=== PATIENT | female | born 1930 | race Caucasian/White ===

== ENCOUNTER → 2016-02-28 | Outpatient (CLI) | payer OTHER ==
[~2016-02-28] MED LIST: ALPR0.25 PO; AMOX500C3 PO; ASCOCRY2 PO; BUPR1DIS TD; BUPR20DI TOP; BUSP5TAB59 PO; CETI10TA10 PO; CHOL100010 PO; CLTP PO; CMD25 PO; CYAN100048 PO; CYM/60 PO; DOCU-94 PO; FIBER PO; FLUT0.15 INTNAS; HYDR-3983 PO; LISI10TA PO; LSN/10125 PO; METO25TA3 PO; MULT-1092 PO; MULT-188 PO; MULTTAB58 PO; NUTRTAB55 PO; NXM/40 PO; OSTEO BI FLEX PO; POLY335019 PO; PREG200C PO; PROM12.57 PO; WARF1TAB6 PO; WARF2TAB PO; [UNRECOGNIZED DRUG - CODE] TD
[2016-02-28 13:30] LABS: BASO % 0.3 %; BASO ABS # 0.02 K/uL (0-0.2); COMPLETE YES; EOS % 1.7 %; HEMATOCRIT 40.1 % (37-47); IG% 0.3 %; LYMPH % 24.2 %; LYMPH ABS # 1.43 K/uL (1.2-3.4); MEAN CELL VOLUME 92.8 fL (80-100); MEAN CORPUSCULAR HEMOGLOBIN 30.6 pg (25-34); MEAN CORPUSCULAR HGB CONC 32.9 g/dl (32-36); MEAN PLATELET VOLUME 10.2 fL (7.4-10.4); MONO % 11.7 %; NEUT % 61.8 %; PLATELET COUNT 229 K/uL (130-400); RED BLOOD COUNT 4.32 M/uL (4.2-5.4); WHITE BLOOD COUNT 5.91 K/uL (4.8-10.8)
[2016-02-28 13:49] LABS: ESTIMATED AVERAGE GLUCOSE 117 mg/dl; HA1C FLAG Normal (Normal)
[2016-02-28 14:28] LABS: BLOOD UREA NITROGEN 13 mg/dl (7-18); CREATININE 0.73 mg/dl (0.60-1.20); GLUCOSE 101 mg/dl (70-99)
[2016-02-28 14:29] LABS: BUN/CREATININE RATIO 18.2 (10-20); CALCIUM 9.3 mg/dl (8.5-10.1); CARBON DIOXIDE 25 mmol/L (21-32); CHLORIDE 107 mmol/L (98-107); POTASSIUM 4.2 mmol/L (3.5-5.1); SODIUM 144 mmol/L (136-145)
== END | disposition home or self-care (01) ==
LOC: C.LAB1850 12:10
PROVIDERS: ATTEND Internal Medicine Geriatric Medicine
DX: I10 Essential (primary) hypertension (principal); R73.9 Hyperglycemia, unspecified; M54.16 Radiculopathy, lumbar region; E55.9 Vitamin D deficiency, unspecified

== ENCOUNTER 2016-07-07 11:12 | Emergency (ER) | payer OTHER ==
[~2016-07-07] VITALS: Ht 167.6 cm; Wt 114.5 kg
[~2016-07-07 11:12] MED LIST changes: -AMOX500C3 PO; -BUPR1DIS TD; -BUPR20DI TOP; -BUSP5TAB59 PO; -CHOL100010 PO; -CYAN100048 PO; -FLUT0.15 INTNAS; -LISI10TA PO; -METO25TA3 PO; -MULT-1092 PO; -NUTRTAB55 PO; -PROM12.57 PO; -WARF1TAB6 PO
[2016-07-07 11:17] VITALS: Ht 167.6 cm; Wt 114.5 kg
[2016-07-07 11:30] VITALS: O2SAT 97
[2016-07-07] MEDS ORDERED: MoRPHine SULFATE 10 MG/ML CARP/VIAL IV STA (11:48)
[2016-07-07] MEDS ORDERED: MoRPHine SULFATE 2 MG/ML CARP ONE (11:58)
[2016-07-07] MEDS ORDERED: MoRPHine SULFATE 4 MG/ML 1 ML CARP\\VIAL ONE (12:04)
--- NOTE | 2016-07-07 12:36 | DIAGNOSTIC IMAGING REPORT ---
LEFT FOOT MIN 3 VIEWS ROUTINE CLINICAL HISTORY: Lateral left foot pain at base of fifth. COMPARISON: None FINDINGS: Tarsometatarsal joints are intact. There is osteopenia. 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 No acute fracture is identified although evaluation of the toes is difficult due to chronic deformity. IMPRESSION: 1. No acute fracture or dislocation of the left foot although evaluation of the toes is difficult due to chronic deformity. 2. Severe arthritis within the left midfoot. 3. Osteopenia. Electronically signed by: Pablo Ramirez M.D. 07/07/2016 12:35 PM Dictated Date/Time: 07/07/2016 12:31 PM
[2016-07-07] MEDS ORDERED: LISI10TA PO (12:43)
[2016-07-07] MEDS ORDERED: METO25TA3 PO (12:43)
[2016-07-07] MEDS ORDERED: FLUT0.15 INTNAS (12:43)
[2016-07-07] MEDS ORDERED: BUPR1DIS TD (12:43)
[2016-07-07] MEDS ORDERED: CYAN100048 PO (12:43)
[2016-07-07] MEDS ORDERED: AMOX500C3 PO (12:43)
[2016-07-07] MEDS ORDERED: MULT-1092 PO (12:43)
[2016-07-07] MEDS ORDERED: NUTRTAB55 PO (12:43)
[2016-07-07] MEDS ORDERED: FENTANYL CITRATE INJ 50 MCG/1 ML 2 ML VIAL IV ONE (13:00)
[2016-07-07 13:16] LABS: BASO % 0.3 %; BASO ABS # 0.02 K/uL (0-0.2); COMPLETE YES; EOS % 0.6 %; HEMATOCRIT 43.2 % (37-47); IG% 0.1 %; LYMPH % 23.5 %; MEAN CELL VOLUME 91.7 fL (80-100); MEAN CORPUSCULAR HEMOGLOBIN 31.4 pg (25-34); MEAN CORPUSCULAR HGB CONC 34.3 g/dl (32-36); MEAN PLATELET VOLUME 10.1 fL (7.4-10.4); MONO % 8.1 %; NEUT % 67.4 %; PLATELET COUNT 223 K/uL (130-400); RED BLOOD COUNT 4.71 M/uL (4.2-5.4)
[2016-07-07 13:28] LABS: BUN/CREATININE RATIO 15.6 (10-20); CALCIUM 9.4 mg/dl (8.5-10.1); CREATININE 0.81 mg/dl (0.60-1.20); POTASSIUM 4.1 mmol/L (3.5-5.1)
[2016-07-07] MEDS ORDERED: HYDROmorphone INJ 0.5 MG/0.5 ML SYR IV STA (14:24)
[2016-07-07] MEDS ORDERED: PREGABALIN 100 MG CAP PO STA (14:24)
[2016-07-07 15:22] VITALS: BP 172/60; PULSE 60; TEMP 36.9; O2SAT 96
--- NOTE | 2016-07-07 15:26 | EMERGENCY ROOM VISIT NOTE ---
History Report prepared by Melissa: David Bedoya Under the Supervision of: Dr. Kade Whitley D.O. First contact with patient: 11:31 Chief Complaint: FOOT PAIN Stated Complaint: LEG PAIN History of Present Illness The patient is an 86 year old female who presents to the Emergency Room with complaints of persistent left foot pain that started around 0130 this morning. The patient says the pain woke her up. She notes that she has had neuropathy for quite a few years, but has never had pain this bad before. She says that she is currently nauseated due to the pain. The patient denies any new left leg pain, abdominal pain, new back pain, chest pain, or shortness of breath. She says that she had gone 2 months without any pain before this episode began. The patient states that she has bad arthritis. Her medication list includes Lyrica, Cymbalta, and a Butrans patch. She says that she has gotten behind on her pain medications because she has felt so badly today. Source of History: patient, family Onset: Around 0130 this morning Position: foot (left) Symptom Intensity: worse than ever before Timing: other (persistent) Associated Symptoms: + nausea, No SOB, No abdominal pain, No back pain, No chest pain Note: Associated symptoms: Denies any new leg pain. Review of Systems See HPI for pertinent positives & negatives. A total of 10 systems reviewed and were otherwise negative. Past Medical & Surgical Medical Problems: (1) Benign hypertension (2) Carcinoma of breast (3) Gastroesophageal reflux disease (4) HIP JOINT REPLACEMENT STATUS (5) HX-VENOUS THROMBOSIS&EMBOLISM (6) KNEE JOINT REPLACEMENT STATUS (7) Sleep apnea (8) SSS (sick sinus syndrome) Family History Cancer Heart disease Hypertension Social History Smoking Status: Never Smoker Drug Use: none Marital Status: Housing Status: unknown Occupation Status: retired Current/Historical Medications Scheduled Alprazolam (Xanax), 0.125 MG PO HS Amoxicillin (Amoxil), 500 MG PO TID Ascorbic Acid (Karo-C), 1 TAB PO DAILY Buprenorphine (Butrans), 15 MCG TD WK Cetirizine Hcl (Zyrtec), 10 MG PO DAILY Cyanocobalamin (Vitamin B-12), 1 TAB PO DAILY Docusate Sodium (Colace), 2 CAP PO HS Duloxetine HCl (Cymbalta), 90 MG PO DAILY Esomeprazole Magnesium (Nexium), 40 MG PO DAILY Fiber Laxative (Fiber Laxative), 4 TABS PO TID Fluticasone Propionate (Nasal) (Flonase Allergy Relief), 2 SPRAYS INTNAS DAILY Lisinopril (Prinivil), 10 MG PO DAILY Metoprolol Succ (Toprol Xl) (Toprol-Xl), 25 MG PO DAILY Multiple Vitamin (Multivitamin), 1 TAB PO DAILY Multiple Vitamins W/ Minerals (Ocuvite), 1 TAB PO BID Multiple Vitamins W/ Minerals (Centrum Silver 50+Women), 1 TAB PO DAILY Nutritional Supplements (Osteo Advance), 1 TAB PO DAILY Polyethylene Glycol 3350 (Miralax), 17 GM PO DAILY Pregabalin (Lyrica), 200 MG PO BID Warfarin Sodium (Coumadin), 2 MG PO DAILY Scheduled PRN Hydrocodone/Acetaminophen 7.5MG/325MG ([place] 7.5MG/325MG), 1 TAB PO DAILY PRN for Pain Allergies Coded Allergies: Egg (Verified Allergy, Unknown, DIARRHEA, NAUSEATED, 02/02/15) POLLEN (Verified Allergy, Unknown, ALLERGY TO ALEGRE, 02/02/15) Prednisone (Verified Allergy, Unknown, unknown, 02/02/15) pt does not remember reaction Physical Exam Vital Signs Date Time Temp Pulse Resp B/P Pulse Ox O2 Delivery O2 Flow Rate FiO2 07/07/16 14:47 60 172/60 96 Room Air 07/07/16 13:44 64 20 165/76 95 Room Air 07/07/16 12:02 89 20 97 Room Air 07/07/16 11:30 97 Room Air 07/07/16 11:17 36.9 71 20 173/88 97 Room Air Physical Exam GENERAL: disheveled, sitting up in bed, in no distress EYE EXAM: normal conjunctiva OROPHARYNX: no exudate, no erythema, lips, buccal mucosa, and tongue normal and mucous membranes are moist NECK: supple, no nuchal rigidity, no adenopathy, non-tender LUNGS: Clear to auscultation. Normal chest wall mechanics HEART: no murmurs, S1 normal and S2 normal ABDOMEN: abdomen soft, non-tender, normo-active bowel sounds, no masses, no rebound or guarding. BACK: Back is symmetrical on inspection and there is no deformity, no midline tenderness, no CVA tenderness. SKIN: no rashes and no bruising UPPER EXTREMITIES: upper extremities are grossly normal. LOWER EXTREMITIES: Hypersensitivity of lateral left foot with no swelling or induration. Plantar and dorsal flexion intact. NEURO EXAM: Normal sensorium. Medical Decision & Procedures ER Provider Diagnostic Interpretation: Radiology results as stated below per my review and the radiologist's interpretation: LEFT FOOT MIN 3 VIEWS ROUTINE CLINICAL HISTORY: Lateral left foot pain at base of fifth. COMPARISON: None FINDINGS: Tarsometatarsal joints are intact. There is osteopenia. 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 No acute fracture is identified although evaluation of the toes is difficult due to chronic deformity. IMPRESSION: 1. No acute fracture or dislocation of the left foot although evaluation of the toes is difficult due to chronic deformity. 2. Severe arthritis within the left midfoot. 3. Osteopenia. Electronically signed by: Pablo Ramirez M.D. 07/07/2016 12:35 PM Dictated Date/Time: 07/07/2016 12:31 PM Laboratory Results 07/07/16 11:20 Red Blood Count 4.71, Mean Corpuscular Volume 91.7, Mean Corpuscular Hemoglobin 31.4, Mean Corpuscular Hemoglobin Concent 34.3, Mean Platelet Volume 10.1, Neutrophils (%) (Auto) 67.4, Lymphocytes (%) (Auto) 23.5, Monocytes (%) (Auto) 8.1, Eosinophils (%) (Auto) 0.6, Basophils (%) (Auto) 0.3, Neutrophils # (Auto) 4.58, Lymphocytes # (Auto) 1.60, Monocytes # (Auto) 0.55, Eosinophils # (Auto) 0.04, Basophils # (Auto) 0.02 07/07/16 11:20 Test 07/07/16 11:20 White Blood Count 6.80 K/uL (4.8-10.8) Red Blood Count 4.71 M/uL (4.2-5.4) Hemoglobin 14.8 g/dL (12.0-16.0) Hematocrit 43.2 % (37-47) Mean Corpuscular Volume 91.7 fL (80-100) Mean Corpuscular Hemoglobin 31.4 pg (25-34) Mean Corpuscular Hemoglobin Concent 34.3 g/dl (32-36) Platelet Count 223 K/uL (130-400) Mean Platelet Volume 10.1 fL (7.4-10.4) Neutrophils (%) (Auto) 67.4 % Lymphocytes (%) (Auto) 23.5 % Monocytes (%) (Auto) 8.1 % Eosinophils (%) (Auto) 0.6 % Basophils (%) (Auto) 0.3 % Neutrophils # (Auto) 4.58 K/uL (1.4-6.5) Lymphocytes # (Auto) 1.60 K/uL (1.2-3.4) Monocytes # (Auto) 0.55 K/uL (0.11-0.59) Eosinophils # (Auto) 0.04 K/uL (0-0.5) Basophils # (Auto) 0.02 K/uL (0-0.2) RDW Standard Deviation 42.1 fL (36.4-46.3) RDW Coefficient of Variation 12.4 % (11.5-14.5) Immature Granulocyte % (Auto) 0.1 % Immature Granulocyte # (Auto) 0.01 K/uL (0.00-0.02) Anion Gap 7.0 mmol/L (3-11) Est Creatinine Clear Calc Drug Dose 66.4 ml/min Estimated GFR () 77.3 Estimated GFR (Non- 66.7 BUN/Creatinine Ratio 15.6 (10-20) Calcium Level 9.4 mg/dl (8.5-10.1) Laboratory results per my review. Medications Administered Medications (Trade) Dose Ordered Sig/Ana Cristina Route Start Time Stop Time Status Last Admin Dose Admin Morphine Sulfate (MoRPHine SULFATE INJ) 2 mg STK-MED ONCE .ROUTE 07/07/16 11:58 07/07/16 11:59 DC 07/07/16 12:02 2 MG Morphine Sulfate (MoRPHine SULFATE INJ) 4 mg STK-MED ONCE .ROUTE 07/07/16 12:04 07/07/16 12:05 DC 07/07/16 12:31 4 MG Fentanyl Citrate (Fentanyl Inj) 75 mcg NOW ONCE IV 07/07/16 13:00 07/07/16 13:01 DC 07/07/16 13:41 75 MCG Pregabalin (Lyrica Cap) 200 mg NOW STAT PO 07/07/16 14:24 5/14/17 14:25 DC 07/07/16 14:49 200 MG Hydromorphone HCl (Dilaudid Inj) 0.5 mg NOW STAT IV 07/07/16 14:24 07/07/16 14:25 DC 07/07/16 14:33 0.5 MG ED Course ED COURSE: Vital signs were reviewed and showed hypertensive vitals. The patients medical record was reviewed The above diagnostic studies were performed and reviewed. ED treatments and interventions as stated above. 1141: The patient was evaluated in room C9. A complete history and physical examination was performed. 1148: Ordered Morphine Sulfate Inj 6 mg IV. 1257: I reevaluated the patient and she is still having foot pain. 1300: Ordered Fentanyl Inj 75 mcg IV. 1340: I reevaluated the patient and she is still having pain. 1423: I reevaluated the patient and she is still in a lot of pain. 1424: Ordered Dilaudid Inj 0.5 mg IV, Lyrica Cap 200 mg PO. 1453: I reevaluated the patient and she is still complaining of pain. 1523: Upon reevaluation, the patient is ambulating and feeling better.I discussed my findings with the patient and family understands and agrees with the treatment plan. Based on the patients age, coexisting illnesses, exam and lab findings the decision to treat as an outpatient was made. The patient remained stable while under my care. The patient appeared well at the time of discharge. Medical Decision Prior records reviewed and summarized above. Triage Nursing notes reviewed and agree them. Differential diagnosis: Etiologies such as fracture, dislocation, neurovascular compromise, compartment syndrome, soft tissue injury, as well as others were entertained. Patient is an 86-year-old female who presents the ER for left lateral foot pain. She notes that this has been present since around 1 AM this morning. She notes that she has been getting this pain for the past several years and moves from one foot to the other. Signs of trauma, erythema or induration. Good pulses. Patient is neurologically intact. She is able to ambulate. She was discharged following morphine, Dilaudid and fentanyl to follow-up with her primary care doctor. Care management will set up an earlier appointment with pain management. Discussed with Pt concerning signs and symptoms to watch out for. Pt was instructed to follow up with their PCP and discussed with the patient their option to return to the ED at anytime for persistent or worsening symptoms. The appropriate anticipatory guidance and out-patient management, including indications for return to the emergency department, were explained at length to the patient and understood. Impression Primary Impression: Foot pain Scribe Attestation The scribe's documentation has been prepared under my direction and personally reviewed by me in its entirety. I confirm that the note above accurately reflects all work, treatment, procedures, and medical decision making performed by me. Departure Information Referrals Mauricio Duran M.D. (PCP) Patient Instructions My [facility] Problem Qualifiers Primary Impression: Foot pain Laterality: left Qualified Codes: M79.672 - Pain in left foot
[2016-07-18] MEDS ORDERED: WARF1TAB6 PO (11:24)
[2016-07-18] MEDS ORDERED: CHOL100010 PO (11:24)
[2016-11-20] MEDS ORDERED: CMD25 PO (11:07)
[2017-01-21] MEDS ORDERED: BUPR20DI TOP (10:53)
== END 2016-07-07 15:23 | disposition home or self-care (01) ==
LOC: EDBD 11:12 → C.EDC 11:13
DX: M79.672 Pain in left foot (principal); M19.072 Primary osteoarthritis, left ankle and foot; M85.872 Other specified disorders of bone density and structure, left ankle and foot; G62.9 Polyneuropathy, unspecified; I10 Essential (primary) hypertension; K21.9 Gastro-esophageal reflux disease without esophagitis; I49.5 Sick sinus syndrome; G47.30 Sleep apnea, unspecified; Z85.3 Personal history of malignant neoplasm of breast; Z96.649 Presence of unspecified artificial hip joint; Z96.659 Presence of unspecified artificial knee joint; Z86.718 Personal history of other venous thrombosis and embolism; Z79.01 Long term (current) use of anticoagulants; Z82.49 Family history of ischemic heart disease and other diseases of the circulatory system

== ENCOUNTER → 2016-08-07 | Outpatient (CLI) | payer OTHER ==
[~2016-08-07] MED LIST changes: -ALPR0.25 PO; +BUPR1DIS TD; +BUPR20DI TOP; +BUSP5TAB59 PO; +CHOL100010 PO; -CLTP PO; +CYAN100048 PO; -DOCU-94 PO; +FLUT0.15 INTNAS; +LISI10TA PO; -LSN/10125 PO; +METO25TA3 PO; +MULT-1092 PO; +NUTRTAB55 PO; -OSTEO BI FLEX PO; +PROM12.57 PO; +WARF1TAB6 PO; -[UNRECOGNIZED DRUG - CODE] TD
[2016-08-07 17:28] LABS: BASO % 0.3 %; BASO ABS # 0.02 K/uL (0-0.2); COMPLETE YES; EOS % 2.3 %; HEMATOCRIT 41.7 % (37-47); IG% 0.2 %; LYMPH % 30.2 %; LYMPH ABS # 1.96 K/uL (1.2-3.4); MEAN CELL VOLUME 94.1 fL (80-100); MEAN CORPUSCULAR HEMOGLOBIN 30.9 pg (25-34); MEAN CORPUSCULAR HGB CONC 32.9 g/dl (32-36); MONO % 11.8 %; NEUT % 55.2 %; PLATELET COUNT 219 K/uL (130-400); RED BLOOD COUNT 4.43 M/uL (4.2-5.4)
[2016-08-07 18:17] LABS: BLOOD UREA NITROGEN 13 mg/dl (7-18); BUN/CREATININE RATIO 18.1 (10-20); CALCIUM 8.8 mg/dl (8.5-10.1); CARBON DIOXIDE 30 mmol/L (21-32); CHLORIDE 106 mmol/L (98-107); CREATININE 0.73 mg/dl (0.60-1.20); GLUCOSE 86 mg/dl (70-99); POTASSIUM 4.5 mmol/L (3.5-5.1); SODIUM 142 mmol/L (136-145)
[2016-08-07 18:27] LABS: FERRITIN 127.9 ng/ml (8.0-388.0); THYROID STIMULATING HORMONE 0.905 uIu/ml (0.300-4.500)
[2016-08-08 06:39] LABS: ESTIMATED AVERAGE GLUCOSE 123 mg/dl; HA1C FLAG Normal (Normal)
== END | disposition home or self-care (01) ==
LOC: C.LABBC 15:09
PROVIDERS: ATTEND Internal Medicine Geriatric Medicine
DX: I10 Essential (primary) hypertension (principal); G47.33 Obstructive sleep apnea (adult) (pediatric); R73.9 Hyperglycemia, unspecified; M19.90 Unspecified osteoarthritis, unspecified site; I49.5 Sick sinus syndrome; E55.9 Vitamin D deficiency, unspecified; I48.0 Paroxysmal atrial fibrillation; F41.8 Other specified anxiety disorders

== ENCOUNTER → 2016-08-29 | Outpatient (CLI) | payer OTHER ==
[~2016-08-29] MED LIST changes: -BUPR20DI TOP
--- NOTE | 2016-08-29 16:08 | DIAGNOSTIC IMAGING REPORT ---
ABDOMEN 2VIEW W/PA CHEST RTN HISTORY:86 yearsFemaleNAUSEA COMPARISON: Chest radiographs 02/03/2015, lumbar spine radiographs 04/20/2013. TECHNIQUE: Upright AP view the chest with upright (sitting) and supine views of the abdomen. FINDINGS: The cardiac silhouette is again moderately enlarged with atherosclerosis of the aorta. Left pectoral dual-lead pacer is again noted with leads appearing to be intact. No pneumothorax or pleural effusion. There is primary vascular prominence with mild background interstitial coarsening, unchanged. Severe osteoarthritis is present within the left shoulder with apparent partial ankylosis of the superior portion of the joint space. Right shoulder hemiarthroplasty is noted. IVC filter is noted in the right upper abdomen at the level of L1-L2. Right hip arthroplasty noted. Severe osteoarthritis of the left hip. The bones are diffusely demineralized. There is convex left curvature of the lumbar spine. Vascular calcifications are noted. Nondilated gas-filled loops of both large and small bowel are seen throughout the abdomen without definite pneumoperitoneum or obstructive pattern. IMPRESSION: 1. Multiple nondilated gas-filled loops of large and small bowel may reflect adynamic ileus. No evidence of bowel obstruction or pneumoperitoneum. 2. Unchanged cardiomegaly with mild background interstitial coarsening. The above report was generated using voice recognition software. It may contain grammatical, syntax or spelling errors. Electronically signed by: Erwin Quiñonez 08/29/2016 4:07 PM Dictated Date/Time: 08/29/2016 4:01 PM
== END | disposition home or self-care (01) ==
LOC: C.RADBC 14:32
PROVIDERS: ATTEND Physician Assistant
DX: R11.0 Nausea (principal); Z96.641 Presence of right artificial hip joint

== ENCOUNTER → 2016-08-30 | Outpatient (CLI) | payer OTHER ==
--- NOTE | 2016-08-30 15:03 | DIAGNOSTIC IMAGING REPORT ---
ABDOMEN 2VIEW W/PA CHEST RTN CLINICAL HISTORY: NAUSEA R11.0 COMPARISON STUDY: 08/29/2016 FINDINGS: The heart is enlarged. There is a left subclavian dual-chamber central venous pacemaker present. No free air is visualized. There is interstitial thickening. There are advanced arthritic changes involving the left shoulder. There are postsurgical changes of a total right shoulder arthroplasty.] Supine views the abdomen reveal an IVC filter. There are postsurgical changes of a total right hip arthroplasty. There are advanced arthritic changes present within the left hip. There are no abnormally dilated loops of large or small bowel. There are no transition zones indicate bowel obstruction. There are multiple pelvic basin calcifications, likely representing phleboliths. IMPRESSION: No evidence of bowel obstruction. No evidence of free air. Electronically signed by: Samuel Cristina M.D. 08/30/2016 3:01 PM Dictated Date/Time: 08/30/2016 2:59 PM
== END | disposition home or self-care (01) ==
LOC: C.RAD 13:55
PROVIDERS: ATTEND Physician Assistant
DX: R11.0 Nausea (principal); Z95.0 Presence of cardiac pacemaker; I51.7 Cardiomegaly

== ENCOUNTER 2016-08-31 09:46 | Emergency (ER) | payer OTHER ==
[~2016-08-31] VITALS: Ht 167.6 cm; Wt 109.6 kg
[~2016-08-31 09:46] MED LIST changes: -BUSP5TAB59 PO; -CMD25 PO; -PROM12.57 PO
[2016-08-31] MEDS ORDERED: ONDANSETRON INJ 2 MG/ML 2 ML VIAL IV STA (10:01)
[2016-08-31] MEDS ORDERED: SODIUM CHLORIDE 0.9% 1000ML 1,000 ML IV STA (10:01)
[2016-08-31] MEDS ORDERED: PROMETHAZINE HCL INJ 6.25 MG in SODIUM CHLORIDE 0.9% 50ML 50 ML IV STA (10:03)
[2016-08-31 10:10] VITALS: TEMP 36.8; Ht 167.6 cm; Wt 109.6 kg
[2016-08-31] MEDS ORDERED: OPTIRAY 320 IV PRN (10:15)
--- NOTE | 2016-08-31 10:19 | DIAGNOSTIC IMAGING REPORT ---
CHEST ONE VIEW PORTABLE CLINICAL HISTORY: Pain, radiating to the abdomen COMPARISON STUDY: 08/30/2016 FINDINGS: The heart remains mildly enlarged. There is aortic tortuosity. There is a left subclavian dual-chamber central venous pacemaker present. There is stable interstitial thickening. There is no lobar consolidation. Advanced arthritic changes are present within the left shoulder. There are postsurgical changes of a right shoulder arthroplasty. No pleural effusions are visualized.[ IMPRESSION: Cardiomegaly and stable interstitial thickening. No evidence of focal pulmonary consolidation. No evidence of free intraperitoneal air. Electronically signed by: Samuel Cristina M.D. 08/31/2016 10:18 AM Dictated Date/Time: 08/31/2016 10:16 AM
--- NOTE | 2016-08-31 10:36 | EMERGENCY ROOM VISIT NOTE ---
History Report prepared by Melissa: Charlotte Lieberman Under the Supervision of: Dr. Johnathan Berrios D.O. First contact with patient: 09:51 Stated Complaint: ABD PAIN History of Present Illness The patient is a 86 year old female who presents to the Emergency Room with complaints of constant nausea beginning 4 days ago. The patient states that she had an ileus recently and has been on a liquid diet since her procedure. 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 The patient reports that she saw her doctor yesterday and got an x-ray that showed a gas loop in her bowel. She complains of constant upper and lower abdominal pain. She denies any vomiting, fever, black stools, and bloody stools. Source of History: patient Onset: 4 days ago Position: other (global) Quality: other (nausea) Timing: constant Associated Symptoms: + abdominal pain, No fevers, No vomiting Note: Pt denies any black or bloody stools. Review of Systems See HPI for pertinent positives & negatives. A total of 10 systems reviewed and were otherwise negative. Past Medical & Surgical Medical Problems: (1) Benign hypertension (2) Carcinoma of breast (3) Gastroesophageal reflux disease (4) HIP JOINT REPLACEMENT STATUS (5) HX-VENOUS THROMBOSIS&EMBOLISM (6) KNEE JOINT REPLACEMENT STATUS (7) Sleep apnea (8) SSS (sick sinus syndrome) Family History Cancer Heart disease Hypertension Social History Smoking Status: Never Smoker Drug Use: none Marital Status: Housing Status: unknown Occupation Status: retired Current/Historical Medications Scheduled Ascorbic Acid (Karo-C), 1 TAB PO DAILY Buprenorphine (Butrans), 15 MCG TD WK Buspirone Hcl (Buspirone Hcl), 5 MG PO DAILY Cetirizine Hcl (Zyrtec), 10 MG PO DAILY Cholecalciferol (Vitamin D), 1,000 MG PO QD Cyanocobalamin (Vitamin B-12), 1 TAB PO DAILY Duloxetine HCl (Cymbalta), 90 MG PO DAILY Esomeprazole Magnesium (Nexium), 40 MG PO DAILY Fiber Laxative (Fiber Laxative), 4 TABS PO TID Fluticasone Propionate (Nasal) (Flonase Allergy Relief), 2 SPRAYS INTNAS DAILY Lisinopril (Prinivil), 10 MG PO DAILY Metoprolol Succ (Toprol Xl) (Toprol-Xl), 25 MG PO DAILY Multiple Vitamin (Multivitamin), 1 TAB PO DAILY Multiple Vitamins W/ Minerals (Ocuvite), 1 TAB PO BID Multiple Vitamins W/ Minerals (Centrum Silver 50+Women), 1 TAB PO DAILY Nutritional Supplements (Osteo Advance), 1 TAB PO DAILY Polyethylene Glycol 3350 (Miralax), 17 GM PO DAILY Pregabalin (Lyrica), 200 MG PO BID Promethazine (Phenergan ), 1 TABS PO Q6 Warfarin Sodium (Coumadin), 2 MG PO DAILY Scheduled PRN Hydrocodone/Acetaminophen 7.5MG/325MG ([place] 7.5MG/325MG), 1 TAB PO DAILY PRN for Pain Allergies Coded Allergies: Egg (Verified Allergy, Unknown, DIARRHEA, NAUSEATED, 08/31/16) POLLEN (Verified Allergy, Unknown, ALLERGY TO ALEGRE, 08/31/16) Prednisone (Verified Allergy, Unknown, unknown, 08/31/16) pt does not remember reaction Physical Exam Vital Signs Date Time Temp Pulse Resp B/P (MAP) Pulse Ox O2 Delivery O2 Flow Rate FiO2 08/31/16 15:04 62 20 180/83 95 08/31/16 14:30 62 20 180/83 95 Room Air 08/31/16 12:43 61 20 182/65 90 Room Air 08/31/16 11:33 61 20 180/88 94 Room Air 08/31/16 10:10 36.8 78 14 191/87 95 Room Air 08/31/16 10:09 72 Physical Exam GENERAL: Patient is awake and alert. Patient is uncomfortable and very anxious appearing EYES: The conjunctivae are clear. The pupils are round and reactive. EARS, NOSE, MOUTH AND THROAT: The nose is without any evidence of any deformity. Mucous membranes are moist tongue is midline NECK: The neck is nontender and supple. RESPIRATORY: Normal respiratory effort is noted there is no evidence of wheezing rhonchi or rales CARDIOVASCULAR: Regular rate and rhythm noted there no murmurs rubs or gallops normal S1 normal S2 GASTROINTESTINAL: The abdomen is soft. Bowel sounds are present in all quadrants. Abdomen is moderately distended and diffusely tender, there was no specific guarding but tenderness was moderate to severe. MUSCULOSKELETAL/EXTREMITIES: There is no evidence of gross deformity full range of motion is noted in the hips and shoulders SKIN: There is no obvious evidence of any rash. There are no petechiae, pallor or cyanosis noted. Pedal edema bilaterally. NEUROLOGIC: Patient is awake alert and oriented x3 Medical Decision & Procedures ER Provider Diagnostic Interpretation: Radiology results as stated below per my review and radiologist interpretation: CHEST ONE VIEW PORTABLE FINDINGS: The heart remains mildly enlarged. There is aortic tortuosity. There is a left subclavian dual-chamber central venous pacemaker present. There is stable interstitial thickening. There is no lobar consolidation. Advanced arthritic changes are present within the left shoulder. There are postsurgical changes of a right shoulder arthroplasty. No pleural effusions are visualized.[ IMPRESSION: Cardiomegaly and stable interstitial thickening. No evidence of focal pulmonary consolidation. No evidence of free intraperitoneal air. Electronically signed by: Samuel Cristina M.D. 08/31/2016 10:18 AM Dictated Date/Time: 08/31/2016 10:[address] ABD/PELVIS IV CONTRAST ONLY FINDINGS: Lower chest: There is bibasal interstitial thickening. The heart is enlarged. There is a hiatal hernia. Liver: The contrast-enhanced liver is normal in size, contour, and attenuation. There is no intrahepatic biliary ductal dilatation. The hepatic veins and portal veins are patent. Gallbladder: Not visualized and presumed surgically absent Spleen: Normal in size and attenuation. Pancreas: Mildly atrophic Adrenal glands: Unremarkable. Kidneys: There are left renal hypodensities the largest of which measures 9 mm. These likely represent cysts Bowel: There are no transition zones indicate bowel obstruction. By history the appendix is surgically absent. There is colonic diverticulosis. There is no acute peridiverticular inflammatory change. Peritoneum: There is no intraperitoneal free air or abdominal ascites. There are postsurgical changes of a ventral hernia repair. Vasculature: There is no evidence of abdominal aortic aneurysm. There is an indwelling IVC filter. Adenopathy: None. Pelvic viscera: The bladder, and pelvic viscera are unremarkable. There is artifact secondary to a right hip arthroplasty. Skeletal structures: There is right iliopsoas atrophy. Degenerative changes are present within the spine. There are advanced arthritic changes present within the left hip. There is a total right hip arthroplasty. Acetabular screw extends into the soft tissue pelvis IMPRESSION: 1. No evidence of bowel obstruction. No evidence of free air 2. Diverticulosis. No evidence of acute diverticulitis 3. Surgically absent appendix 4. No acute inflammatory changes Electronically signed by: Samuel Cristina M.D. 08/31/2016 11:31 AM Dictated Date/Time: 08/31/2016 11:[address] HEAD WITHOUT CONTRAST (CT) FINDINGS: No intra or extra-axial mass lesions are visualized. There is no CT evidence of acute cortical infarction. There is no evidence of midline shift. There is no acute hemorrhage. No calvarial fractures are visualized. There are patchy white matter hypodensities likely on a small vessel basis. There is no evidence of pathologic ventricular dilatation. There is sphenoid sinus mucosal thickening similar to the prior 2013 study. Vascular enhancement is secondary to contrast received during a CT scan earlier in the day IMPRESSION: No acute intracranial findings Electronically signed by: Samuel Cristina M.D. 08/31/2016 1:15 PM Dictated Date/Time: 08/31/2016 1:13 PM Laboratory Results 08/31/16 10:25 Red Blood Count 4.62, Mean Corpuscular Volume 91.3, Mean Corpuscular Hemoglobin 30.7, Mean Corpuscular Hemoglobin Concent 33.6, Mean Platelet Volume 9.7, Neutrophils (%) (Auto) 69.9, Lymphocytes (%) (Auto) 18.3, Monocytes (%) (Auto) 10.3, Eosinophils (%) (Auto) 1.0, Basophils (%) (Auto) 0.3, Neutrophils # (Auto ) 4.37, Lymphocytes # (Auto) 1.14, Monocytes # (Auto) 0.64, Eosinophils # (Auto ) 0.06, Basophils # (Auto) 0.02 08/31/16 10:25 Test 08/31/16 10:25 08/31/16 10:33 08/31/16 10:37 White Blood Count 6.24 K/uL (4.8-10.8) Red Blood Count 4.62 M/uL (4.2-5.4) Hemoglobin 14.2 g/dL (12.0-16.0) Hematocrit 42.2 % (37-47) Mean Corpuscular Volume 91.3 fL (80-100) Mean Corpuscular Hemoglobin 30.7 pg (25-34) Mean Corpuscular Hemoglobin Concent 33.6 g/dl (32-36) Platelet Count 215 K/uL (130-400) Mean Platelet Volume 9.7 fL (7.4-10.4) Neutrophils (%) (Auto) 69.9 % Lymphocytes (%) (Auto) 18.3 % Monocytes (%) (Auto) 10.3 % Eosinophils (%) (Auto) 1.0 % Basophils (%) (Auto) 0.3 % Neutrophils # (Auto) 4.37 K/uL (1.4-6.5) Lymphocytes # (Auto) 1.14 K/uL (1.2-3.4) Monocytes # (Auto) 0.64 K/uL (0.11-0.59) Eosinophils # (Auto) 0.06 K/uL (0-0.5) Basophils # (Auto) 0.02 K/uL (0-0.2) RDW Standard Deviation 42.3 fL (36.4-46.3) RDW Coefficient of Variation 12.6 % (11.5-14.5) Immature Granulocyte % (Auto) 0.2 % Immature Granulocyte # (Auto) 0.01 K/uL (0.00-0.02) Prothrombin Time 21.0 SECONDS (9.0-12.0) Prothromb Time International Ratio 1.9 (0.9-1.1) Activated Partial Thromboplast Time 34.1 SECONDS (21.0-31.0) Partial Thromboplastin Ratio 1.3 Urine Color YELLOW Urine Appearance CLEAR (CLEAR) Urine pH 8.5 (4.5-7.5) Urine Specific [place] 1.009 (1.000-1.030) Urine Protein NEG (NEG) Urine Glucose (UA) NEG (NEG) Urine Ketones 2+ (NEG) Urine Occult Blood TRACE (NEG) Urine Nitrite NEG (NEG) Urine Bilirubin NEG (NEG) Urine Urobilinogen NEG (NEG) Urine Leukocyte Esterase NEG (NEG) Urine WBC (Auto) 1-5 /hpf (0-5) Urine RBC (Auto) 5-10 /hpf (0-4) Urine Hyaline Casts (Auto) 0 /lpf (0-5) Urine Epithelial Cells (Auto) 10-20 /lpf (0-5) Urine Bacteria (Auto) NEG (NEG) Est Creatinine Clear Calc Drug Dose 62.5 ml/min Estimated GFR () 74.0 Estimated GFR (Non- 63.8 BUN/Creatinine Ratio 12.6 (10-20) Calcium Level 9.0 mg/dl (8.5-10.1) Total Bilirubin 1.2 mg/dl (0.2-1) Direct Bilirubin 0.2 mg/dl (0-0.2) Aspartate Amino Transf (AST/SGOT) 16 U/L (15-37) Alanine Aminotransferase (ALT/SGPT) 16 U/L (12-78) Alkaline Phosphatase 84 U/L (45-117) Total Creatine Kinase 53 U/L (26-192) Creatine Kinase MB 1.2 ng/ml (0.5-3.6) Creatine Kinase MB Ratio 2.3 (0-3.0) Troponin I 0.015 ng/ml (0-0.045) Total Protein 7.5 gm/dl (6.4-8.2) Albumin 3.5 gm/dl (3.4-5.0) Lipase 81 U/L (73-393) Bedside Lactic Acid Venous 1.21 mmol/L (0.90-1.70) Bedside Hemoglobin 15.0 g/dl (12.0-16.0) Bedside Hematocrit 44 % (37-47) Bedside Sodium 141 mEq/L (135-144) Bedside Potassium 3.8 mEq/L (3.3-5.0) Bedside Chloride 103 mEq/L (101-112) Bedside Total CO2 24 mEq/l (24-31) Anion Gap 19.0 mmol/L (16-25) Bedside Blood Urea Nitrogen 10 mg/dl (7-18) Bedside Creatinine 0.7 mg/dl (0.6-1.3) Bedside Glucose (other) 108 mg/dl (70-99) Bedside Ionized Calcium (Rachel) 1.14 mmol/l (1.12-1.32) Laboratory results per my review. Medications Administered Medications (Trade) Dose Ordered Sig/Ana Cristina Route Start Time Stop Time Status Last Admin Dose Admin Sodium Chloride 1,000 ml @ 999 mls/hr Q1H1M STAT IV 08/31/16 10:01 08/31/16 11:01 DC 08/31/16 11:33 999 MLS/HR Promethazine HCl 6.25 mg/Sodium Chloride 50.25 ml @ 204 mls/hr NOW STAT IV 08/31/16 10:03 08/31/16 10:17 DC 08/31/16 11:33 204 MLS/HR Acetaminophen/ Hydrocodone Bitart ([place] 7.5/325 Tab) 1 tab NOW STAT PO 08/31/16 13:33 08/31/16 13:34 DC 08/31/16 13:58 1 TAB ECG Indication: abdominal pain Rate (beats per minute): 71 Rhythm: other (atrial paced) Findings: other (no PVCs, No ST segment abnormalities) Comparison ECG Date: 02/02/15 Change: no significant change ED Course 0951: The patient was evaluated in room A12B. A complete history and physical examination were performed. 1001: Zofran Inj 4mg IV, NSS 1,000 ml @ 999 mls/hr IV, Promethazine HCl 6.25mg/ Sodium Chloride 50.25ml @ 204mls/hr IV. 1333: Hydrocodone Bitart/Acetaminophen 1 tab PO. 1402: I reevaluated and updated the patient. 1419: Upon reevaluation, the patient is doing well. I discussed the results and treatment plan with the patient. She verbalized agreement of the treatment plan. The patient was discharged home. Medical Decision Differential diagnosis: Etiologies such as appendicitis, diverticulitis, PUD, biliary pathology, UTI, pancreatitis, obstruction, mesenteric ischemia, aortic pathology, infections, inflammatory bowel disease, renal colic, as well as others were entertained. Medication Reconciliation: I attest that I have personally reviewed the patient' s current medications list. Blood pressure screening: Patient was found to have an elevated blood pressure and was referred to their primary doctor for recheck and further treatment. The patient is an 86-year-old female who presented to the emergency department for ongoing abdominal discomfort and nausea. It sounds of the patient started having the symptoms recently and was seen by her primary care physician. She was treated with antiemetics prior to arrival but continued to have significant nausea. She further was treated in the emergency department and on subsequent reevaluation was feeling much better. I was concerned given the patient's history and physical exam she had some other significant intra-abdominal pathology. I was shocked by the lack of findings on her CT of the abdomen and pelvis. For this reason a CT the head was obtained to also encouraged for this was not a neurologic cause for her nausea. The patient was reevaluated multiple times. I discussed the patient's laboratory and radiographic studies with her and her family members. She was encouraged to continue all medications as prescribed and follow-up with her family doctor soon as possible return to the emergency department immediately symptoms change worsen or the need arises. Impression Primary Impression: Nausea Additional Impression: Abdominal pain Scribe Attestation The scribe's documentation has been prepared under my direction and personally reviewed by me in its entirety. I confirm that the note above accurately reflects all work, treatment, procedures, and medical decision making performed by me. Departure Information Dispostion Home / Self-Care Prescriptions Promethazine (Phenergan ) 12.5 Mg Tab 1 TABS PO Q6 for Nausea or Vomiting, #20 TAB Prov: Johnathan Berrios, DO 08/31/16 Referrals Mauricio Duran M.D. (PCP) Forms HOME CARE DOCUMENTATION FORM, IMPORTANT VISIT INFORMATION Patient Instructions My [facility], Nausea Vomit Control Additional Instructions Call your family doctor on Friday to schedule a follow-up appointment. Continue all medications as prescribed. Continue drinking plenty of liquids. Have a repeat blood pressure check with your family this week because her blood pressure was mildly elevated today in the emergency department. Problem Qualifiers Additional Impression: Abdominal pain Abdominal location: unspecified location Qualified Codes: R10.9 - Unspecified abdominal pain
[2016-08-31 10:46] LABS: BASO % 0.3 %; BASO ABS # 0.02 K/uL (0-0.2); COMPLETE YES; HEMATOCRIT 42.2 % (37-47); IG% 0.2 %; LYMPH % 18.3 %; LYMPH ABS # 1.14 K/uL (1.2-3.4); MEAN CELL VOLUME 91.3 fL (80-100); MEAN CORPUSCULAR HEMOGLOBIN 30.7 pg (25-34); MEAN CORPUSCULAR HGB CONC 33.6 g/dl (32-36); MEAN PLATELET VOLUME 9.7 fL (7.4-10.4); MONO % 10.3 %; NEUT % 69.9 %; PLATELET COUNT 215 K/uL (130-400); RED BLOOD COUNT 4.62 M/uL (4.2-5.4); WHITE BLOOD COUNT 6.24 K/uL (4.8-10.8)
[2016-08-31 10:54] LABS: INR 1.9 (0.9-1.1); PARTIAL THROMBOPLASTIN RATIO 1.3
[2016-08-31 11:00] LABS: ISTAT CREATININE 0.7 mg/dl (0.6-1.3); ISTAT IONIZED CALCIUM 1.14 mmol/l (1.12-1.32)
[2016-08-31 11:05] LABS: URINE APPEARANCE CLEAR (CLEAR); URINE BILIRUBIN NEG (NEG); URINE COLOR YELLOW; URINE NITRITE NEG (NEG); URINE PH 8.5 (4.5-7.5); URINE SPECIFIC GRAVITY 1.009 (1.000-1.030); UROBILINOGEN NEG (NEG)
[2016-08-31 11:08] LABS: MANUAL MICROSCOPIC REQUIRED? NO; REVIEW REQ? NO
[2016-08-31 11:09] LABS: BUN/CREATININE RATIO 12.6 (10-20); CREATININE 0.84 mg/dl (0.60-1.20); POTASSIUM 3.9 mmol/L (3.5-5.1)
[2016-08-31 11:15] LABS: CKMB/CK RATIO 2.3 (0-3.0)
--- NOTE | 2016-08-31 11:33 | DIAGNOSTIC IMAGING REPORT ---
CT ABD/PELVIS IV CONTRAST ONLY CLINICAL HISTORY: Lower abdominal pain. Nausea. COMPARISON STUDY: 09/13/2012 TECHNIQUE: Following the IV administration of 94 mL of Optiray-320, CT scan of the abdomen and pelvis was performed from the lung bases to the proximal femurs. Images are reviewed in the axial, sagittal, and coronal planes. IV contrast was administered without complication. CT DOSE: 1507.86 mGy.cm FINDINGS: Lower chest: There is bibasal interstitial thickening. The heart is enlarged. There is a hiatal hernia. Liver: The contrast-enhanced liver is normal in size, contour, and attenuation. There is no intrahepatic biliary ductal dilatation. The hepatic veins and portal veins are patent. Gallbladder: Not visualized and presumed surgically absent Spleen: Normal in size and attenuation. Pancreas: Mildly atrophic Adrenal glands: Unremarkable. Kidneys: There are left renal hypodensities the largest of which measures 9 mm. These likely represent cysts Bowel: There are no transition zones indicate bowel obstruction. By history the appendix is surgically absent. There is colonic diverticulosis. There is no acute peridiverticular inflammatory change. Peritoneum: There is no intraperitoneal free air or abdominal ascites. There are postsurgical changes of a ventral hernia repair. Vasculature: There is no evidence of abdominal aortic aneurysm. There is an indwelling IVC filter. Adenopathy: None. Pelvic viscera: The bladder, and pelvic viscera are unremarkable. There is artifact secondary to a right hip arthroplasty. Skeletal structures: There is right iliopsoas atrophy. Degenerative changes are present within the spine. There are advanced arthritic changes present within the left hip. There is a total right hip arthroplasty. Acetabular screw extends into the soft tissue pelvis IMPRESSION: 1. No evidence of bowel obstruction. No evidence of free air 2. Diverticulosis. No evidence of acute diverticulitis 3. Surgically absent appendix 4. No acute inflammatory changes Electronically signed by: Samuel Cristina M.D. 08/31/2016 11:31 AM Dictated Date/Time: 08/31/2016 11:26 AM
[2016-08-31] MEDS ORDERED: BUSP5TAB59 PO (11:53)
--- NOTE | 2016-08-31 13:16 | DIAGNOSTIC IMAGING REPORT ---
CT HEAD WITHOUT CONTRAST (CT) CLINICAL HISTORY: nausea COMPARISON STUDY: 11/30/2013 TECHNIQUE: Axial CT of the brain is performed from the vertex to the skull base. IV contrast was not administered for this examination. CT DOSE: 638.84 mGy.cm FINDINGS: No intra or extra-axial mass lesions are visualized. There is no CT evidence of acute cortical infarction. There is no evidence of midline shift. There is no acute hemorrhage. No calvarial fractures are visualized. There are patchy white matter hypodensities likely on a small vessel basis. There is no evidence of pathologic ventricular dilatation. There is sphenoid sinus mucosal thickening similar to the prior 2013 study. Vascular enhancement is secondary to contrast received during a CT scan earlier in the day IMPRESSION: No acute intracranial findings Electronically signed by: Samuel Cristina M.D. 08/31/2016 1:15 PM Dictated Date/Time: 08/31/2016 1:13 PM
[2016-08-31] MEDS ORDERED: HYDROCODONE/ACETAMINOPHEN 7.5/325MG TAB PO STA (13:33)
[2016-08-31] MEDS ORDERED: PROM12.57 PO (14:07)
[2016-08-31 15:04] VITALS: BP 180/83; PULSE 62; O2SAT 95
[2016-11-20] MEDS ORDERED: CMD25 PO (11:07)
== END 2016-08-31 15:00 | disposition home or self-care (01) ==
LOC: EDBD 09:46 → C.EDA 09:47
DX: R11.0 Nausea (principal); R10.10 Upper abdominal pain, unspecified; R10.30 Lower abdominal pain, unspecified; I10 Essential (primary) hypertension; K21.9 Gastro-esophageal reflux disease without esophagitis; Z85.3 Personal history of malignant neoplasm of breast; Z79.01 Long term (current) use of anticoagulants; Z79.899 Other long term (current) drug therapy

== ENCOUNTER → 2017-03-07 | Outpatient (CLI) | payer OTHER ==
[~2017-03-07] MED LIST changes: -BUPR1DIS TD; +BUPR20DI TOP; +BUSP5TAB59 PO; +CMD25 PO; -WARF1TAB6 PO
[2017-03-07 16:52] LABS: BASO % 0.3 %; BASO ABS # 0.02 K/uL (0-0.2); EOS % 1.7 %; HEMOGLOBIN 13.2 g/dL (12.0-16.0); IG# 0.01 K/uL (0.00-0.02); LYMPH % 30.4 %; LYMPH ABS # 1.82 K/uL (1.2-3.4); MEAN CORPUSCULAR HEMOGLOBIN 30.7 pg (25-34); MEAN PLATELET VOLUME 10.1 fL (7.4-10.4); MONO % 14.4 %; MONO ABS # 0.86 K/uL (0.11-0.59); NEUT ABS # 3.18 K/uL (1.4-6.5); PLATELET COUNT 202 K/uL (130-400); RED CELL DISTRIBUTION WIDTH CV 13.3 % (11.5-14.5); RED CELL DISTRIBUTION WIDTH SD 44.9 fL (36.4-46.3); WHITE BLOOD COUNT 5.99 K/uL (4.8-10.8)
[2017-03-07 17:02] LABS: ALBUMIN 3.3 gm/dl (3.4-5.0); ALT/SGPT 14 U/L (12-78); BLOOD UREA NITROGEN 13 mg/dl (7-18); CARBON DIOXIDE 29 mmol/L (21-32); CREATININE 0.65 mg/dl (0.60-1.20); GLUCOSE 81 mg/dl (70-99); POTASSIUM 4.5 mmol/L (3.5-5.1); SODIUM 139 mmol/L (136-145)
[2017-03-07 17:05] LABS: ALKALINE PHOSPHATASE 79 U/L (45-117); AST/SGOT 14 U/L (15-37); TOTAL PROTEIN 7.2 gm/dl (6.4-8.2)
[2017-03-08 06:53] LABS: HEMOGLOBIN A1C 5.9 % (4.5-5.6)
== END | disposition home or self-care (01) ==
LOC: C.LABBC 13:55
PROVIDERS: ATTEND Internal Medicine Geriatric Medicine
DX: E55.9 Vitamin D deficiency, unspecified (principal); I10 Essential (primary) hypertension; J45.909 Unspecified asthma, uncomplicated; G62.9 Polyneuropathy, unspecified; R73.9 Hyperglycemia, unspecified; Z79.01 Long term (current) use of anticoagulants; Z51.81 Encounter for therapeutic drug level monitoring

== ENCOUNTER 2017-07-07 10:55 | Inpatient (IN) | payer OTHER ==
[2017-07-06 22:43] VITALS: BP 116/50; PULSE 59; TEMP 36.8; O2SAT 92
[~2017-07-07] VITALS: Ht 167.6 cm; Wt 118.7 kg
[~2017-07-07 10:55] MED LIST changes: -BUPR20DI TOP; -CETI10TA10 PO; +ROPI0.5T15 PO; +TAPE1TAB10 PO
[2017-07-07 11:05] VITALS: Ht 167.6 cm; Wt 118.7 kg
[2017-07-07] MEDS ORDERED: PROM12.57 PO (11:21)
[2017-07-07] MEDS ORDERED: CETI10TA84 PO (11:21)
[2017-07-07 11:31] LABS: BASO % 0.1 %; BASO ABS # 0.01 K/uL (0-0.2); EOS % 0.1 %; EOS ABS # 0.02 K/uL (0-0.5); HEMATOCRIT 38.7 % (37-47); HEMOGLOBIN 12.8 g/dL (12.0-16.0); IG# 0.03 K/uL (0.00-0.02); LYMPH % 6.7 %; LYMPH ABS # 0.92 K/uL (1.2-3.4); MEAN CELL VOLUME 92.1 fL (80-100); MEAN CORPUSCULAR HEMOGLOBIN 30.5 pg (25-34); MEAN CORPUSCULAR HGB CONC 33.1 g/dl (32-36); MEAN PLATELET VOLUME 9.5 fL (7.4-10.4); MONO % 13.1 %; NEUT % 79.8 %; NEUT ABS # 10.91 K/uL (1.4-6.5); PLATELET COUNT 193 K/uL (130-400); RED CELL DISTRIBUTION WIDTH CV 13.7 % (11.5-14.5); WHITE BLOOD COUNT 13.69 K/uL (4.8-10.8)
[2017-07-07 11:40] LABS: INR 2.5 (0.9-1.1)
[2017-07-07 11:44] LABS: ALBUMIN 3.2 gm/dl (3.4-5.0); CALCIUM 8.6 mg/dl (8.5-10.1); CREATININE 0.92 mg/dl (0.60-1.20); POTASSIUM 4.3 mmol/L (3.5-5.1)
[2017-07-07 11:47] LABS: TOTAL PROTEIN 7.2 gm/dl (6.4-8.2)
--- NOTE | 2017-07-07 12:02 | DIAGNOSTIC IMAGING REPORT ---
CHEST ONE VIEW PORTABLE CLINICAL HISTORY: vomiting HEMATURIA COMPARISON STUDY: 7024 FINDINGS: The heart is enlarged. There is a left subclavian dual-chamber central venous pacemaker. There is a right cardiophrenic angle opacity, likely representing an enlarged right atrium. There is slight elevation of the interstitium. An element of mild portal vascular congestion cannot be excluded. There is no lobar consolidation. There are no pleural effusions. There are advanced arthritic changes present within the left shoulders. There are postsurgical changes of a right shoulder arthroplasty..[ IMPRESSION: Cardiomegaly and possible mild pulmonary vascular congestion. No evidence of focal pulmonary consolidation. Electronically signed by: Samuel Cristina M.D. 07/07/2017 12:00 PM Dictated Date/Time: 07/07/2017 11:58 AM
--- NOTE | 2017-07-07 12:25 | DIAGNOSTIC IMAGING REPORT ---
CT SCAN OF THE ABDOMEN AND PELVIS WITHOUT CONTRAST CLINICAL HISTORY: hematuria, vomiting COMPARISON STUDY: 08/31/2016 TECHNIQUE: CT scan of the abdomen and pelvis was performed from the lung bases to the proximal femurs. Images are reviewed in the axial, sagittal, and coronal planes. IV contrast was not administered for this examination. A dose lowering technique was utilized adhering to the principles of ALARA. CT DOSE: 1899.59 mGy.cm FINDINGS: Lower chest: There are bibasilar atelectatic changes. There is a hiatal hernia. The heart is enlarged. Liver: The unenhanced liver is normal in size, contour, and attenuation. There is no intrahepatic biliary ductal dilatation. Gallbladder: Not visualized and presumed surgically absent. There is a hyperdense focus within distal common bile duct. In retrospect this was present on the prior study. This could represent a chronic common bile duct calculus. Spleen: Normal in size and attenuation. Pancreas: Unremarkable. Adrenal glands: Unremarkable. Kidneys: No renal, ureteral, or bladder calculi are visualized. Bowel: There are no transition zone to indicate bowel obstruction. There is colonic diverticulosis. There are no acute peridiverticular inflammatory changes. The appendix is not visualized. There is no evidence of acute appendicitis. Peritoneum: There is no intraperitoneal free air or abdominal ascites. Vasculature: The abdominal aorta is normal in course and caliber. An IVC filter is again visualized. Several of the struts project beyond the IVC lumen. This remains unchanged. Adenopathy: None. Pelvic viscera: The bladder, and pelvic viscera are unremarkable. Skeletal structures: There are postsurgical changes of a total right hip arthroplasty. There are advanced arthritic changes within the left hip. IMPRESSION: 1. No evidence of bowel obstruction. No evidence of free air 2. Diverticulosis. No evidence of acute diverticulitis 3. Surgically absent appendix 4. No renal, ureteral, or bladder calculi identified 5. Calcified lesion at the level of the distal common bile duct. In retrospect this was present on the prior study. A chronic nonobstructing common bile duct calculus should be considered in the differential of this lesion. Electronically signed by: Samuel Cristina M.D. 07/07/2017 12:23 PM Dictated Date/Time: 07/07/2017 12:15 PM
[2017-07-07] MEDS ORDERED: SODIUM CHLORIDE 0.9% 250ML 250 ML IV STA (12:30)
[2017-07-07] MEDS ORDERED: SODIUM CHLORIDE 0.9% 1000ML 1,000 ML IV STA (12:30)
--- NOTE | 2017-07-07 13:59 | DIAGNOSTIC IMAGING REPORT ---
ABDOMINAL ULTRASOUND, RIGHT UPPER QUADRANT HISTORY: vomiting, elevated LFTs. COMPARISON: CT of the abdomen and pelvis July 07, 2017. FINDINGS: This exam is moderately compromised by suboptimal penetration. The common bile duct is dilated, measuring 1.1 cm in caliber. The 1.2 x 0.8 cm calcified intraluminal abnormality within the distal common bile duct shown on CT is not evident on this exam, likely due to technique. This is consistent with choledocholithiasis. The pancreas is obscured by overlying bowel gas. The gallbladder is surgically absent. There is no right hydronephrosis. IMPRESSION: Extrahepatic biliary ductal dilatation with common bile duct measuring 1.1 cm in caliber. The 1.2 x 0.8 cm common bile duct calculus shown on CT performed earlier today is not evident on this exam due to technique. Electronically signed by: Pablo Ramirez M.D. 07/07/2017 1:57 PM Dictated Date/Time: 07/07/2017 1:53 PM
[2017-07-07] MEDS ORDERED: AMPICILLIN/SULBACTAM SOD INJ 3,000 MG in SODIUM CHLORIDE 0.9% 100ML 100 ML IV ONE (15:00)
--- NOTE | 2017-07-07 15:36 | Gastrointestinal Consultation ---
Gastrointestinal Consultation Date of Consultation: July 07, 2017 Attending Physician: Dr. Malone Consulting Physician: Dr. Montero Reason for Consultation: vomiting, elevated LFTs History of Present Illness Patient is a 87 year old female patient of Dr. Jamie Duran with a hx of SSS S/P pacemaker insertion, Rt Breast cancer S/P lumpectomy (no radiation or chemotherapy), osteoarthritis, Sleep apnea on CPAP, HTN and GERD. She also has a hx of DVTs on warfarin also with a myesha filter. She presented to the ED today with c/o chills, weakness and what the thought was blood in her urine. On arrival, LFTs were elevated: T bili 3.7, D Bili 2.6, AST 247, ALT 169, Alk Phos 205. She has leukocytosis at 13.69 and Zosyn is being started. INR is 2.5. She is seen and examined while resting on a stretcher in the ED. She is awake, alert, oriented, afebrile and denies abdominal pain. She did have some nausea or vomiting yesterday. She appears mildly jaundiced and is chilled. CXR with mild pulmonary congestion. RUQ US with bile duct dilation to 1.1cm and a visible stone. 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 Past Medical/Surgical History Medical Problems: (1) Abdominal pain Status: Acute (2) Foot pain Status: Acute (3) Nausea Status: Acute Past Medical History: 1. HTN 2. SSS 3. Breast cancer 4. Osteoarthritis 5. GERD 5. Sleep Apnea on CPAP 6. Spinal meningitis 1990 Past Surgical History: 1. Right breast lumpectomy 2. Pacemaker insertion 3. Dalton filter 4. Cholecystectomy (more than 40 yrs ago) 5. Multiple orthopeudic surgeries (bilat knees, bilat hips, shoulder replacement ), carpal tunnel repair. Family History Cancer Heart disease Hypertension Social History Smoking Status: Never Smoker Drug Use: none Marital Status: Housing Status: unknown Occupation Status: retired Allergies Coded Allergies: Egg (Verified Allergy, Unknown, DIARRHEA, NAUSEATED, 07/07/17) POLLEN (Verified Allergy, Unknown, ALLERGY TO ALEGRE, 07/07/17) Prednisone (Verified Allergy, Unknown, unknown, 07/07/17) pt does not remember reaction Current Medications Home Meds and Scripts Medications Dose Route/Sig Max Daily Dose Days Date Category Dose Instructions Phenergan (Promethazine HCl) 12.5 Mg Tab 12.5 Mg PO Q6H PRN 07/07/17 Reported Zyrtec (Cetirizine HCl) 10 Mg Tab 10 Mg PO DAILY 07/07/17 Reported Nucynta Er (Tapentadol Hcl) 100 Mg Tab 1 Tab PO BID 05/21/17 Reported Requip (Ropinirole HCl) 0.5 Mg Tab 0.5 Mg PO BID 04/22/17 Reported Coumadin (Warfarin Sod) 2.5 Mg Tab 2.5 Mg PO Q2D 11/20/16 Reported Buspirone Hcl 5 Mg Tab 5 Mg PO DAILY 08/31/16 Reported Vitamin D (Cholecalciferol) 1,000 Unit Tab 1,000 Mg PO QD 07/18/16 Reported Centrum Silver 50+Women (Multiple Vitamins W/ Minerals) 1 Tab Tab 1 Tab PO DAILY 07/07/16 Reported Osteo Advance (Nutritional Supplements) 1 Tab Tab 1 Tab PO DAILY 07/07/16 Reported Vitamin B-12 (Cyanocobalamin) 1,000 Mcg Sub 1 Tab PO DAILY 07/07/16 Reported Toprol-Xl (Metoprolol Succinate) 25 Mg Tabcr 25 Mg PO DAILY 07/07/16 Reported Prinivil (Lisinopril) 10 Mg Tab 10 Mg PO DAILY 07/07/16 Reported Miralax (Polyethylene Glycol 3350) 1 Pow 17 Gm PO DAILY 04/25/16 Reported Coumadin (Warfarin Sodium) 2 Mg Tab 2 Mg PO Q2D 06/26/15 Reported Fiber Laxative (Fiber) Ea 4 Tabs PO TID 02/02/15 Reported Cymbalta (Duloxetine HCl) 60 Mg Cap 90 Mg PO DAILY 07/19/14 Reported Lyrica (Pregabalin) 200 Mg Cap 200 Mg PO BID 07/19/14 Reported Ocuvite (Multiple Vitamins W/ Minerals) 1 Tab Tab 1 Tab PO BID 11/22/13 Reported [place] 7.5MG/325MG (Acetaminophen/Hydrocodone Bitart) Tab 1 Tab PO DAILY PRN 11/22/13 Reported PRN PAIN Karo-C (Ascorbic Acid) 1 Cry Cry 1 Tab PO DAILY 09/13/12 Reported Multivitamin (Multiple Vitamin) 1 Tab Tab 1 Tab PO DAILY 09/13/12 Reported Nexium (Esomeprazole Magnesium) 40 Mg Capcr 40 Mg PO DAILY 01/23/09 Reported Review of Systems Constitutional: + chills, + weakness, No fever, No sweats, No weight loss Eyes: No eye pain, No redness ENT: No sore throat, No trouble swallowing, No pain on swallowing Respiratory: No cough, No wheezing, No shortness of breath, No dyspnea on exertion Cardiac: No chest pain, No edema, No palpitations Abdomen: + see HPI, + jaundice, + dark urine, No pain, No nausea, No vomiting, No constipation, No GI bleeding, No dysphagia, No odynophagia, No acolic stools Female : No dysuria Neuro: No memory loss, No weakness, No numbness/tingling, No vertigo, No balance problems Psych: No depression symptoms, No anxiety, No insomnia Heme: No abnormal bleeding/bruising, No night sweats Endo: No excessive thirst, No excessive urination Skin: No rash, No itch, No new/changing skin lesions, No jaundice Physical Exam Date Time Temp Pulse Resp B/P (MAP) Pulse Ox O2 Delivery O2 Flow Rate FiO2 07/07/17 14:43 80 18 150/79 96 07/07/17 13:55 63 18 157/85 95 Room Air 07/07/17 12:34 62 18 142/61 94 Room Air 07/07/17 12:34 66 07/07/17 11:05 37.1 82 21 137/67 94 Room Air General Appearance: + mild distress (chills) Eyes: normal inspection, EOMI Neck: supple, no adenopathy, thyroid normal, no JVD Respiratory/Chest: chest non-tender, lungs clear, normal breath sounds, no accessory muscle use Cardiovascular: regular rate, rhythm, no JVD, + tachycardia (2-3/6 systolic murmur) Abdomen: normal bowel sounds, non tender, soft, no organomegaly Extremities: normal inspection, no pedal edema, normal capillary refill, + pedal edema (mild, bilat) Neurologic/Psych: alert, normal mood/affect, oriented x 3 Skin: normal color, warm/dry, no rash, + jaundice (mild) Laboratory Results Last 24 Hours Test 07/07/17 11:17 07/07/17 11:55 White Blood Count 13.69 K/uL Red Blood Count 4.20 M/uL Hemoglobin 12.8 g/dL Hematocrit 38.7 % Mean Corpuscular Volume 92.1 fL Mean Corpuscular Hemoglobin 30.5 pg Mean Corpuscular Hemoglobin Concent 33.1 g/dl Platelet Count 193 K/uL Mean Platelet Volume 9.5 fL Neutrophils (%) (Auto) 79.8 % Lymphocytes (%) (Auto) 6.7 % Monocytes (%) (Auto) 13.1 % Eosinophils (%) (Auto) 0.1 % Basophils (%) (Auto) 0.1 % Neutrophils # (Auto) 10.91 K/uL Lymphocytes # (Auto) 0.92 K/uL Monocytes # (Auto) 1.80 K/uL Eosinophils # (Auto) 0.02 K/uL Basophils # (Auto) 0.01 K/uL RDW Standard Deviation 46.0 fL RDW Coefficient of Variation 13.7 % Immature Granulocyte % (Auto) 0.2 % Immature Granulocyte # (Auto) 0.03 K/uL Prothrombin Time 26.1 SECONDS Prothromb Time International Ratio 2.5 Activated Partial Thromboplast Time 37.0 SECONDS Partial Thromboplastin Ratio 1.4 Sodium Level 140 mmol/L Potassium Level 4.3 mmol/L Chloride Level 105 mmol/L Carbon Dioxide Level 28 mmol/L Anion Gap 7.0 mmol/L Blood Urea Nitrogen 16 mg/dl Creatinine 0.92 mg/dl Est Creatinine Clear Calc Drug Dose 58.6 ml/min Estimated GFR () 65.8 Estimated GFR (Non- 56.8 BUN/Creatinine Ratio 17.1 Random Glucose 98 mg/dl Calcium Level 8.6 mg/dl Magnesium Level 2.0 mg/dl Total Bilirubin 3.7 mg/dl Direct Bilirubin 2.6 mg/dl Aspartate Amino Transf (AST/SGOT) 247 U/L Alanine Aminotransferase (ALT/SGPT) 169 U/L Alkaline Phosphatase 205 U/L Total Protein 7.2 gm/dl Albumin 3.2 gm/dl Urine Color DK YELLOW Urine Appearance CLEAR Urine pH 6.0 Urine Specific [place] 1.022 Urine Protein NEG Urine Glucose (UA) NEG Urine Ketones NEG Urine Occult Blood TRACE Urine Nitrite Urine Bilirubin 2+ Urine Urobilinogen NEG Urine Leukocyte Esterase SMALL Urine WBC (Auto) 1-5 /hpf Urine RBC (Auto) 10-30 /hpf Urine Hyaline Casts (Auto) 1-5 /lpf Urine Epithelial Cells (Auto) 10-20 /lpf Urine Bacteria (Auto) NEG RUQ US 07/07/17: Extrahepatic biliary ductal dilatation with common bile duct measuring 1.1 cm in caliber. The 1.2 x 0.8 cm common bile duct calculus shown on CT performed earlier today is not evident on this exam due to technique. Non contrast CT 07/07/17 1. No evidence of bowel obstruction. No evidence of free air 2. Diverticulosis. No evidence of acute diverticulitis 3. Surgically absent appendix 4. No renal, ureteral, or bladder calculi identified 5. Calcified lesion at the level of the distal common bile duct. In retrospect this was present on the prior study. A chronic nonobstructing common bile duct calculus should be considered in the differential of this lesion. Impression Patient is a 87 year old female with choledocholithiasis and suspected cholangitis. Plan 1. Vit K 10mg po today. 2. Clear liquids po today. 3. Plan for ERCP tomorrow by Dr. Montero. 4. Recheck LFTs, INR tomorrow. I performed a history and physical examination of the patient, including specifically on physical exam, no abdominal tenderness. I have discussed the patient's management with Alton Nguyen. Please refer to the SOCIAL SERVICE DIRECTOR's note for the documented findings and plan of care. Patient presented with an episode of chills and vomiting, noted with dilated CBD to 1.2cm, CT scan showed CBD stone, LFTs showed elevated Bilirubin around 3. Has slight leukocytosis. Clinically suspect cholangitis, she is stable with normal BP, no sign of sepsis. Her INR is 2.5. She is scheduled for ERCP tomorrow pending her INR normalizes in anticipation for sphincterotomy. Start her on Zosyn, monitor clinically for sepsis and give Vitamin K. If INR does not normalize tomorrow will give FFP.
--- NOTE | 2017-07-07 15:37 | EMERGENCY ROOM VISIT NOTE ---
History Report prepared by Melissa: Dalton Cheng Under the Supervision of: Dr. Corinne Veras M.D. First contact with patient: 11:14 Chief Complaint: HEMATURIA Stated Complaint: LEG PAIN/ BLOOD IN URINE Nursing Triage Summary: pt states increased pain in left leg, woke up and used restroom and saw blood in toilet pt claims is from bladder, pt states nausea with vomiting last night, denies diarrhea. History of Present Illness The patient is a 87 year old female who presents to the Emergency Room with complaints of constant difficulty walking beginning last night. She states that she has been having problems with walking for the past 10 years, but it worsened last night. The patient adds that she vomited last night. She also complains of hematuria, back pain, and central abdominal pain. She denies rectal bleeding, diarrhea, or flank pain. The patient states that she was with her family all day yesterday for mothers day, and may have gotten sick from this. Her INR was 2.7 last week. She is on Coumadin for previous blood clots. The patient has a history of cholecystectomy. Source of History: patient Onset: Yesterday Quality: other (difficulty walking) Timing: constant Associated Symptoms: + vomiting (last night), + abdominal pain (central), + urinary symptoms (hematuria), No back pain, No melena, No hematochezia, No diarrhea Review of Systems See HPI for pertinent positives & negatives. A total of 10 systems reviewed and were otherwise negative. Past Medical & Surgical Medical Problems: (1) Benign hypertension (2) Carcinoma of breast (3) Gastroesophageal reflux disease (4) HIP JOINT REPLACEMENT STATUS (5) HX-VENOUS THROMBOSIS&EMBOLISM (6) KNEE JOINT REPLACEMENT STATUS (7) Sleep apnea (8) SSS (sick sinus syndrome) Surgical Problems: (1) Hx of cholecystectomy Family History Cancer Heart disease Hypertension Social History Smoking Status: Never Smoker Drug Use: none Marital Status: Housing Status: unknown Occupation Status: retired Current/Historical Medications Scheduled Ascorbic Acid (Karo-C), 1 TAB PO DAILY Buspirone Hcl (Buspirone Hcl), 5 MG PO DAILY Cetirizine (Zyrtec), 10 MG PO DAILY Cholecalciferol (Vitamin D), 1,000 MG PO QD Cyanocobalamin (Vitamin B-12), 1 TAB PO DAILY Duloxetine HCl (Cymbalta), 90 MG PO DAILY Esomeprazole Magnesium (Nexium), 40 MG PO DAILY Fiber Laxative (Fiber Laxative), 4 TABS PO TID Lisinopril (Prinivil), 10 MG PO DAILY Metoprolol Succ (Toprol Xl) (Toprol-Xl), 25 MG PO DAILY Multiple Vitamin (Multivitamin), 1 TAB PO DAILY Multiple Vitamins W/ Minerals (Ocuvite), 1 TAB PO BID Multiple Vitamins W/ Minerals (Centrum Silver 50+Women), 1 TAB PO DAILY Nutritional Supplements (Osteo Advance), 1 TAB PO DAILY Polyethylene Glycol 3350 (Miralax), 17 GM PO DAILY Pregabalin (Lyrica), 200 MG PO BID Ropinirole (Requip), 0.5 MG PO BID Tapentadol Hcl (Nucynta Er), 1 TAB PO BID Warfarin Sod (Coumadin), 2.5 MG PO Q2D Warfarin Sodium (Coumadin), 2 MG PO Q2D Scheduled PRN Hydrocodone/Acetaminophen 7.5MG/325MG ([place] 7.5MG/325MG), 1 TAB PO DAILY PRN for Pain Promethazine (Phenergan ), 12.5 MG PO Q6H PRN for Nausea or Vomiting Allergies Coded Allergies: Egg (Verified Allergy, Unknown, DIARRHEA, NAUSEATED, 07/07/17) POLLEN (Verified Allergy, Unknown, ALLERGY TO ALEGRE, 07/07/17) Prednisone (Verified Allergy, Unknown, unknown, 07/07/17) pt does not remember reaction Physical Exam Vital Signs Date Time Temp Pulse Resp B/P (MAP) Pulse Ox O2 Delivery O2 Flow Rate FiO2 07/07/17 18:01 62 20 111/59 94 Room Air 07/07/17 17:55 63 18 94 07/07/17 17:01 60 20 140/67 94 07/07/17 16:55 61 94 07/07/17 16:36 37.1 18 150/79 07/07/17 16:01 62 20 129/52 95 Room Air 07/07/17 15:55 62 95 07/07/17 15:01 139/60 07/07/17 14:55 63 19 07/07/17 14:43 80 18 150/79 96 07/07/17 14:41 150/79 07/07/17 14:01 158/89 07/07/17 13:55 63 18 157/85 95 Room Air 07/07/17 13:55 64 20 97 07/07/17 13:54 157/85 07/07/17 13:01 154/60 07/07/17 12:55 61 17 95 07/07/17 12:34 62 18 142/61 94 Room Air 07/07/17 12:34 66 07/07/17 12:34 142/61 07/07/17 11:55 63 12 93 07/07/17 11:05 37.1 82 21 137/67 94 Room Air 07/07/17 11:02 137/67 Physical Exam Vital signs reviewed. General: Obese, elderly, chronically ill-appearing female, in no significant distress. HEENT: No scleral icterus, PERRLA, neck supple. Atraumatic. Cardiovascular: Regular rate and rhythm, no extra sounds. Pulmonary: Clear to auscultation bilaterally, normal work of breathing. Abdomen: Soft, obese, nondistended, positive bowel sounds. Epigastric tenderness to palpation. No rebound or guarding. Musculoskeletal: Atraumatic, no peripheral edema. Neurologic: Patient awake alert and oriented x 3 Skin: Warm, dry, no rash Medical Decision & Procedures ER Provider Diagnostic Interpretation: Radiology results as stated below per my review and radiologist interpretation: CHEST ONE VIEW PORTABLE FINDINGS: The heart is enlarged. There is a left subclavian dual-chamber central venous pacemaker. There is a right cardiophrenic angle opacity, likely representing an enlarged right atrium. There is slight elevation of the interstitium. An element of mild portal vascular congestion cannot be excluded. There is no lobar consolidation. There are no pleural effusions. There are advanced arthritic changes present within the left shoulders. There are postsurgical changes of a right shoulder arthroplasty..[ IMPRESSION: Cardiomegaly and possible mild pulmonary vascular congestion. No evidence of focal pulmonary consolidation. Electronically signed by: Samuel Cristina M.D. 07/07/2017 12:[address] SCAN OF THE ABDOMEN AND PELVIS WITHOUT CONTRAST FINDINGS: Lower chest: There are bibasilar atelectatic changes. There is a hiatal hernia. The heart is enlarged. Liver: The unenhanced liver is normal in size, contour, and attenuation. There is no intrahepatic biliary ductal dilatation. Gallbladder: Not visualized and presumed surgically absent. There is a hyperdense focus within distal common bile duct. In retrospect this was present on the prior study. This could represent a chronic common bile duct calculus. Spleen: Normal in size and attenuation. Pancreas: Unremarkable. Adrenal glands: Unremarkable. Kidneys: No renal, ureteral, or bladder calculi are visualized. Bowel: There are no transition zone to indicate bowel obstruction. There is colonic diverticulosis. There are no acute peridiverticular inflammatory changes. The appendix is not visualized. There is no evidence of acute appendicitis. Peritoneum: There is no intraperitoneal free air or abdominal ascites. Vasculature: The abdominal aorta is normal in course and caliber. An IVC filter is again visualized. Several of the struts project beyond the IVC lumen. This remains unchanged. Adenopathy: None. Pelvic viscera: The bladder, and pelvic viscera are unremarkable. Skeletal structures: There are postsurgical changes of a total right hip arthroplasty. There are advanced arthritic changes within the left hip. IMPRESSION: 1. No evidence of bowel obstruction. No evidence of free air 2. Diverticulosis. No evidence of acute diverticulitis 3. Surgically absent appendix 4. No renal, ureteral, or bladder calculi identified 5. Calcified lesion at the level of the distal common bile duct. In retrospect this was present on the prior study. A chronic nonobstructing common bile duct calculus should be considered in the differential of this lesion. Electronically signed by: Samuel Cristina M.D. 07/07/2017 12:23 PM ABDOMINAL ULTRASOUND, RIGHT UPPER QUADRANT FINDINGS: This exam is moderately compromised by suboptimal penetration. The common bile duct is dilated, measuring 1.1 cm in caliber. The 1.2 x 0.8 cm calcified intraluminal abnormality within the distal common bile duct shown on CT is not evident on this exam, likely due to technique. This is consistent with choledocholithiasis. The pancreas is obscured by overlying bowel gas. The gallbladder is surgically absent. There is no right hydronephrosis. IMPRESSION: Extrahepatic biliary ductal dilatation with common bile duct measuring 1.1 cm in caliber. The 1.2 x 0.8 cm common bile duct calculus shown on CT performed earlier today is not evident on this exam due to technique. Electronically signed by: Pablo Ramirez M.D. 07/07/2017 1:57 PM Laboratory Results 07/07/17 11:17 Red Blood Count 4.20, Mean Corpuscular Volume 92.1, Mean Corpuscular Hemoglobin 30.5, Mean Corpuscular Hemoglobin Concent 33.1, Mean Platelet Volume 9.5, Neutrophils (%) (Auto) 79.8, Lymphocytes (%) (Auto) 6.7, Monocytes (%) (Auto) 13.1, Eosinophils (%) (Auto) 0.1, Basophils (%) (Auto) 0.1, Neutrophils # (Auto ) 10.91, Lymphocytes # (Auto) 0.92, Monocytes # (Auto) 1.80, Eosinophils # (Auto ) 0.02, Basophils # (Auto) 0.01 07/07/17 11:17 Test 07/07/17 11:17 07/07/17 11:55 White Blood Count 13.69 K/uL (4.8-10.8) Red Blood Count 4.20 M/uL (4.2-5.4) Hemoglobin 12.8 g/dL (12.0-16.0) Hematocrit 38.7 % (37-47) Mean Corpuscular Volume 92.1 fL (80-100) Mean Corpuscular Hemoglobin 30.5 pg (25-34) Mean Corpuscular Hemoglobin Concent 33.1 g/dl (32-36) Platelet Count 193 K/uL (130-400) Mean Platelet Volume 9.5 fL (7.4-10.4) Neutrophils (%) (Auto) 79.8 % Lymphocytes (%) (Auto) 6.7 % Monocytes (%) (Auto) 13.1 % Eosinophils (%) (Auto) 0.1 % Basophils (%) (Auto) 0.1 % Neutrophils # (Auto) 10.91 K/uL (1.4-6.5) Lymphocytes # (Auto) 0.92 K/uL (1.2-3.4) Monocytes # (Auto) 1.80 K/uL (0.11-0.59) Eosinophils # (Auto) 0.02 K/uL (0-0.5) Basophils # (Auto) 0.01 K/uL (0-0.2) RDW Standard Deviation 46.0 fL (36.4-46.3) RDW Coefficient of Variation 13.7 % (11.5-14.5) Immature Granulocyte % (Auto) 0.2 % Immature Granulocyte # (Auto) 0.03 K/uL (0.00-0.02) Prothrombin Time 26.1 SECONDS (9.0-12.0) Prothromb Time International Ratio 2.5 (0.9-1.1) Activated Partial Thromboplast Time 37.0 SECONDS (21.0-31.0) Partial Thromboplastin Ratio 1.4 Anion Gap 7.0 mmol/L (3-11) Est Creatinine Clear Calc Drug Dose 58.6 ml/min Estimated GFR () 65.8 Estimated GFR (Non- 56.8 BUN/Creatinine Ratio 17.1 (10-20) Calcium Level 8.6 mg/dl (8.5-10.1) Magnesium Level 2.0 mg/dl (1.8-2.4) Total Bilirubin 3.7 mg/dl (0.2-1) Direct Bilirubin 2.6 mg/dl (0-0.2) Aspartate Amino Transf (AST/SGOT) 247 U/L (15-37) Alanine Aminotransferase (ALT/SGPT) 169 U/L (12-78) Alkaline Phosphatase 205 U/L (45-117) Total Protein 7.2 gm/dl (6.4-8.2) Albumin 3.2 gm/dl (3.4-5.0) Urine Color DK YELLOW Urine Appearance CLEAR (CLEAR) Urine pH 6.0 (4.5-7.5) Urine Specific [place] 1.022 (1.000-1.030) Urine Protein NEG (NEG) Urine Glucose (UA) NEG (NEG) Urine Ketones NEG (NEG) Urine Occult Blood TRACE (NEG) Urine Nitrite (NEG) Urine Bilirubin 2+ (NEG) Urine Urobilinogen NEG (NEG) Urine Leukocyte Esterase SMALL (NEG) Urine WBC (Auto) 1-5 /hpf (0-5) Urine RBC (Auto) 10-30 /hpf (0-4) Urine Hyaline Casts (Auto) 1-5 /lpf (0-5) Urine Epithelial Cells (Auto) 10-20 /lpf (0-5) Urine Bacteria (Auto) NEG (NEG) Laboratory results per my review. Medications Administered Medications (Trade) Dose Ordered Sig/Ana Cristina Route Start Time Stop Time Status Last Admin Dose Admin Sodium Chloride 250 ml @ 999 mls/hr Q16M STAT IV 07/07/17 12:30 07/07/17 12:45 DC 5/14/18 15:22 999 MLS/HR Sodium Chloride 1,000 ml @ 150 mls/hr Q6H40M STAT IV 07/07/17 12:30 07/07/17 19:09 07/07/17 12:50 150 MLS/HR Ampicillin Sodium/ Sulbactam Sodium 3000 mg/Sodium Chloride 108 ml @ 200 mls/hr ONE ONCE IV 07/07/17 15:00 07/07/17 15:32 DC 07/07/17 15:22 200 MLS/HR Phytonadione (Mephy[place] Tab) 10 mg NOW STAT PO 07/07/17 15:58 07/07/17 16:10 DC 07/07/17 17:35 10 MG Acetaminophen/ Hydrocodone Bitart ([place] 7.5/325 Tab) 1 tab DAILY PRN PO 07/07/17 17:45 07/21/17 17:44 07/07/17 18:13 1 TAB ECG Per My Interpretation Indication: abdominal pain Rate (beats per minute): 60 Rhythm: other (Atrial paced) Findings: other (Prolonged AV conduction. No ST elevations. No PVCs. ) ED Course 1122: Past medical records reviewed. The patient was evaluated in room B5. A complete history and physical examination was performed. 1230: Ordered Sodium Chloride 1000 ml @ 100 mls/hr IV, Sodium Chloride 250 ml @ 999 mls/hr IV. 1500: Ordered Ampicillin Sodium/Sulbactam Sodium 3000 mg/Sodium Chloride 108 ml @ 200 mls/hr IV. 1512: Upon reevaluation, the patient is resting comfortably. I discussed laboratory and radiographic results with her. She verbalized agreement of the treatment plan. The patient will be evaluated for further management and care. Medical Decision Differential diagnosis: Etiologies such as supratherapeutic INR, bladder mass, appendicitis, diverticulitis, PUD, biliary pathology, UTI, pancreatitis, obstruction, mesenteric ischemia, aortic pathology, infections, inflammatory bowel disease, renal colic, as well as others were entertained. This patient was evaluated and appeared to be in no significant distress. IV access was obtained and laboratory work was drawn. Patient was placed on the monitoring specialist and found to be in an atrially paced rhythm. Patient's vital signs have remained stable. Laboratory work reveals a leukocytosis, elevated bilirubin and transaminases. Patient's INR is 2.5. CT scan of the abdomen pelvis was performed and reveals no obstructive urinary calculi. There is evidence of a biliary stone with a dilated common bile duct. Follow-up ultrasound was performed and is read as above. There is no stone visualized on ultrasonography. I did speak with Dr. Ramirez of radiology who feels that this is secondary to a biliary obstructing stone. Patient was given IV Unasyn 3 g. Gastroenterology, Dr. Montero, was consulted. He will arrange for ERCP tomorrow. Patient and family were made aware of the plan and agree. Dr. Sher of the hospitalist service was consulted for admission and further management. Medication Reconcilliation Current Medication List: was personally reviewed by me Blood Pressure Screening Patient's blood pressure: Elevated blood pressure Blood pressure disposition: Elevated BP felt to be situational Consults Time Called: 1500 Consulting Physician: Dr. Montero - GI Returned Call: [phone] I reviewed the patient's case with Dr. Montero. He will do an ERCP tomorrow on the patient. Additional Consults: Time Called: 1510 Consulted Physician: Dr. Sher - [facility] Hospitalist Returned Call: [phone] Additional Comments: I reviewed the patient's case with Dr. Sher. BETTY will evaluate the patient for further management. Impression Primary Impression: Biliary obstruction Additional Impressions: Biliary stone Status post cholecystectomy Scribe Attestation The scribe's documentation has been prepared under my direction and personally reviewed by me in its entirety. I confirm that the note above accurately reflects all work, treatment, procedures, and medical decision making performed by me. Departure Information Dispostion Being Evaluated By Hospitalist Referrals Mauricio Duran M.D. (PCP) Patient Instructions My [facility] Problem Qualifiers
[2017-07-07] MEDS ORDERED: PHYTONADIONE 5 MG TAB PO STA ×2 (15:45→15:58)
[2017-07-07] MEDS ORDERED: PIPERACILL/TAZOBAC CONSULT ACTIVE PRN (16:00)
[2017-07-07 16:36] VITALS: BP 150/79; TEMP 37.1
[2017-07-07] MEDS ORDERED: ONDANSETRON INJ 2 MG/ML 2 ML VIAL IV PRN (17:30)
[2017-07-07] MEDS ORDERED: ACETAMINOPHEN 325 MG TAB PO PRN (17:30)
--- NOTE | 2017-07-07 17:42 | History and Physical ---
History & Physical Date & Time of Service: July 07, 2017 at 16:52 Chief Complaint: Leg Pain/ Blood In Urine Primary Care Physician: Mauricio Duran M.D. History of Present Illness Ms. Donahue is having left buttock, left leg and left flank pain. She came to the emergency department due to her urine being a reddish color. She has not had any change in her stools which she says usually runs toward constipation. Last night she was nauseas and throwing up which she attributes to a large meal for mother's day. She has some upper middle abdominal pain. Pmhx: ROS Constitutional: no chills, aches, sweats or fever Respiratory: no sob,cough, sputum, or wheezing Cardiac: no chest pain, palpitations, edema, orthopnea or lightheadedness GI:nausea, vomiting, diarrhea or constipation : no dysuria or hesitancy Extremities: no joint pain or weakness Skin: no rash All other systems reviewed and negative Past Medical/Surgical History Medical Problems: (1) Abdominal pain (2) Benign hypertension (3) Carcinoma of breast (4) Cellulitis (5) Deep venous thrombosis (6) Dizziness (7) Foot pain (8) Gastroesophageal reflux disease (9) HIP JOINT REPLACEMENT STATUS (10) HX-VENOUS THROMBOSIS&EMBOLISM (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 (12) Left leg DVT (13) Nausea (14) Sleep apnea (15) SSS (sick sinus syndrome) (16) Vertigo Surgical Problems: (1) Hx of cholecystectomy Family History Cancer Heart disease Hypertension non contributory due to advanced age Social History Smoking Status: Never Smoker Smokeless Tobacco Use: No Drug Use: none Marital Status: Housing status: lives alone Occupational Status: retired Immunizations History of Influenza Vaccine: N/A Influenza Vaccine Date: Jan 16, 2012 History of Tetanus Vaccine?: unknown History of Pneumococcal: Yes Pneumococcal Date: Sep 14, 1992 History of Hepatitis B Vaccine: No Allergies Coded Allergies: Egg (Verified Allergy, Unknown, DIARRHEA, NAUSEATED, 07/07/17) POLLEN (Verified Allergy, Unknown, ALLERGY TO ALEGRE, 07/07/17) Prednisone (Verified Allergy, Unknown, unknown, 07/07/17) pt does not remember reaction Home Medications Scheduled Ascorbic Acid (Karo-C), 1 TAB PO DAILY Buspirone Hcl (Buspirone Hcl), 5 MG PO DAILY Cetirizine (Zyrtec), 10 MG PO DAILY Cholecalciferol (Vitamin D), 1,000 MG PO QD Cyanocobalamin (Vitamin B-12), 1 TAB PO DAILY Duloxetine HCl (Cymbalta), 90 MG PO DAILY Esomeprazole Magnesium (Nexium), 40 MG PO DAILY Fiber Laxative (Fiber Laxative), 4 TABS PO TID Lisinopril (Prinivil), 10 MG PO DAILY Metoprolol Succ (Toprol Xl) (Toprol-Xl), 25 MG PO DAILY Multiple Vitamin (Multivitamin), 1 TAB PO DAILY Multiple Vitamins W/ Minerals (Ocuvite), 1 TAB PO BID Multiple Vitamins W/ Minerals (Centrum Silver 50+Women), 1 TAB PO DAILY Nutritional Supplements (Osteo Advance), 1 TAB PO DAILY Polyethylene Glycol 3350 (Miralax), 17 GM PO DAILY Pregabalin (Lyrica), 200 MG PO BID Ropinirole (Requip), 0.5 MG PO BID Tapentadol Hcl (Nucynta Er), 1 TAB PO BID Warfarin Sod (Coumadin), 2.5 MG PO Q2D Warfarin Sodium (Coumadin), 2 MG PO Q2D Scheduled PRN Hydrocodone/Acetaminophen 7.5MG/325MG ([place] 7.5MG/325MG), 1 TAB PO DAILY PRN for Pain Promethazine (Phenergan ), 12.5 MG PO Q6H PRN for Nausea or Vomiting Physical Exam Vital Signs Date Time Temp Pulse Resp B/P (MAP) Pulse Ox O2 Delivery O2 Flow Rate FiO2 07/07/17 14:43 80 18 150/79 96 07/07/17 13:55 63 18 157/85 95 Room Air 07/07/17 12:34 62 18 142/61 94 Room Air 07/07/17 12:34 66 07/07/17 11:05 37.1 82 21 137/67 94 Room Air General: no distress Eyes: normal inspection, PERLL Respiratory: chest non tender, clear to auscultation, normal breath sounds, no respiratory distress, no accessory muscle use Cardiac: regular rate and rhythm, no rub or gallop,2/6 systolic murmur LUSB, R LE > L LE which patient states is baseline GI/: active bowel sounds, right upper quadrant abdominal tenderness, soft, non distended Extremities: normal range of motion, normal strength, non tender Neuro/Psych: alert and oriented x 3, normal mood and affect Skin: normal color, dry Diagnostics Laboratory Results Results Past 24 Hours Test 07/07/17 11:17 07/07/17 11:55 Range/Units White Blood Count 13.69 4.8-10.8 K/uL Red Blood Count 4.20 4.2-5.4 M/uL Hemoglobin 12.8 12.0-16.0 g/dL Hematocrit 38.7 37-47 % Mean Corpuscular Volume 92.1 80-100 fL Mean Corpuscular Hemoglobin 30.5 25-34 pg Mean Corpuscular Hemoglobin Concent 33.1 32-36 g/dl Platelet Count 193 130-400 K/uL Mean Platelet Volume 9.5 7.4-10.4 fL Neutrophils (%) (Auto) 79.8 % Lymphocytes (%) (Auto) 6.7 % Monocytes (%) (Auto) 13.1 % Eosinophils (%) (Auto) 0.1 % Basophils (%) (Auto) 0.1 % Neutrophils # (Auto) 10.91 1.4-6.5 K/uL Lymphocytes # (Auto) 0.92 1.2-3.4 K/uL Monocytes # (Auto) 1.80 0.11-0.59 K/uL Eosinophils # (Auto) 0.02 0-0.5 K/uL Basophils # (Auto) 0.01 0-0.2 K/uL RDW Standard Deviation 46.0 36.4-46.3 fL RDW Coefficient of Variation 13.7 11.5-14.5 % Immature Granulocyte % (Auto) 0.2 % Immature Granulocyte # (Auto) 0.03 0.00-0.02 K/uL Prothrombin Time 26.1 9.0-12.0 SECONDS Prothromb Time International Ratio 2.5 0.9-1.1 Activated Partial Thromboplast Time 37.0 21.0-31.0 SECONDS Partial Thromboplastin Ratio 1.4 Sodium Level 140 136-145 mmol/L Potassium Level 4.3 3.5-5.1 mmol/L Chloride Level 105 98-107 mmol/L Carbon Dioxide Level 28 21-32 mmol/L Anion Gap 7.0 3-11 mmol/L Blood Urea Nitrogen 16 7-18 mg/dl Creatinine 0.92 0.60-1.20 mg/dl Est Creatinine Clear Calc Drug Dose 58.6 ml/min Estimated GFR () 65.8 Estimated GFR (Non- 56.8 BUN/Creatinine Ratio 17.1 10-20 Random Glucose 98 70-99 mg/dl Calcium Level 8.6 8.5-10.1 mg/dl Magnesium Level 2.0 1.8-2.4 mg/dl Total Bilirubin 3.7 0.2-1 mg/dl Direct Bilirubin 2.6 0-0.2 mg/dl Aspartate Amino Transf (AST/SGOT) 247 15-37 U/L Alanine Aminotransferase (ALT/SGPT) 169 12-78 U/L Alkaline Phosphatase 205 45-117 U/L Total Protein 7.2 6.4-8.2 gm/dl Albumin 3.2 3.4-5.0 gm/dl Urine Color DK YELLOW Urine Appearance CLEAR CLEAR Urine pH 6.0 4.5-7.5 Urine Specific [place] 1.022 1.000-1.030 Urine Protein NEG NEG Urine Glucose (UA) NEG NEG Urine Ketones NEG NEG Urine Occult Blood TRACE NEG Urine Nitrite NEG Urine Bilirubin 2+ NEG Urine Urobilinogen NEG NEG Urine Leukocyte Esterase SMALL NEG Urine WBC (Auto) 1-5 0-5 /hpf Urine RBC (Auto) 10-30 0-4 /hpf Urine Hyaline Casts (Auto) 1-5 0-5 /lpf Urine Epithelial Cells (Auto) 10-20 0-5 /lpf Urine Bacteria (Auto) NEG NEG Diagnostic Radiology ABDOMINAL ULTRASOUND, RIGHT UPPER QUADRANT HISTORY: vomiting, elevated LFTs. COMPARISON: CT of the abdomen and pelvis July 07, 2017. FINDINGS: This exam is moderately compromised by suboptimal penetration. The common bile duct is dilated, measuring 1.1 cm in caliber. The 1.2 x 0.8 cm calcified intraluminal abnormality within the distal common bile duct shown on CT is not evident on this exam, likely due to technique. This is consistent with choledocholithiasis. The pancreas is obscured by overlying bowel gas. The gallbladder is surgically absent. There is no right hydronephrosis. IMPRESSION: Extrahepatic biliary ductal dilatation with common bile duct measuring 1.1 cm in caliber. The 1.2 x 0.8 cm common bile duct calculus shown on CT performed earlier today is not evident on this exam due to technique. Electronically signed by: Pablo Ramirez M.D. 07/07/2017 1:[address] SCAN OF THE ABDOMEN AND PELVIS WITHOUT CONTRAST CLINICAL HISTORY: hematuria, vomiting COMPARISON STUDY: 08/31/2016 TECHNIQUE: CT scan of the abdomen and pelvis was performed from the lung bases to the proximal femurs. Images are reviewed in the axial, sagittal, and coronal planes. IV contrast was not administered for this examination. A dose lowering technique was utilized adhering to the principles of ALARA. CT DOSE: 1899.59 mGy.cm FINDINGS: Lower chest: There are bibasilar atelectatic changes. There is a hiatal hernia. The heart is enlarged. Liver: The unenhanced liver is normal in size, contour, and attenuation. There is no intrahepatic biliary ductal dilatation. Gallbladder: Not visualized and presumed surgically absent. There is a hyperdense focus within distal common bile duct. In retrospect this was present on the prior study. This could represent a chronic common bile duct calculus. Spleen: Normal in size and attenuation. Pancreas: Unremarkable. Adrenal glands: Unremarkable. Kidneys: No renal, ureteral, or bladder calculi are visualized. Bowel: There are no transition zone to indicate bowel obstruction. There is colonic diverticulosis. There are no acute peridiverticular inflammatory changes. The appendix is not visualized. There is no evidence of acute appendicitis. Peritoneum: There is no intraperitoneal free air or abdominal ascites. Vasculature: The abdominal aorta is normal in course and caliber. An IVC filter is again visualized. Several of the struts project beyond the IVC lumen. This remains unchanged. Adenopathy: None. Pelvic viscera: The bladder, and pelvic viscera are unremarkable. Skeletal structures: There are postsurgical changes of a total right hip arthroplasty. There are advanced arthritic changes within the left hip. IMPRESSION: 1. No evidence of bowel obstruction. No evidence of free air 2. Diverticulosis. No evidence of acute diverticulitis 3. Surgically absent appendix 4. No renal, ureteral, or bladder calculi identified 5. Calcified lesion at the level of the distal common bile duct. In retrospect this was present on the prior study. A chronic nonobstructing common bile duct calculus should be considered in the differential of this lesion. Electronically signed by: Samuel Cristina M.D. 07/07/2017 12:23 PM CHEST ONE VIEW PORTABLE CLINICAL HISTORY: vomiting HEMATURIA COMPARISON STUDY: 7017 FINDINGS: The heart is enlarged. There is a left subclavian dual-chamber central venous pacemaker. There is a right cardiophrenic angle opacity, likely representing an enlarged right atrium. There is slight elevation of the interstitium. An element of mild portal vascular congestion cannot be excluded. There is no lobar consolidation. There are no pleural effusions. There are advanced arthritic changes present within the left shoulders. There are postsurgical changes of a right shoulder arthroplasty..[ IMPRESSION: Cardiomegaly and possible mild pulmonary vascular congestion. No evidence of focal pulmonary consolidation. Electronically signed by: Samuel Cristina M.D. 07/07/2017 12:00 PM EKG Atrial-paced rhythm with prolonged AV conduction Abnormal ECG When compared with ECG of 31-AUG-2016 10:12, Nonspecific T wave abnormality, improved in Inferior leads Impression Assessment and Plan Ms. Donahue is an 87 year old woman here for obstructing biliary stone Bile duct dilation to 1.1cm with stone as seen on US - ERCP tomorrow with Dr. Montero - Reverse Coumadin with 10 mg vitamin k po - repeat LFTs and INR am, LFTs elevated on admission - cbc, prp am - IV zosyn, gentle IVF - clear liquid diet - CT abdomen showed a hyperdense focus within distal common bile duct, possibly chronic common bile duct calculus. Hx DVT - Patient has IVC filter - Hold warfarin and reverse with vitamin K as above - SCDs Hx Depression - continue buspirone, duloxetine Hx chronic back pain, neuropathy - continue home duloxetine, Nucynta, pregabalin, Tillman Restless leg - continue ropinirole Advanced Directives Existing Living Will: No Existing Power of [employer] Certified Network Associate: Yes (Adrienne- patient's children) Existing Health Care Proxy: No Resuscitation Status full code - no extended life support VTE Prophylaxis Will order VTE Prophylaxis: Yes Reason for no VTE drug order: Contraindicated (procedure in the morning ) Reviewed: Pt Seen/Exam by Me History Pt is doing fine at this time. No chest pain or SOB. No further hematuria. Agree with HPI/ROS as noted by RATINGS ANALYST. General Appearance: WD/WN, no apparent distress Eye Exam: bilateral eye normal inspection, bilateral eye other (nml sclera) Respiratory: lungs clear, normal breath sounds, no respiratory distress Cardiovascular: regular rate, rhythm, no edema Gastrointestinal: non tender (to light palpation), soft Extremities: non-tender, no pedal edema Neurologic/Psychiatric: alert, oriented x 3 Skin Characteristics: normal color, warm/dry Assessment/Plan Agree with plan as outlined above Dilated CBD, likely ERCP tomorrow with GI Monitor LFTs Reverse coumadin for procedure
[2017-07-07] MEDS ORDERED: HYDROCODONE/ACETAMINOPHEN 7.5/325MG TAB PO PRN (17:45)
[2017-07-07] MEDS ORDERED: PROMETHAZINE HCL 25 MG TAB PO PRN (17:45)
[2017-07-07 19:00] VITALS: BP 128/59; PULSE 71; TEMP 37.2; O2SAT 93
[2017-07-07] MEDS ORDERED: PIPERACILL/TAZOBAC IV 4.5 GM in D5W 100 ML IV ONE (19:30)
[2017-07-07] MEDS: PREGABALIN 100 MG CAP PO SCH (20:02)
[2017-07-07] MEDS: SODIUM CHLORIDE 0.9% 1000ML 1,000 ML IV SCH (20:03)
[2017-07-07] MEDS: ROPINIROLE HCL 1 MG TAB PO SCH (20:58)
[2017-07-07] MEDS: TAPENTADOL ER 50 MG TABCR PO SCH (20:58)
[2017-07-07] MEDS ORDERED: CEROVITE ADV FORMULA TAB PO SCH (21:00)
[2017-07-07] MEDS ORDERED: NURSING VERBAL MED ORDER ONE (21:15)
[2017-07-07] MEDS ORDERED: HYDROCODONE/ACETAMINOPHEN 7.5/325MG TAB PO ONE (23:06)
[2017-07-07 23:30] VITALS: O2SAT 93
[2017-07-08] VITALS (22 sets, daily range): BP systolic 136–175; BP diastolic 61–82; PULSE 60–72; TEMP 36.5–37.2; O2SAT 92–97
[2017-07-08] MEDS: PIPERACILL/TAZOBAC IV 4.5 GM in DEXTROSE 5% 100ML 100 ML IV SCH ×4 (00:06→23:34)
[2017-07-08 05:25] LABS: HEMOGLOBIN 12.6 g/dL (12.0-16.0); MEAN CELL VOLUME 92.7 fL (80-100); MEAN CORPUSCULAR HEMOGLOBIN 30.7 pg (25-34); MEAN CORPUSCULAR HGB CONC 33.2 g/dl (32-36); MEAN PLATELET VOLUME 9.8 fL (7.4-10.4); PLATELET COUNT 179 K/uL (130-400); RED CELL DISTRIBUTION WIDTH SD 47.5 fL (36.4-46.3); WHITE BLOOD COUNT 9.53 K/uL (4.8-10.8)
[2017-07-08 05:37] LABS: INR 2.2 (0.9-1.1)
[2017-07-08 05:53] LABS: CALCIUM 8.5 mg/dl (8.5-10.1); CREATININE 0.98 mg/dl (0.60-1.20); POTASSIUM 3.7 mmol/L (3.5-5.1); TOTAL PROTEIN 7.3 gm/dl (6.4-8.2)
[2017-07-08] MEDS ORDERED: PHYTONADIONE INJ 5 MG in SODIUM CHLORIDE 0.9% 50ML 50 ML IV ONE (08:15)
[2017-07-08] MEDS: SODIUM CHLORIDE 0.9% 1000ML 1,000 ML IV SCH ×2 (08:38→23:31)
[2017-07-08] MEDS: TAPENTADOL ER 50 MG TABCR PO SCH ×2 (08:38→21:20)
[2017-07-08] MEDS: PREGABALIN 100 MG CAP PO SCH ×2 (08:39→21:19)
[2017-07-08] MEDS: HYDROCODONE/ACETAMINOPHEN 7.5/325MG TAB PO SCH ×4 (08:39→21:19)
[2017-07-08] MEDS: CEROVITE ADV FORMULA TAB PO SCH (08:39)
[2017-07-08] MEDS: CHOLECALCIFEROL 1000 INTER.UNIT TAB PO SCH (08:40)
[2017-07-08] MEDS: MULTIVITAMIN TAB PO SCH (08:40)
[2017-07-08] MEDS: ASCORBIC ACID 500 MG TAB PO SCH (08:40)
[2017-07-08] MEDS: POLYETHYLENE (MIRALAX) 17 GM PACK PO SCH (08:40)
[2017-07-08] MEDS: CYANOCOBALAMIN 500 MCG TAB (VIT B-12) PO SCH (08:40)
[2017-07-08] MEDS: DULOXETINE (CYMBALTA) 30 MG CAP PO SCH (08:41)
[2017-07-08] MEDS: PANTOprazole SOD 40 MG TAB PO SCH (08:41)
[2017-07-08] MEDS: LISINOPRIL 10 MG TAB PO SCH (08:41)
[2017-07-08] MEDS: CETIRIZINE HCL 10 MG TAB PO SCH (08:42)
[2017-07-08] MEDS: ROPINIROLE HCL 1 MG TAB PO SCH ×2 (08:42→21:20)
[2017-07-08] MEDS: METOPROLOL SUCC 25MG EXT REL TAB PO SCH (08:42)
[2017-07-08 13:49] LABS: INR 1.7 (0.9-1.1)
--- NOTE | 2017-07-08 14:10 | Hospitalist Progress Note ---
Hospitalist Progress Note Date of Service July 08, 2017. Subjective Pt evaluation today including: conversation w/ patient, physical exam, chart review, lab review, review of studies, review of inpatient medication list Patient reports feeling well this AM. States she still has some RLE pain that she relates to her neuropathy. She is not sure if she is still having hematuria. Is due for ERCP later today as there may be a CBD stone Awaiting repeat INR as further INR reversal was implemented. LFTs are improving Constitutional: No fever, No chills Respiratory: No cough, No shortness of breath Cardiovascular: No chest pain Abdomen: No pain, No nausea, No vomiting, No diarrhea, No constipation Female : No dysuria, No hematuria (not sure if it is still present) Neurologic: + numbness/tingling (chronic - b/l lower extremities) Heme: No abnormal bleeding/bruising Medications Current Inpatient Medications Medications (Trade) Dose Ordered Sig/Ana Cristina Route Start Time Stop Time Status Last Admin Dose Admin Piperacillin Sod/ Tazobactam Sod 4.5 gm/Dextrose 120 ml @ 30 mls/hr Q8H IV 07/08/17 00:00 07/18/17 00:00 07/08/17 09:36 30 MLS/HR Miscellaneous Information (Consult) 1 ea UD PRN N/A 07/07/17 16:00 08/06/17 15:59 Acetaminophen (Tylenol Tab) 650 mg Q4H PRN PO 07/07/17 17:30 08/06/17 17:29 Ondansetron HCl (Zofran Inj) 4 mg Q6H PRN IV 07/07/17 17:30 08/06/17 17:29 Sodium Chloride 1,000 ml @ 80 mls/hr [id number] IV 07/07/17 19:30 08/06/17 19:29 07/08/17 08:38 80 MLS/HR Cetirizine HCl (zyrTEC TAB) 10 mg DAILY PO 07/08/17 09:00 08/07/17 08:59 07/08/17 08:42 10 MG Cholecalciferol (Vitamin D Tab) 1,000 inter.unit DAILY PO 07/08/17 09:00 08/07/17 08:59 Duloxetine HCl (Cymbalta Cap) 90 mg DAILY PO 07/08/17 09:00 08/07/17 08:59 07/08/17 08:41 90 MG Lisinopril (Zestril Tab) 10 mg DAILY PO 07/08/17 09:00 08/07/17 08:59 07/08/17 08:41 10 MG Metoprolol Succinate (Toprol Xl Tab) 25 mg DAILY PO 07/08/17 09:00 08/07/17 08:59 07/08/17 08:42 25 MG Multivitamins (Multivitamin Tab) 1 tab DAILY PO 07/08/17 09:00 08/07/17 08:59 Multivitamins/ Minerals (Multivitamin W/ Minerals Tab) 1 tab DAILY PO 07/08/17 09:00 08/07/17 08:59 Pregabalin (Lyrica Cap) 200 mg BID PO 07/07/17 21:00 08/06/17 20:59 07/08/17 08:39 200 MG Promethazine HCl (Phenergan Tab) 12.5 mg Q6H PRN PO 07/07/17 17:45 08/06/17 17:44 Ropinirole HCl (Requip Tab) 0.5 mg BID PO 07/07/17 21:00 08/06/17 20:59 07/08/17 08:42 0.5 MG Ascorbic Acid (Vitamin C Tab) 500 mg DAILY PO 07/08/17 09:00 08/07/17 08:59 Cyanocobalamin (Vitamin B-12 Tab) 1,000 mcg DAILY PO 07/08/17 09:00 08/07/17 08:59 Pantoprazole Sodium (Protonix Tab) 40 mg DAILY PO 07/08/17 09:00 08/07/17 08:59 07/08/17 08:41 40 MG Polyethylene (Miralax Powder Packet) 17 gm DAILY PO 07/08/17 09:00 08/07/17 08:59 Tapentadol (Nucynta Er Tab) 100 mg Q12 PO 07/07/17 21:00 08/06/17 20:59 07/08/17 08:38 100 MG Buspirone HCl (Buspar Tab) 5 mg HS PO 07/07/17 21:00 08/06/17 20:59 07/07/17 21:00 5 MG Acetaminophen/ Hydrocodone Bitart ([place] 7.5/325 Tab) 1 tab QID PO 07/08/17 09:00 07/22/17 08:59 07/08/17 08:39 1 TAB Objective Vital Signs Date Time Temp Pulse Resp B/P (MAP) Pulse Ox O2 Delivery O2 Flow Rate FiO2 07/08/17 13:20 36.6 68 18 151/74 (99) 93 Room Air 07/08/17 12:20 36.6 64 18 164/75 (104) 95 Room Air 07/08/17 11:50 36.7 72 16 145/66 (92) 95 Room Air 07/08/17 11:35 36.7 63 18 162/82 (108) 93 Room Air 07/08/17 11:16 36.9 64 20 151/62 92 0.0 07/08/17 10:00 37.2 60 16 147/64 (91) 94 Room Air 07/08/17 09:30 37.1 60 16 166/76 (106) 93 Room Air 07/08/17 09:00 36.8 62 20 150/74 (99) 93 Room Air 07/08/17 09:00 95 Room Air 07/08/17 08:00 Room Air 07/08/17 07:33 37.1 67 18 161/81 (107) 97 Room Air 07/07/17 23:30 93 Room Air 07/07/17 19:00 37.2 71 18 128/59 (82) 93 Room Air 07/07/17 18:15 Room Air 07/07/17 18:01 62 20 111/59 94 Room Air 07/07/17 17:55 63 18 94 07/07/17 17:01 60 20 140/67 94 07/07/17 16:55 61 94 07/07/17 16:36 37.1 18 150/79 07/07/17 16:01 62 20 129/52 95 Room Air 07/07/17 15:55 62 95 07/07/17 15:01 139/60 07/07/17 14:55 63 19 07/07/17 14:43 80 18 150/79 96 07/07/17 14:41 150/79 07/07/17 14:01 158/89 07/07/17 13:55 63 18 157/85 95 Room Air 07/07/17 13:55 64 20 97 07/07/17 13:54 157/85 Physical Exam General Appearance: WD/WN, no apparent distress Eyes: sclerae normal ENT: hearing grossly normal Neck: supple, no JVD, trachea midline Respiratory/Chest: lungs clear, normal breath sounds, no respiratory distress, no accessory muscle use Cardiovascular: regular rate, rhythm, no murmur, + systolic murmur Abdomen: normal bowel sounds, non tender, soft Extremities: no calf tenderness Neurologic/Psychiatric: alert, oriented x 3 Skin: normal color, warm/dry Laboratory Results Last 24 Hours Test 07/08/17 05:07 07/08/17 13:20 White Blood Count 9.53 K/uL Red Blood Count 4.10 M/uL Hemoglobin 12.6 g/dL Hematocrit 38.0 % Mean Corpuscular Volume 92.7 fL Mean Corpuscular Hemoglobin 30.7 pg Mean Corpuscular Hemoglobin Concent 33.2 g/dl RDW Standard Deviation 47.5 fL RDW Coefficient of Variation 14.0 % Platelet Count 179 K/uL Mean Platelet Volume 9.8 fL Prothrombin Time 22.7 SECONDS Prothromb Time International Ratio 2.2 Sodium Level 139 mmol/L Potassium Level 3.7 mmol/L Chloride Level 105 mmol/L Carbon Dioxide Level 27 mmol/L Anion Gap 7.0 mmol/L Blood Urea Nitrogen 13 mg/dl Creatinine 0.98 mg/dl Est Creatinine Clear Calc Drug Dose 55.0 ml/min Estimated GFR () 61.0 Estimated GFR (Non- 52.6 BUN/Creatinine Ratio 13.3 Random Glucose 98 mg/dl Calcium Level 8.5 mg/dl Total Bilirubin 6.0 mg/dl Direct Bilirubin 4.0 mg/dl Aspartate Amino Transf (AST/SGOT) 133 U/L Alanine Aminotransferase (ALT/SGPT) 118 U/L Alkaline Phosphatase 206 U/L Total Protein 7.3 gm/dl Albumin 3.0 gm/dl Assessment and Plan Ms. Donahue is an 87 year old woman here for obstructing biliary stone Bile Duct Dilation with CBD Stone: - Planning on ERCP today for further evaluation - Awaiting repeat INR check as further Coumadin reversal given this AM - LFTs trending down - Currently on Zosyn H/O DVT: - Patient states she has had approx. 3 DVTs and thinks the plan is life-long anticoagulation - INR reversed as above; Maintain SCDs and ambulation when able to prevent further development. Pending ERCP and if need for sphincterotomy? will ultimately get her back on Coumadin when deemed safe Hematuria: - Unsure of etiology - UA not suggestive of infection and no other symptoms - Will monitor - no hematuria noted in urine today per staff Depression: STABLE - Buspar 5 mg HS/Cymbalta 90 mg daily HTN: - Lisinopril 10 mg daily; Toprol XL 25 mg daily Chronic Back Pain/Neuropathy/RLS: Lyrica 200 mg BID; Requip 0.5 mg BID; Nucynta 100 mg BID DVT Prophylaxis: SCDs Code Status: FULL RESUSCITATION Disposition: Await ERCP Continued [facility] stay due to: other (ERCP) Discharge planning: home
[2017-07-08] MEDS ORDERED: PHENYLEPHRINE 100MCG/ML 5ML SYR IV PRN (15:30)
[2017-07-08] MEDS ORDERED: HYDROmorphone INJ 0.5 MG/0.5 ML SYR IV PRN (15:30)
[2017-07-08] MEDS ORDERED: FENTANYL CITRATE INJ 50 MCG/1 ML 2 ML VIAL IV PRN (15:30)
[2017-07-08] MEDS ORDERED: ATROPINE SULFATE 0.1 MG/ML 5ML SYR IV PRN (15:30)
[2017-07-08] MEDS ORDERED: ONDANSETRON INJ 2 MG/ML 2 ML VIAL IV PRN (15:30)
[2017-07-08] MEDS ORDERED: EpHEDrine SULFATE INJ 50 MG/ML AMP IV PRN (15:30)
--- NOTE | 2017-07-08 15:31 | History & Physical Bridge Note ---
H&P Re-Evaluation Bridge Note: I have examined the patient, reviewed the History & Physical and in the interval since the performance of the History & Physical I have noted the following changes of clinical significance: No changes noted
[2017-07-08] MEDS ORDERED: FENTANYL CITRATE INJ 50 MCG/1 ML 2 ML VIAL ONE ×2 (15:45→16:35)
[2017-07-08] MEDS ORDERED: LIDOCAINE HCL 2% 2 ML VIAL (20MG/ML) ONE (15:45)
[2017-07-08] MEDS ORDERED: PROPOFOL IV EMULSION 10 MG/ML 20 ML VIAL ONE ×2 (15:45→17:41)
[2017-07-08] MEDS ORDERED: INDOMETHACIN 50 MG SUPP ONE (15:49)
[2017-07-08] MEDS ORDERED: INDOMETHACIN 50 MG SUPP PR SCH (16:00)
[2017-07-08] MEDS ORDERED: SUCCINYLCHOLINE CHLORIDE 20 MG/ML 10 ML VIAL IV ONE (16:24)
--- NOTE | 2017-07-08 17:32 | [facility] Operative Report ---
Operative Report Operative Date July 08, 2017. Pre-Operative Diagnosis choledocholithiasis Post-Operative Diagnosis CBD stones Procedure(s) Performed Endoscopic Retrograde Cholangiopancreatogram with sphincterotomy and stone removal, Esophagogastroduodenoscopy Surgeon Dr. Montero Estimated Blood Loss 0cc Findings Dilated CBD with multiple stones, sphincterotomy done and stones removed Specimens all specimens handled by endo staff Anesthesia Type General I attest to the content of the Intraoperative Record and any orders documented therein. Any exceptions are noted below.
[2017-07-08] MEDS ORDERED: LABETALOL HCL IV 5 MG/ML 20ML ONE (17:36)
[2017-07-08] MEDS ORDERED: ONDANSETRON INJ 2 MG/ML 2 ML VIAL ONE (17:41)
[2017-07-08] MEDS ORDERED: NURSING VERBAL MED ORDER ONE (18:00)
--- NOTE | 2017-07-08 18:07 | DIAGNOSTIC IMAGING REPORT ---
ERCP BILIARY DUCTAL CLINICAL HISTORY: 87 years-old Female presenting with ERCP. TECHNIQUE: Fluoroscopy was provided for endoscopic retrograde cholangiopancreatography. 12 fluoroscopic image(s) recorded. COMPARISON: CT and ultrasound performed the previous day. FINDINGS: Peritoneal spillage: No evidence of peritoneal spillage of contrast. Extrahepatic bile ducts: An endoscope projects over the duodenum. A catheter was introduced into the common bile duct. A common bile duct calculus is evident. The common bile duct is mildly dilated. This may in part represent a reservoir effect in the post cholecystectomy state. Subsequently, a balloon was used to remove the calculus. Contrast extends into the small bowel. Intrahepatic bile ducts: Mild intrahepatic biliary ductal prominence. Other: IVC filter noted. Fluoroscopy dosage (mGy): 97.25. Fluoroscopy time: 262 seconds. Number of fluoroscopic spot images: 0. IMPRESSION: Removal of choledocholithiasis. Intrahepatic and extrahepatic biliary ductal dilatation likely secondary to choledocholithiasis and in part due to a reservoir effect in the post cholecystectomy state Electronically signed by: hSay Frausto M.D. 07/08/2017 6:06 PM Dictated Date/Time: 07/08/2017 6:02 PM
--- NOTE | 2017-07-08 18:11 | GI REPORT ---
Patient Name: Heather Donahue Procedure Date: 07/08/2017 4:01 PM Date of : 1930 Admit Type: Inpatient Age: 87 Gender: Female Attending MD: Aliyah Montero MD Procedure: ERCP Providers: Aliyah Montero MD Referring MD: Mauricio Theodore Indications: Abnormal abdominal CT, For therapy of bile duct stone(s), Suspected ascending cholangitis, Jaundice Medicines: General Anesthesia Complications: No immediate complications. Estimated Blood Loss: Estimated blood loss: none. Procedure: Pre-Anesthesia Assessment: - Prior to the procedure, a History and Physical was performed, and patient medications and allergies were reviewed. The patient is competent. The risks and benefits of the procedure and the sedation options and risks were discussed with the patient. All questions were answered and informed consent was obtained. Patient identification and proposed procedure were verified by the physician and the nurse in the procedure room. Mental Status Examination: alert and oriented. Airway Examination: normal oropharyngeal airway and neck mobility. Respiratory Examination: clear to auscultation. CV Examination: normal. ASA Grade Assessment: IV - A patient with severe systemic disease that is a constant threat to life. After reviewing the risks and benefits, the patient was deemed in satisfactory condition to undergo the procedure. The anesthesia plan was to use general anesthesia. Immediately prior to administration of medications, the patient was re-assessed for adequacy to receive sedatives. The heart rate, respiratory rate, oxygen saturations, blood pressure, adequacy of pulmonary ventilation, and response to care were monitored throughout the procedure. The physical status of the patient was re-assessed after the procedure. After obtaining informed consent, the scope was passed under direct vision. Throughout the procedure, the patient's blood pressure, pulse, and oxygen saturations were monitored continuously. The scope was introduced through the mouth, and advanced to the duodenum and used to inject contrast into the bile duct. The ERCP was accomplished without difficulty. The patient tolerated the procedure well. Findings: A radius grinder film of the abdomen was obtained. Surgical clips, consistent with a previous cholecystectomy, were seen in the area of the right upper quadrant of the abdomen. The esophagus was successfully intubated under direct vision. The scope was advanced to a normal major papilla in the descending duodenum without detailed examination of the pharynx, larynx and associated structures, and upper GI tract. The upper GI tract was grossly normal. The major papilla was on the rim of a diverticulum. A 0.035 inch straight standard wire (Acrobat 2) was passed into the biliary tree. The Fusion OMNI sphincterotome was passed over the guidewire and the bile duct was then deeply cannulated. Contrast was injected. I personally interpreted the bile duct images. Ductal flow of contrast was adequate. Image quality was adequate. Contrast extended to the main bile duct. The main bile duct was markedly dilated. The largest diameter was 10-12 mm. The lower third of the main duct contained filling defect(s) thought to be a stone. Biliary sphincterotomy was made with a monofilament traction (standard) sphincterotome using ERBE electrocautery. There was no post-sphincterotomy bleeding. Dilation of the common bile duct with a 10 mm balloon dilator was successful. To discover objects, the biliary tree was swept with a 12 mm balloon starting at the bifurcation. Sludge was swept from the duct. Many stones were removed. No stones remained. Indomethacin 100 mg was given via suppository to decrease the risk of post-ERCP pancreatitis (PEP). The total fluoroscopy exposure time was 4 minutes and 15 seconds. Pancreatic duct was not cannulated nor injected or opacified. Impression: - The major papilla was on the rim of a diverticulum. - The entire main bile duct was markedly dilated. - A filling defect consistent with a stone was seen on the cholangiogram. - Choledocholithiasis was found. Complete removal was accomplished by biliary sphincterotomy, dilation and balloon extraction. Recommendation: - Return patient to [facility] for ongoing care. - Clear liquid diet today. - Monitor H/H, INR and LFTs. - Continue ABx, can change to PO Ciprofloxacin upon discharge to complete a 10 days course. - Do not resume Coumadin (warfarin) until cleared by GI. Aliyah Montero MD 07/08/2017 6:11:31 PM This report has been signed electronically. Note Initiated On: 07/08/2017 4:01 PM Number of Addenda: 0 I attest to the content of the Intraoperative Record and orders documented therein, exceptions below {[id number]}
[2017-07-08] MEDS ORDERED: PROMETHAZINE HCL INJ 12.5 MG in SODIUM CHLORIDE 0.9% 50ML 50 ML IV ONE (18:15)
[2017-07-08] MEDS ORDERED: PROMETHAZINE HCL INJ 12.5 MG in SODIUM CHLORIDE 0.9% 50ML 50 ML IV PRN (18:15)
--- NOTE | 2017-07-08 18:15 | GI REPORT ---
Patient Name: Heather Donahue Procedure Date: 07/08/2017 6:11 PM Date of : 1930 Admit Type: Inpatient Age: 87 Gender: Female Attending MD: Aliyah Montero MD Procedure: Upper GI endoscopy Providers: Aliyah Montero MD Referring MD: Referred Harshad, Mauricio Theodore Indications: Abnormal CT of the GI tract Medicines: General Anesthesia Complications: No immediate complications. Estimated Blood Loss: Estimated blood loss: none. Procedure: Pre-Anesthesia Assessment: - Prior to the procedure, a History and Physical was performed, and patient medications and allergies were reviewed. The patient is competent. The risks and benefits of the procedure and the sedation options and risks were discussed with the patient. All questions were answered and informed consent was obtained. Patient identification and proposed procedure were verified by the physician and the nurse in the procedure room. Mental Status Examination: alert and oriented. Airway Examination: normal oropharyngeal airway and neck mobility. Respiratory Examination: clear to auscultation. CV Examination: normal. ASA Grade Assessment: IV - A patient with severe systemic disease that is a constant threat to life. After reviewing the risks and benefits, the patient was deemed in satisfactory condition to undergo the procedure. The anesthesia plan was to use general anesthesia. Immediately prior to administration of medications, the patient was re-assessed for adequacy to receive sedatives. The heart rate, respiratory rate, oxygen saturations, blood pressure, adequacy of pulmonary ventilation, and response to care were monitored throughout the procedure. The physical status of the patient was re-assessed after the procedure. After obtaining informed consent, the endoscope was passed under direct vision. Throughout the procedure, the patient's blood pressure, pulse, and oxygen saturations were monitored continuously. The Scope was introduced through the mouth, and advanced to the second part of duodenum. The upper GI endoscopy was accomplished without difficulty. The patient tolerated the procedure well. Findings: The examined esophagus was normal. A large hiatal hernia was present. The duodenal bulb and second portion of the duodenum were normal. Impression: - Normal esophagus. - Large hiatal hernia. - Normal duodenal bulb and second portion of the duodenum. - No specimens collected. Recommendation: - Perform an ERCP today. Aliyah Montero MD 07/08/2017 6:14:02 PM Note Initiated On: 07/08/2017 6:11 PM Number of Addenda: 0 I attest to the content of the Intraoperative Record and orders documented therein, exceptions below {[id number]}
--- NOTE | 2017-07-08 18:49 | Anesthesiology Progress Note ---
Anesthesia Post Op Note Date & Time July 08, 2017 at 18:49 Vital Signs Pain Intensity: 0 Vital Signs Past 12 Hours Date Time Temp Pulse Resp B/P (MAP) Pulse Ox O2 Delivery O2 Flow Rate FiO2 07/08/17 18:33 36.8 07/08/17 18:26 69 22 159/66 07/08/17 18:26 22 07/08/17 18:21 65 22 07/08/17 18:21 64 22 165/56 96 07/08/17 18:16 57 21 07/08/17 18:16 71 21 164/66 95 07/08/17 18:11 64 18 150/64 95 07/08/17 18:11 63 18 07/08/17 18:10 66 17 07/08/17 18:10 66 17 95 07/08/17 18:09 158/66 07/08/17 18:05 66 17 94 07/08/17 18:05 67 17 07/08/17 18:01 142/63 07/08/17 18:00 65 25 96 07/08/17 18:00 65 25 07/08/17 17:59 63 16 07/08/17 17:59 65 16 96 07/08/17 17:56 134/53 07/08/17 17:54 66 22 07/08/17 17:54 66 22 95 07/08/17 17:51 130/64 07/08/17 17:49 67 25 07/08/17 17:49 69 25 100 07/08/17 17:46 144/74 07/08/17 17:45 140/59 07/08/17 17:44 36.3 68 16 140/59 98 Oxymask 10 07/08/17 15:35 36.7 64 20 175/76 95 07/08/17 15:15 Room Air 07/08/17 15:05 36.8 63 18 151/72 94 07/08/17 14:35 36.9 62 18 148/81 93 07/08/17 14:14 36.7 65 18 168/79 (108) 94 07/08/17 14:00 36.7 65 18 169/70 (103) 07/08/17 13:58 36.7 65 18 169/70 07/08/17 13:20 36.6 68 18 151/74 (99) 93 Room Air 07/08/17 12:20 36.6 64 18 164/75 (104) 95 Room Air 07/08/17 11:50 36.7 72 16 145/66 (92) 95 Room Air 07/08/17 11:35 36.7 63 18 162/82 (108) 93 Room Air 07/08/17 11:16 36.9 64 20 151/62 92 0.0 07/08/17 10:00 37.2 60 16 147/64 (91) 94 Room Air 07/08/17 09:30 37.1 60 16 166/76 (106) 93 Room Air 07/08/17 09:00 36.8 62 20 150/74 (99) 93 Room Air 07/08/17 09:00 95 Room Air 07/08/17 08:00 Room Air 07/08/17 07:33 37.1 67 18 161/81 (107) 97 Room Air Notes Mental Status: alert / awake / arousable, participated in evaluation Pt Amnestic to Procedure: Yes Nausea / Vomiting: adequately controlled Pain: adequately controlled Airway Patency, RR, SpO2: stable & adequate BP & HR: stable & adequate Hydration State: stable & adequate Anesthetic Complications: no major complications apparent
[2017-07-08 21:10] LABS: INR 1.4 (0.9-1.1)
[2017-07-09 02:43] VITALS: BP 124/72; PULSE 60; TEMP 36.8; O2SAT 92
[2017-07-09 07:23] LABS: HEMATOCRIT 34.6 % (37-47); HEMOGLOBIN 11.4 g/dL (12.0-16.0); MEAN CELL VOLUME 92.3 fL (80-100); MEAN CORPUSCULAR HEMOGLOBIN 30.4 pg (25-34); MEAN CORPUSCULAR HGB CONC 32.9 g/dl (32-36); MEAN PLATELET VOLUME 9.8 fL (7.4-10.4); PLATELET COUNT 149 K/uL (130-400); RED CELL DISTRIBUTION WIDTH CV 14.1 % (11.5-14.5); RED CELL DISTRIBUTION WIDTH SD 47.8 fL (36.4-46.3)
[2017-07-09 07:29] LABS: INR 1.2 (0.9-1.1)
[2017-07-09 07:35] VITALS: BP 134/81; PULSE 64; TEMP 36.5; O2SAT 92
--- NOTE | 2017-07-09 07:49 | Anesthesiology Progress Note ---
Anesthesia Post Op Note Date & Time July 09, 2017 at 07:49 Vital Signs Vital Signs Past 12 Hours Date Time Temp Pulse Resp B/P (MAP) Pulse Ox O2 Delivery O2 Flow Rate FiO2 07/09/17 07:35 36.5 64 16 134/81 (98) 92 Room Air 07/09/17 02:43 36.8 60 15 124/72 (89) 92 Room Air 07/08/17 23:40 92 Room Air 07/08/17 22:52 36.6 61 15 136/61 (86) 92 Room Air 07/08/17 22:06 36.6 67 18 155/64 (94) 95 Room Air 07/08/17 21:10 36.5 61 16 148/72 (97) 95 Room Air 07/08/17 20:08 36.6 63 18 163/64 (97) 92 Room Air Notes Mental Status: alert / awake / arousable, participated in evaluation Pt Amnestic to Procedure: Yes Nausea / Vomiting: adequately controlled Pain: adequately controlled Airway Patency, RR, SpO2: stable & adequate BP & HR: stable & adequate Hydration State: stable & adequate Anesthetic Complications: no major complications apparent
[2017-07-09 07:55] LABS: ALBUMIN 2.5 gm/dl (3.4-5.0); CALCIUM 8.3 mg/dl (8.5-10.1); CREATININE 1.07 mg/dl (0.60-1.20); POTASSIUM 3.6 mmol/L (3.5-5.1)
[2017-07-09 08:02] LABS: TOTAL PROTEIN 6.4 gm/dl (6.4-8.2)
[2017-07-09 09:01] VITALS: O2SAT 92
[2017-07-09] MEDS: PREGABALIN 100 MG CAP PO SCH ×2 (09:31→20:58)
[2017-07-09] MEDS: SODIUM CHLORIDE 0.9% 1000ML 1,000 ML IV SCH (09:31)
[2017-07-09] MEDS: PIPERACILL/TAZOBAC IV 4.5 GM in DEXTROSE 5% 100ML 100 ML IV SCH (09:31)
[2017-07-09] MEDS: HYDROCODONE/ACETAMINOPHEN 7.5/325MG TAB PO SCH ×4 (09:32→20:59)
[2017-07-09] MEDS: CETIRIZINE HCL 10 MG TAB PO SCH (09:32)
[2017-07-09] MEDS: DULOXETINE (CYMBALTA) 30 MG CAP PO SCH (09:32)
[2017-07-09] MEDS: CHOLECALCIFEROL 1000 INTER.UNIT TAB PO SCH (09:32)
[2017-07-09] MEDS: METOPROLOL SUCC 25MG EXT REL TAB PO SCH (09:33)
[2017-07-09] MEDS: ASCORBIC ACID 500 MG TAB PO SCH (09:33)
[2017-07-09] MEDS: PANTOprazole SOD 40 MG TAB PO SCH (09:33)
[2017-07-09] MEDS: CYANOCOBALAMIN 500 MCG TAB (VIT B-12) PO SCH (09:33)
[2017-07-09] MEDS: CEROVITE ADV FORMULA TAB PO SCH (09:33)
[2017-07-09] MEDS: MULTIVITAMIN TAB PO SCH (09:33)
[2017-07-09] MEDS: ROPINIROLE HCL 1 MG TAB PO SCH ×2 (09:34→20:57)
[2017-07-09] MEDS: POLYETHYLENE (MIRALAX) 17 GM PACK PO SCH (09:34)
[2017-07-09] MEDS: LISINOPRIL 10 MG TAB PO SCH (09:35)
[2017-07-09] MEDS: TAPENTADOL ER 50 MG TABCR PO SCH ×2 (09:42→20:58)
--- NOTE | 2017-07-09 10:52 | Gastroenterology Progress Note ---
Progress Note Date of Service: July 09, 2017 Subjective Pt evaluation today including: conversation w/ patient, physical exam, chart review, lab review, review of studies, review of inpatient medication list Ms. Donahue is an 87 yr old female who underwent ERCP with sphincterotomy and stone extraction yesterday, 07/08/17. She is doing well today. She is sitting up on the side of the bed and denies any nausea/vomiting or abdominal pain. WBC 13 -> 5, T Bili 6 -> 5.1 Review of Systems Constitutional: No fever Respiratory: No cough Abdomen: No pain, No nausea, No vomiting, No diarrhea, No constipation Female : No dysuria Neuro: No memory loss Psych: No depression symptoms Heme: No abnormal bleeding/bruising Endo: No fatigue Skin: + jaundice (mild), No rash Medications Current Inpatient Medications Medications (Trade) Dose Ordered Sig/Ana Cristina Route Start Time Stop Time Status Last Admin Dose Admin Piperacillin Sod/ Tazobactam Sod 4.5 gm/Dextrose 120 ml @ 30 mls/hr Q8H IV 07/08/17 00:00 07/18/17 00:00 07/09/17 09:31 30 MLS/HR Miscellaneous Information (Consult) 1 ea UD PRN N/A 07/07/17 16:00 08/06/17 15:59 Acetaminophen (Tylenol Tab) 650 mg Q4H PRN PO 07/07/17 17:30 08/06/17 17:29 Ondansetron HCl (Zofran Inj) 4 mg Q6H PRN IV 07/07/17 17:30 08/06/17 17:29 Sodium Chloride 1,000 ml @ 80 mls/hr [id number] IV 07/07/17 19:30 08/06/17 19:29 07/09/17 09:31 80 MLS/HR Cetirizine HCl (zyrTEC TAB) 10 mg DAILY PO 07/08/17 09:00 08/07/17 08:59 07/09/17 09:32 10 MG Cholecalciferol (Vitamin D Tab) 1,000 inter.unit DAILY PO 07/08/17 09:00 08/07/17 08:59 07/09/17 09:32 1,000 INTER.UNIT Duloxetine HCl (Cymbalta Cap) 90 mg DAILY PO 07/08/17 09:00 08/07/17 08:59 07/09/17 09:32 90 MG Lisinopril (Zestril Tab) 10 mg DAILY PO 07/08/17 09:00 08/07/17 08:59 07/09/17 09:35 10 MG Metoprolol Succinate (Toprol Xl Tab) 25 mg DAILY PO 07/08/17 09:00 08/07/17 08:59 07/09/17 09:33 25 MG Multivitamins (Multivitamin Tab) 1 tab DAILY PO 07/08/17 09:00 08/07/17 08:59 07/09/17 09:33 1 TAB Multivitamins/ Minerals (Multivitamin W/ Minerals Tab) 1 tab DAILY PO 07/08/17 09:00 08/07/17 08:59 07/09/17 09:33 1 TAB Pregabalin (Lyrica Cap) 200 mg BID PO 07/07/17 21:00 08/06/17 20:59 07/09/17 09:31 200 MG Promethazine HCl (Phenergan Tab) 12.5 mg Q6H PRN PO 07/07/17 17:45 08/06/17 17:44 Ropinirole HCl (Requip Tab) 0.5 mg BID PO 07/07/17 21:00 08/06/17 20:59 07/09/17 09:34 0.5 MG Ascorbic Acid (Vitamin C Tab) 500 mg DAILY PO 07/08/17 09:00 08/07/17 08:59 07/09/17 09:33 500 MG Cyanocobalamin (Vitamin B-12 Tab) 1,000 mcg DAILY PO 07/08/17 09:00 08/07/17 08:59 07/09/17 09:33 1,000 MCG Pantoprazole Sodium (Protonix Tab) 40 mg DAILY PO 07/08/17 09:00 08/07/17 08:59 07/09/17 09:33 40 MG Polyethylene (Miralax Powder Packet) 17 gm DAILY PO 07/08/17 09:00 08/07/17 08:59 07/09/17 09:34 17 GM Tapentadol (Nucynta Er Tab) 100 mg Q12 PO 07/07/17 21:00 08/06/17 20:59 5/16/18 09:42 100 MG Buspirone HCl (Buspar Tab) 5 mg HS PO 07/07/17 21:00 08/06/17 20:59 07/08/17 21:19 5 MG Acetaminophen/ Hydrocodone Bitart (Heath 7.5/325 Tab) 1 tab QID PO 07/08/17 09:00 07/22/17 08:59 07/09/17 09:32 1 TAB Warfarin Sodium (Coumadin Tab) 5 mg DAILY@16 PO 07/09/17 16:00 08/08/17 15:59 Objective Vital Signs Date Time Temp Pulse Resp B/P (MAP) Pulse Ox O2 Delivery O2 Flow Rate FiO2 07/09/17 09:01 92 Room Air 07/09/17 07:35 36.5 64 16 134/81 (98) 92 Room Air 07/09/17 02:43 36.8 60 15 124/72 (89) 92 Room Air 07/08/17 23:40 92 Room Air 07/08/17 22:52 36.6 61 15 136/61 (86) 92 Room Air 07/08/17 22:06 36.6 67 18 155/64 (94) 95 Room Air 07/08/17 21:10 36.5 61 16 148/72 (97) 95 Room Air 07/08/17 20:08 36.6 63 18 163/64 (97) 92 Room Air 07/08/17 19:30 36.5 65 16 164/82 (109) 92 Room Air 07/08/17 19:00 93 Room Air 07/08/17 19:00 36.7 63 16 154/78 (103) 93 Room Air 07/08/17 18:47 16 07/08/17 18:47 66 16 177/70 07/08/17 18:42 65 16 07/08/17 18:42 65 16 100 07/08/17 18:37 65 17 100 07/08/17 18:37 62 17 07/08/17 18:36 177/75 07/08/17 18:33 36.8 07/08/17 18:32 63 17 07/08/17 18:32 64 17 100 07/08/17 18:31 173/71 07/08/17 18:27 65 16 07/08/17 18:27 65 16 97 07/08/17 18:26 69 22 159/66 07/08/17 18:26 22 07/08/17 18:21 65 22 07/08/17 18:21 64 22 165/56 96 07/08/17 18:16 57 21 07/08/17 18:16 71 21 164/66 95 18 18:11 64 18 150/64 95 07/08/17 18:11 63 18 07/08/17 18:10 66 17 07/08/17 18:10 66 17 95 07/08/17 18:09 158/66 07/08/17 18:05 66 17 94 07/08/17 18:05 67 17 07/08/17 18:01 142/63 07/08/17 18:00 65 25 96 07/08/17 18:00 65 25 07/08/17 17:59 63 16 07/08/17 17:59 65 16 96 07/08/17 17:56 134/53 07/08/17 17:54 66 22 07/08/17 17:54 66 22 95 07/08/17 17:51 130/64 07/08/17 17:49 67 25 07/08/17 17:49 69 25 100 07/08/17 17:46 144/74 07/08/17 17:45 140/59 07/08/17 17:44 36.3 68 16 140/59 98 Oxymask 10 07/08/17 15:35 36.7 64 20 175/76 95 07/08/17 15:15 Room Air 07/08/17 15:05 36.8 63 18 151/72 94 07/08/17 14:35 36.9 62 18 148/81 93 07/08/17 14:14 36.7 65 18 168/79 (108) 94 07/08/17 14:00 36.7 65 18 169/70 (103) 07/08/17 13:58 36.7 65 18 169/70 07/08/17 13:20 36.6 68 18 151/74 (99) 93 Room Air 07/08/17 12:20 36.6 64 18 164/75 (104) 95 Room Air 07/08/17 11:50 36.7 72 16 145/66 (92) 95 Room Air 07/08/17 11:35 36.7 63 18 162/82 (108) 93 Room Air 07/08/17 11:16 36.9 64 20 151/62 92 0.0 Physical Exam General Appearance: no apparent distress Neck: no adenopathy, thyroid normal, no JVD Cardiovascular: regular rate, rhythm, + systolic murmur (2/6 systolic murmur) Abdomen: non tender, soft Extremities: no pedal edema Neurologic/Psych: alert, normal mood/affect, oriented x 3 Skin: no rash, + jaundice (mild) Laboratory Results Last 24 Hours Test 07/08/17 13:20 07/08/17 20:42 07/09/17 06:55 Prothrombin Time 17.7 SECONDS 15.0 SECONDS 13.0 SECONDS Prothromb Time International Ratio 1.7 1.4 1.2 Activated Partial Thromboplast Time 33.0 SECONDS Partial Thromboplastin Ratio 1.3 White Blood Count 5.80 K/uL Red Blood Count 3.75 M/uL Hemoglobin 11.4 g/dL Hematocrit 34.6 % Mean Corpuscular Volume 92.3 fL Mean Corpuscular Hemoglobin 30.4 pg Mean Corpuscular Hemoglobin Concent 32.9 g/dl RDW Standard Deviation 47.8 fL RDW Coefficient of Variation 14.1 % Platelet Count 149 K/uL Mean Platelet Volume 9.8 fL Sodium Level 142 mmol/L Potassium Level 3.6 mmol/L Chloride Level 109 mmol/L Carbon Dioxide Level 26 mmol/L Anion Gap 7.0 mmol/L Blood Urea Nitrogen 15 mg/dl Creatinine 1.07 mg/dl Est Creatinine Clear Calc Drug Dose 50.4 ml/min Estimated GFR () 54.8 Estimated GFR (Non- 47.3 BUN/Creatinine Ratio 13.6 Random Glucose 91 mg/dl Calcium Level 8.3 mg/dl Total Bilirubin 5.1 mg/dl Direct Bilirubin 3.2 mg/dl Aspartate Amino Transf (AST/SGOT) 65 U/L Alanine Aminotransferase (ALT/SGPT) 75 U/L Alkaline Phosphatase 179 U/L Total Protein 6.4 gm/dl Albumin 2.5 gm/dl Assessment and Plan Ms. Donahue is an 87 yr old female who underwent ERCP yesterday with sphincterotomy and stone extraction. She is doing well w/o any evidence of complications. Plan: 1. Regular consistency foods. 2. May resume anticoagulation tomorrow. 3. GI will sign off. I performed a history and physical examination of the patient, including specifically no abdominal tenderness I have discussed the patient's management with Alton Nguyen. Please refer to the SURGICAL ENDOSCOPIST's note for the documented findings and plan of care. No pain or fever. Tolerated regular diet. Bili and transaminases trending down. No leukocytosis. No evidence of bleeding. If remains stable based on labs tomorrow will resume Coumadin and discharge home on PO ABx.
[2017-07-09 11:30] VITALS: BP 123/73; PULSE 60; TEMP 36.8; O2SAT 92
--- NOTE | 2017-07-09 13:18 | Hospitalist Progress Note ---
Hospitalist Progress Note Date of Service July 09, 2017. Subjective Pt evaluation today including: conversation w/ patient, physical exam, chart review, lab review, review of studies, review of inpatient medication list Patient seen and evaluated. Had stone removed via ERCP yesterday. No pain and no further hematuria. Tolerating clear diet and has been advanced. Plans to return home on discharge. LFTs and bili continue to trend down. Reports neuropathy is improving as well. Constitutional: No fever, No chills Respiratory: No cough, No shortness of breath Cardiovascular: No chest pain Abdomen: No pain, No nausea, No vomiting, No diarrhea, No constipation Musculoskeletal: No calf pain Female : No hematuria Heme: No abnormal bleeding/bruising Medications Current Inpatient Medications Medications (Trade) Dose Ordered Sig/Ana Cristina Route Start Time Stop Time Status Last Admin Dose Admin Acetaminophen (Tylenol Tab) 650 mg Q4H PRN PO 07/07/17 17:30 08/06/17 17:29 Ondansetron HCl (Zofran Inj) 4 mg Q6H PRN IV 07/07/17 17:30 08/06/17 17:29 Cetirizine HCl (zyrTEC TAB) 10 mg DAILY PO 07/08/17 09:00 08/07/17 08:59 07/09/17 09:32 10 MG Cholecalciferol (Vitamin D Tab) 1,000 inter.unit DAILY PO 07/08/17 09:00 08/07/17 08:59 07/09/17 09:32 1,000 INTER.UNIT Duloxetine HCl (Cymbalta Cap) 90 mg DAILY PO 07/08/17 09:00 08/07/17 08:59 07/09/17 09:32 90 MG Lisinopril (Zestril Tab) 10 mg DAILY PO 07/08/17 09:00 08/07/17 08:59 07/09/17 09:35 10 MG Metoprolol Succinate (Toprol Xl Tab) 25 mg DAILY PO 07/08/17 09:00 08/07/17 08:59 07/09/17 09:33 25 MG Multivitamins (Multivitamin Tab) 1 tab DAILY PO 07/08/17 09:00 08/07/17 08:59 07/09/17 09:33 1 TAB Multivitamins/ Minerals (Multivitamin W/ Minerals Tab) 1 tab DAILY PO 07/08/17 09:00 08/07/17 08:59 07/09/17 09:33 1 TAB Pregabalin (Lyrica Cap) 200 mg BID PO 07/07/17 21:00 08/06/17 20:59 07/09/17 09:31 200 MG Promethazine HCl (Phenergan Tab) 12.5 mg Q6H PRN PO 07/07/17 17:45 08/06/17 17:44 Ropinirole HCl (Requip Tab) 0.5 mg BID PO 07/07/17 21:00 08/06/17 20:59 07/09/17 09:34 0.5 MG Ascorbic Acid (Vitamin C Tab) 500 mg DAILY PO 07/08/17 09:00 08/07/17 08:59 07/09/17 09:33 500 MG Cyanocobalamin (Vitamin B-12 Tab) 1,000 mcg DAILY PO 07/08/17 09:00 08/07/17 08:59 07/09/17 09:33 1,000 MCG Pantoprazole Sodium (Protonix Tab) 40 mg DAILY PO 07/08/17 09:00 08/07/17 08:59 07/09/17 09:33 40 MG Polyethylene (Miralax Powder Packet) 17 gm DAILY PO 07/08/17 09:00 08/07/17 08:59 07/09/17 09:34 17 GM Tapentadol (Nucynta Er Tab) 100 mg Q12 PO 07/07/17 21:00 08/06/17 20:59 07/09/17 09:42 100 MG Buspirone HCl (Buspar Tab) 5 mg HS PO 07/07/17 21:00 08/06/17 20:59 07/08/17 21:19 5 MG Acetaminophen/ Hydrocodone Bitart ([place] 7.5/325 Tab) 1 tab QID PO 07/08/17 09:00 07/22/17 08:59 07/09/17 12:40 1 TAB Ciprofloxacin (Cipro Tab) 500 mg BID PO 07/09/17 21:00 07/19/17 20:59 Objective Vital Signs Date Time Temp Pulse Resp B/P (MAP) Pulse Ox O2 Delivery O2 Flow Rate FiO2 07/09/17 11:30 36.8 60 18 123/73 (90) 92 Room Air 5/16/18 09:01 92 Room Air 18 08:30 Room Air 18 07:35 36.5 64 16 134/81 (98) 92 Room Air 18 02:43 36.8 60 15 124/72 (89) 92 Room Air 07/08/17 23:40 92 Room Air 18 22:52 36.6 61 15 136/61 (86) 92 Room Air 07/08/17 22:06 36.6 67 18 155/64 (94) 95 Room Air 07/08/17 21:10 36.5 61 16 148/72 (97) 95 Room Air 07/08/17 20:08 36.6 63 18 163/64 (97) 92 Room Air 07/08/17 19:30 36.5 65 16 164/82 (109) 92 Room Air 07/08/17 19:00 93 Room Air 07/08/17 19:00 36.7 63 16 154/78 (103) 93 Room Air 07/08/17 18:47 16 18 18:47 66 16 177/70 1518 18:42 65 16 1518 18:42 65 16 100 1518 18:37 65 17 100 07/08/17 18:37 62 17 07/08/17 18:36 177/75 18 18:33 36.8 18 18:32 63 17 1518 18:32 64 17 100 1518 18:31 173/71 1518 18:27 65 16 1518 18:27 65 16 97 1518 18:26 69 22 159/66 1518 18:26 22 1518 18:21 65 22 1518 18:21 64 22 165/56 96 1518 18:16 57 21 1518 18:16 71 21 164/66 95 15/18 18:11 64 18 150/64 95 1518 18:11 63 18 15/18 18:10 66 17 5/1518 18:10 66 17 95 1518 18:09 158/66 18 18:05 66 17 94 07/08/17 18:05 67 17 07/08/17 18:01 142/63 07/08/17 18:00 65 25 96 07/08/17 18:00 65 25 07/08/17 17:59 63 16 07/08/17 17:59 65 16 96 07/08/17 17:56 134/53 07/08/17 17:54 66 22 07/08/17 17:54 66 22 95 07/08/17 17:51 130/64 07/08/17 17:49 67 25 07/08/17 17:49 69 25 100 07/08/17 17:46 144/74 07/08/17 17:45 140/59 07/08/17 17:44 36.3 68 16 140/59 98 Oxymask 10 07/08/17 15:35 36.7 64 20 175/76 95 07/08/17 15:15 Room Air 07/08/17 15:05 36.8 63 18 151/72 94 07/08/17 14:35 36.9 62 18 148/81 93 07/08/17 14:14 36.7 65 18 168/79 (108) 94 07/08/17 14:00 36.7 65 18 169/70 (103) 07/08/17 13:58 36.7 65 18 169/70 07/08/17 13:20 36.6 68 18 151/74 (99) 93 Room Air Physical Exam General Appearance: WD/WN, no apparent distress Eyes: sclerae normal ENT: hearing grossly normal Neck: supple, no JVD, trachea midline Respiratory/Chest: lungs clear, normal breath sounds, no respiratory distress, no accessory muscle use Cardiovascular: regular rate, rhythm Abdomen: normal bowel sounds, non tender, soft Extremities: no pedal edema, no calf tenderness Neurologic/Psychiatric: alert, oriented x 3 Skin: normal color Laboratory Results Last 24 Hours Test 07/08/17 13:20 07/08/17 20:42 07/09/17 06:55 Prothrombin Time 17.7 SECONDS 15.0 SECONDS 13.0 SECONDS Prothromb Time International Ratio 1.7 1.4 1.2 Activated Partial Thromboplast Time 33.0 SECONDS Partial Thromboplastin Ratio 1.3 White Blood Count 5.80 K/uL Red Blood Count 3.75 M/uL Hemoglobin 11.4 g/dL Hematocrit 34.6 % Mean Corpuscular Volume 92.3 fL Mean Corpuscular Hemoglobin 30.4 pg Mean Corpuscular Hemoglobin Concent 32.9 g/dl RDW Standard Deviation 47.8 fL RDW Coefficient of Variation 14.1 % Platelet Count 149 K/uL Mean Platelet Volume 9.8 fL Sodium Level 142 mmol/L Potassium Level 3.6 mmol/L Chloride Level 109 mmol/L Carbon Dioxide Level 26 mmol/L Anion Gap 7.0 mmol/L Blood Urea Nitrogen 15 mg/dl Creatinine 1.07 mg/dl Est Creatinine Clear Calc Drug Dose 50.4 ml/min Estimated GFR () 54.8 Estimated GFR (Non- 47.3 BUN/Creatinine Ratio 13.6 Random Glucose 91 mg/dl Calcium Level 8.3 mg/dl Total Bilirubin 5.1 mg/dl Direct Bilirubin 3.2 mg/dl Aspartate Amino Transf (AST/SGOT) 65 U/L Alanine Aminotransferase (ALT/SGPT) 75 U/L Alkaline Phosphatase 179 U/L Total Protein 6.4 gm/dl Albumin 2.5 gm/dl Assessment and Plan Ms. 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
[2017-07-09 15:25] VITALS: BP 113/65; PULSE 61; TEMP 36.6; O2SAT 92
[2017-07-09] MEDS ORDERED: WARFARIN SOD 5 MG TAB PO SCH (16:00)
[2017-07-09] MEDS: CIPROFLOXACIN 500 MG TAB PO SCH (20:57)
[2017-07-09 23:11] VITALS: BP 122/70; PULSE 60; TEMP 36.7; O2SAT 91
[2017-07-10 06:26] LABS: HEMATOCRIT 35.8 % (37-47); HEMOGLOBIN 11.9 g/dL (12.0-16.0); MEAN CELL VOLUME 93.7 fL (80-100); MEAN CORPUSCULAR HEMOGLOBIN 31.2 pg (25-34); MEAN CORPUSCULAR HGB CONC 33.2 g/dl (32-36); MEAN PLATELET VOLUME 10.3 fL (7.4-10.4); PLATELET COUNT 182 K/uL (130-400); RED CELL DISTRIBUTION WIDTH CV 14.1 % (11.5-14.5); RED CELL DISTRIBUTION WIDTH SD 48.4 fL (36.4-46.3); WHITE BLOOD COUNT 6.07 K/uL (4.8-10.8)
[2017-07-10 07:00] LABS: ALBUMIN 2.8 gm/dl (3.4-5.0); CALCIUM 8.4 mg/dl (8.5-10.1); CREATININE 1.04 mg/dl (0.60-1.20); POTASSIUM 3.7 mmol/L (3.5-5.1)
[2017-07-10 07:02] LABS: TOTAL PROTEIN 6.8 gm/dl (6.4-8.2)
[2017-07-10 07:25] VITALS: BP 145/69; PULSE 63; TEMP 36.9; O2SAT 94
[2017-07-10 07:40] VITALS: O2SAT 94
[2017-07-10] MEDS ORDERED: CPR500 PO (08:05)
--- NOTE | 2017-07-10 08:08 | Discharge Instructions ---
Discharge Instructions Date of Service July 10, 2017. Admission Reason for Admission: Biliary Stone Discharge Discharge Diagnosis / Problem: Bile Duct Stone - Choledocholithiasis Discharge Goals Goal(s): Decrease discomfort, Improve function, Increase independence Activity Recommendations Activity Limitations: resume your previous activity . Instructions / Follow-Up Instructions / Follow-Up Bile Stone: - You were admitted because you had a bile stone stuck in your common bile duct. Your liver creates bile that breaks down fats in your diet. Sometimes this bile will harden and cause stones. These stones have to push through the common bile duct and empty into the intestines. There is a little opening into the intestine that has to stretch to pass the stone and this is what can cause a lot of pain. - You had an ERCP which went in and removed the stone and made that opening to your intestines a little bit bigger. - However, if you get worsening abdominal pain especially in the right or left upper parts of your belly. Please come to the hospital or call 911. - You will be given a prescription to have your blood work checked to make sure your liver enzymes keep coming down. You can get this in about 2 weeks anywhere you normally get blood work. - You will finish a course of antibiotics. You will take Ciprofloxacin twice a day until all the pills are gone. You had your morning dose today so you only need to take your evening dose today on 07/10. Then resume twice a day on 07/11. History of Blood Clots: - You may resume your Coumadin this evening and recommend to have your INR ( coumadin level) checked as you normally do so that you dose can be adjusted if needed Blood in the Urine: - We do not have a good explanation for this as no further blood in the urine was found. It does not appear that you have a urinary tract infection either but the antibiotics above would cover your urine if something was starting. - If this occurs again please discuss with your family doctor. You may need to see a urologist if this occurs again. - As well, an exam may be warranted to make sure this is not coming from the vagina and may benefit from a imaging tech referral if this occurs again Home Medications: - Please continue your home medications as previously prescribed. We did not make any changes to these Follow-Up: - We will help set up a follow-up appointment with your family doctor and we will contact you with this information. Current Hospital Diet Patient's current hospital diet: AHA Diet (Heart Healthy) Discharge Diet Recommended Diet: AHA Diet (Heart Healthy) Procedures Procedures Performed: Endoscopic Retrograde Cholangiopancreatogram with sphincterotomy and stone removal, Esophagogastroduodenoscopy Pending Studies Studies pending at discharge: no Medical Emergencies . Who to Call and When: Medical Emergencies: If at any time you feel your situation is an emergency, please call 911 immediately. . Non-Emergent Contact Non-Emergency issues call your: Primary Care Provider Call Non-Emergent contact if: you have a fever, your pain is concerning you, you have any medication questions . . "Provider Documentation" section prepared by Luz Starr. . [place] Drug Monitoring Program Search Results: patient reviewed within database, no issues identified
[2017-07-10] MEDS: POLYETHYLENE (MIRALAX) 17 GM PACK PO SCH (09:00)
[2017-07-10] MEDS: TAPENTADOL ER 50 MG TABCR PO SCH (09:26)
[2017-07-10] MEDS: HYDROCODONE/ACETAMINOPHEN 7.5/325MG TAB PO SCH (09:26)
[2017-07-10] MEDS: PREGABALIN 100 MG CAP PO SCH (09:26)
[2017-07-10] MEDS: CIPROFLOXACIN 500 MG TAB PO SCH (09:27)
[2017-07-10] MEDS: METOPROLOL SUCC 25MG EXT REL TAB PO SCH (09:27)
[2017-07-10] MEDS: ROPINIROLE HCL 1 MG TAB PO SCH (09:27)
[2017-07-10] MEDS: CETIRIZINE HCL 10 MG TAB PO SCH (09:27)
[2017-07-10] MEDS: MULTIVITAMIN TAB PO SCH (09:27)
[2017-07-10] MEDS: CEROVITE ADV FORMULA TAB PO SCH (09:27)
[2017-07-10] MEDS: DULOXETINE (CYMBALTA) 30 MG CAP PO SCH (09:27)
[2017-07-10] MEDS: CHOLECALCIFEROL 1000 INTER.UNIT TAB PO SCH (09:27)
[2017-07-10] MEDS: LISINOPRIL 10 MG TAB PO SCH (09:28)
[2017-07-10] MEDS: CYANOCOBALAMIN 500 MCG TAB (VIT B-12) PO SCH (09:28)
[2017-07-10] MEDS: ASCORBIC ACID 500 MG TAB PO SCH (09:28)
[2017-07-10] MEDS: PANTOprazole SOD 40 MG TAB PO SCH (09:28)
[2017-07-10 10:54] VITALS: BP 145/69; PULSE 63; TEMP 36.9; O2SAT 94
--- NOTE | 2017-07-10 13:40 | Discharge Summary ---
Discharge Summary Date of Service July 10, 2017. Discharge Summary Admission Date: July 07, 2017 at 17:29 Discharge Date: July 10, 2017 Discharge Disposition: Home Principal Diagnosis: Choledocholithiais with ERCP/Stone Removal Problems/Secondary Diagnoses: 1. Choledocholithiasis 2. H/O DVT S/P IVC Filter 3. Hematuria, Unspecified Etiology 4. Depression 5. HTN 6. Chronic Pain 7. Peripheral Neuropathy 8. RLS 9. S/P Cholecystectomy Immunizations: Have You Had Influenza Vaccine: N/A Influenza Vaccine Date: Jan 16, 2012 History of Tetanus Vaccine?: unknown History of Pneumococcal: Yes Pneumococcal Date: Sep 14, 1992 History of Hepatitis B Vaccine: No Procedures: CT SCAN OF THE ABDOMEN AND PELVIS WITHOUT CONTRAST FINDINGS: Lower chest: There are bibasilar atelectatic changes. There is a hiatal hernia. The heart is enlarged. Liver: The unenhanced liver is normal in size, contour, and attenuation. There is no intrahepatic biliary ductal dilatation. Gallbladder: Not visualized and presumed surgically absent. There is a hyperdense focus within distal common bile duct. In retrospect this was present on the prior study. This could represent a chronic common bile duct calculus. Spleen: Normal in size and attenuation. Pancreas: Unremarkable. Adrenal glands: Unremarkable. Kidneys: No renal, ureteral, or bladder calculi are visualized. Bowel: There are no transition zone to indicate bowel obstruction. There is colonic diverticulosis. There are no acute peridiverticular inflammatory changes. The appendix is not visualized. There is no evidence of acute appendicitis. Peritoneum: There is no intraperitoneal free air or abdominal ascites. Vasculature: The abdominal aorta is normal in course and caliber. An IVC filter is again visualized. Several of the struts project beyond the IVC lumen. This remains unchanged. Adenopathy: None. Pelvic viscera: The bladder, and pelvic viscera are unremarkable. Skeletal structures: There are postsurgical changes of a total right hip arthroplasty. There are advanced arthritic changes within the left hip. IMPRESSION: 1. No evidence of bowel obstruction. No evidence of free air 2. Diverticulosis. No evidence of acute diverticulitis 3. Surgically absent appendix 4. No renal, ureteral, or bladder calculi identified 5. Calcified lesion at the level of the distal common bile duct. In retrospect this was present on the prior study. A chronic nonobstructing common bile duct calculus should be considered in the differential of this lesion. ABDOMINAL ULTRASOUND, RIGHT UPPER QUADRANT FINDINGS: This exam is moderately compromised by suboptimal penetration. The common bile duct is dilated, measuring 1.1 cm in caliber. The 1.2 x 0.8 cm calcified intraluminal abnormality within the distal common bile duct shown on CT is not evident on this exam, likely due to technique. This is consistent with choledocholithiasis. The pancreas is obscured by overlying bowel gas. The gallbladder is surgically absent. There is no right hydronephrosis. IMPRESSION: Extrahepatic biliary ductal dilatation with common bile duct measuring 1.1 cm in caliber. The 1.2 x 0.8 cm common bile duct calculus shown on CT performed earlier today is not evident on this exam due to technique. ERCP - The major papilla was on the rim of a diverticulum. - The entire main bile duct was markedly dilated. - A filling defect consistent with a stone was seen on the cholangiogram. - Choledocholithiasis was found. Complete removal was accomplished by biliary sphincterotomy, dilation and balloon extraction. Consultations: 1. [facility] Medication Reconciliation New Medications: Ciprofloxacin (Ciprofloxacin HCl) 500 Mg Tab 500 MG PO BID, #13 TAB Take one tablet this evening on 07/10 then resume twice a day on 07/11. Continued Medications: Ascorbic Acid (Karo-C) 1 Cry Cry 1 TAB PO DAILY Buspirone Hcl (Buspirone Hcl) 5 Mg Tab 5 MG PO DAILY, TAB Cetirizine (Zyrtec) 10 Mg Tab 10 MG PO DAILY, TAB Cholecalciferol (Vitamin D) 1,000 Unit Tab 1000 MG PO QD Cyanocobalamin (Vitamin B-12) 1,000 Mcg Sub 1 TAB PO DAILY Duloxetine HCl (Cymbalta) 60 Mg Cap 90 MG PO DAILY Esomeprazole Magnesium (Nexium) 40 Mg Capcr 40 MG PO DAILY, 0 Refills Fiber Laxative (Fiber Laxative) Ea 4 TABS PO TID Hydrocodone/Acetaminophen 7.5MG/325MG ([place] 7.5MG/325MG) Tab 1 TAB PO DAILY PRN for Pain, TAB PRN PAIN Lisinopril (Prinivil) 10 Mg Tab 10 MG PO DAILY, TAB Metoprolol Succ (Toprol Xl) (Toprol-Xl) 25 Mg Tabcr 25 MG PO DAILY, #30 TAB Multiple Vitamin (Multivitamin) 1 Tab Tab 1 TAB PO DAILY, TAB Multiple Vitamins W/ Minerals (Ocuvite) 1 Tab Tab 1 TAB PO BID Multiple Vitamins W/ Minerals (Centrum Silver 50+Women) 1 Tab Tab 1 TAB PO DAILY Nutritional Supplements (Osteo Advance) 1 Tab Tab 1 TAB PO DAILY Polyethylene Glycol 3350 (Miralax) 1 17 GM PO DAILY, #527 GM Pregabalin (Lyrica) 200 Mg Cap 200 MG PO BID, CAP Promethazine (Phenergan ) 12.5 Mg Tab 12.5 MG PO Q6H PRN for Nausea or Vomiting, TAB Ropinirole (Requip) 0.5 Mg Tab 0.5 MG PO BID, TAB Tapentadol Hcl (Nucynta Er) 100 Mg Tab 1 TAB PO BID, TAB Warfarin Sod (Coumadin) 2.5 Mg Tab 2.5 MG PO Q2D Warfarin Sodium (Coumadin) 2 Mg Tab 2 MG PO Q2D, TAB Discharge Exam ROS Constitutional: No fever, No chills Respiratory: No cough, No shortness of breath Cardiovascular: No chest pain Abdomen: No pain, No nausea, No vomiting, No diarrhea, No constipation Musculoskeletal: No calf pain Female : No hematuria Heme: No abnormal bleeding/bruising PHYSICAL EXAMINATION: General Appearance: WD/WN, no apparent distress Eyes: sclerae normal ENT: hearing grossly normal Neck: supple, no JVD, trachea midline Respiratory/Chest: lungs clear, normal breath sounds, no respiratory distress, no accessory muscle use Cardiovascular: regular rate, rhythm Abdomen: normal bowel sounds, non tender, soft Extremities: no pedal edema, no calf tenderness Neurologic/Psychiatric: alert, oriented x 3 Skin: normal color Hospital Course ADMISSION: Ms. Donahue is having left buttock, left leg and left flank pain. She came to the emergency department due to her urine being a reddish color. She has not had any change in her stools which she says usually runs toward constipation. Last night she was nauseas and throwing up which she attributes to a large meal for mother's day. She has some upper middle abdominal pain. HOSPITAL COURSE: Bile Duct Dilation with Choledocholithiasis S/P ERCP and Sphincterotomy on 07/08 : RESOLVED - LFTs and bili continue to trend down and will have repeat LFTs in approx. 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 Code Status: FULL RESUSCITATION Total Time Spent: Greater than 30 minutes This includes examination of the patient, discharge planning, medication reconciliation, and communication with other providers. Discharge Instructions Please refer to the electronic Patient Visit Report (Discharge Instructions) for additional information. Additional Copies To Mauricio Duran M.D.; Jamia Viramontes P.A.
== END 2017-07-10 12:01 | disposition home or self-care (01) | DRG 445 ==
LOC: EDBD 10:55 → C.EDC 10:55 → C.MSN 17:29 → EDBEDREQ 17:31 → ENRESERV 17:41
PROVIDERS: ADMIT Family Medicine; ATTEND Internal Medicine
PROC: 0DJ08ZZ Inspection of Upper Intestinal Tract, Via Natural or Artificial Opening Endoscopic (ICD-10-PCS; principal; 2017-07-08 10:30)
PROC: 0FC98ZZ Extirpation of Matter from Common Bile Duct, Via Natural or Artificial Opening Endoscopic (ICD-10-PCS; principal; 2017-07-08 10:30)
DX: K80.30 Calculus of bile duct with cholangitis, unspecified, without obstruction (principal); R31.9 Hematuria, unspecified; I10 Essential (primary) hypertension; Z85.3 Personal history of malignant neoplasm of breast; K21.9 Gastro-esophageal reflux disease without esophagitis; Z96.659 Presence of unspecified artificial knee joint; Z86.718 Personal history of other venous thrombosis and embolism; Z79.01 Long term (current) use of anticoagulants; Z88.8 Allergy status to other drugs, medicaments and biological substances; K44.9 Diaphragmatic hernia without obstruction or gangrene; F32.9 Major depressive disorder, single episode, unspecified; G62.9 Polyneuropathy, unspecified

== ENCOUNTER → 2017-09-30 | Outpatient (CLI) | payer OTHER ==
[~2017-09-30] MED LIST changes: +CETI10TA84 PO; -FLUT0.15 INTNAS; +PROM12.57 PO
[2017-09-30 14:02] LABS: BLOOD UREA NITROGEN 13 mg/dl (7-18); CREATININE 0.81 mg/dl (0.60-1.20)
== END | disposition home or self-care (01) ==
LOC: C.LAB1850 12:49
PROVIDERS: ATTEND Urology
DX: R31.29 Other microscopic hematuria (principal)

== ENCOUNTER → 2017-10-02 | Outpatient (CLI) | payer OTHER ==
[~2017-10-02] MED LIST changes: +OPTIRAY 320 IV PRN
--- NOTE | 2017-10-02 10:30 | DIAGNOSTIC IMAGING REPORT ---
ABD/PELVIS COMBO CLINICAL HISTORY: 87 years-old Female presenting with hematuria. TECHNIQUE: Multidetector CT of the abdomen and pelvis was performed before and after the administration of intravenous contrast. IV contrast: 119 mL of Optiray 320. A dose lowering technique was used consistent with the principles of ALARA (as low as reasonably achievable). COMPARISON: 07/07/2017. CT DOSE (mGy.cm): The estimated cumulative dose is 2978.39 mGycm. FINDINGS: Rn Hematology topogram: Left subclavian pacer with leads to the right atrium and right ventricular apex. Cardiomegaly. IVC filter noted. Total right hip arthroplasty. Lung bases: Mild mosaic attenuation. Mild interlobular septal thickening. Dependent opacities in the lung bases, right greater than left, likely atelectasis. Trace right pleural effusion. Multichamber enlargement of the heart. Coronary artery calcification. No pericardial effusion. Liver: Normal morphology. Normal density. No liver lesion. Patent hepatic vasculature. Biliary: No intrahepatic or extrahepatic biliary ductal dilatation. Gallbladder surgically absent. Pancreas: Moderate parenchymal atrophy. Spleen: Normal. Adrenal glands: Normal. Kidneys and ureters: Renal vascular calcification evident (series 3 image 144). No nephrolithiasis. No hydronephrosis. Normal parenchymal enhancement. Normal excretion from the bilateral kidneys. No filling defects within the urinary collecting systems. No hydroureter. Evaluation of the distal ureters degraded by streak artifact arising from the right hip prosthesis. Bladder: Allowing for incomplete distention of the bladder on delayed phase, anterior bladder wall thickening is difficult to exclude (series 7 image 1:15). Pelvic organs: Uterus and ovaries normal. Bowel: Diverticulosis of the descending and proximal sigmoid colon. No wall thickening or pericolonic inflammatory change. No bowel obstruction. Moderate hiatal hernia. Duodenal diverticulum noted at the level of the pancreatic head. Peritoneal cavity: No free fluid or intraperitoneal gas. Lymph nodes: Scattered subcentimeter retroperitoneal lymph nodes likely reactive. Vasculature: Atherosclerosis of the normal caliber abdominal aorta. IVC patent. An IVC filter is in place at the level of L2-L3. Abdominal wall: Anasarca. Multiple prominent collateral veins noted in the anterior abdominal wall. Prosthetic mesh in place in the ventral abdomen from prior hernia repair. Musculoskeletal: Severe degenerative changes of the left hip as on prior exam. Total right hip arthroplasty. Osteopenia suspected. Degenerative changes of the spine. IMPRESSION: 1. Allowing for under distention of the urinary bladder and regional streak artifact, possible focal wall thickening of the anterior bladder wall. Direct visualization with cystoscopy to be considered with urologic consultation. 2. No evidence of a solid renal mass. No nephrolithiasis. 3. Diverticulosis. 4. Cardiomegaly with volume overload. Electronically signed by: Shay Frausto M.D. 10/02/2017 10:29 AM Dictated Date/Time: 10/02/2017 10:11 AM
== END | disposition home or self-care (01) ==
LOC: C.CTS 09:07
PROVIDERS: ATTEND Urology
DX: R31.29 Other microscopic hematuria (principal); I51.7 Cardiomegaly; K57.90 Diverticulosis of intestine, part unspecified, without perforation or abscess without bleeding

== ENCOUNTER 2019-02-25 17:47 | Observation (INO) ==
--- NOTE | 2019-02-25 18:22 | Emergency Department Note ---
Entered by Lydia Zarate acting as a scribe for Kade Whitley DO History of Present Illness General Chief complaint: Shortness of Breath/Dyspnea Stated complaint: SOB Source: patient Limitations: no limitations History of Present Illness Onset (ago): day(s) 4 Location: chest Pain Consistency: + constant Quality: + other (worsening SOB) Associated symptoms: + other (lower extremity swelling); no chest pain, no cough and no nausea/vomiting The patient is an 88 year old female who presents to the Emergency Room with complaints of constant SOB that began 4 days ago. She reports that the SOB worsened this morning. The patient states that the symptoms feel similar to those she experienced in the past. She complains of bilateral lower extremity edema, stating that she's recently gained weight. The patient denies any cough, rhinorrhea, chest pain, nausea/vomiting, and abdominal pain. She notes that she takes a Eliquis, and she reports a history of heart failure. The states that she does not wear oxygen at baseline. She reports a history of asthma and denies any history of COPD. Home Medications Home Medications Medication Instructions Recorded Confirmed Type Orajel 10% 1 applic TOPICAL UD PRN 02/25/19 02/25/19 History acetaminophen [Tylenol Extra 1,000 mg PO Q8 PRN 02/25/19 02/25/19 History Strength] acetaminophen [Tylenol] 650 mg PO Q6H PRN 02/25/19 02/25/19 History amiodarone [Pacerone] 200 mg PO DAILY 02/25/19 02/25/19 History apixaban [Eliquis] 2.5 mg PO BID 02/25/19 02/25/19 History calcium polycarbophil [Fiber-Lax] 625 mg PO DAILY 02/25/19 02/25/19 History duloxetine 60 mg PO DAILY 02/25/19 02/25/19 History duloxetine [Cymbalta] 30 mg PO DAILY 02/25/19 02/25/19 History fentanyl 1 patch TRANSDERMAL Q72H 02/25/19 02/25/19 History fluoride (sodium) [PreviDent 5000 1 applic DENTAL HS 02/25/19 02/25/19 History Booster Plus] furosemide 80 mg PO BID 02/25/19 02/25/19 History hydrocodone-acetaminophen [[place]] 1 tab PO Q6 PRN 02/25/19 02/25/19 History ipratropium-albuterol 3 ml INHALATION Q12 02/25/19 02/25/19 History linaclotide [Linzess] 145 mcg PO DAILY 02/25/19 02/25/19 History metolazone 2.5 mg PO MOTH 02/25/19 02/25/19 History metoprolol succinate 25 mg PO DAILY 02/25/19 02/25/19 History omeprazole 20 mg PO DAILY 02/25/19 02/25/19 History peg 400-propylene glycol [Systane 1 drp OPHTHALMIC (EYE) BID 02/25/19 02/25/19 History (propylene glycol)] polyethylene glycol 3350 [Miralax] 17 g PO Q OTHER DAY 02/25/19 02/25/19 History potassium chloride 40 meq PO .QMOTH 02/25/19 02/25/19 History potassium chloride 40 meq PO BID 02/25/19 02/25/19 History pramoxine [Sarna Sensitive] 1 applic TOPICAL BID 02/25/19 02/25/19 History pregabalin 150 mg PO BID 02/25/19 02/25/19 History ropinirole 2 mg PO BID 02/25/19 02/25/19 History saliva substitute combo no.9 1 ea PO TID 02/25/19 02/25/19 History [Biotene Dry Mouth Oral Rinse] Allergies Allergy/AdvReac Type Severity Reaction Status Date / Time pollen extracts Allergy Unknown ALLERGY TO Verified 02/25/19 19:20 ALEGRE prednisone Allergy Unknown unknown Verified 02/25/19 19:20 egg AdvReac Unknown DIARRHEA, Verified 02/25/19 19:20 NAUSEATED Past Med/Surg History Medical History Anxiety Breast CA 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 CPAP Vertigo (Acute 03/04/11) Surgical History H/O mastectomy History of appendectomy History of cardiac pacemaker in situ (Chronic) History of carpal tunnel release of both wrists History of difficult intubation 07/07/17= GRADE 2 VIEW, GLIDESCOPE#3, ETT 7.5 AT [facility] History of ERCP 07/07/17= GRADE 2 VIEW, GLIDESCOPE#3, ETT 7.5 AT [facility] History of inferior vena caval filter placement History of total right hip arthroplasty History of total right knee replacement (TKR) Hx of cholecystectomy Hx of eye surgery (Chronic) Social History Preferred Language: Cymro Communication Ability: Effective Visual Impairment: No Limitations Hearing Ability: Use of Hearing Aid Machine Washer Required: No Beliefs That Will Affect Care: None marital status: Current Living Situation: Senior Living Current Living Situation Comment: ASSISTED LIVING FACILITY, [facility] current occupational status: retired Feels Safe at Home: Yes Safety Concerns: Feels Safe At This Time Smoking Status: Never smoker Second Hand Exposure: No ; Hx Alcohol Use: No Hx Substance Use: No Review of Systems See HPI for pertinent positives & negatives. and A total of 10 systems reviewed and were otherwise negative Physical Exam Vital Signs Vital Signs - 24 hr 02/25/19 18:05 02/25/19 18:07 02/25/19 18:34 Temperature 36.7 C Temperature Source Oral Pulse Rate 69 Pulse Rate [Finger] Pulse Rhythm [Finger] Pulse Strength [Finger] Respiratory Rate 30 H Respiratory Effort / Characteristics Respiratory Depth Respiratory Pattern Blood Pressure 138/68 Blood Pressure [Left Arm] Blood Pressure Mean 91 Blood Pressure Mean [Left Arm] Blood Pressure Position [Left Arm] Pulse Oximetry 84 L 99 100 Oxygen Delivery Method Nasal Cannula Non-rebreather Non-rebreather Non-rebreather Oxygen Flow Rate 4 Sepsis Recent Fever Within 48 Hours No Sepsis Action Taken by Nursing No Action Required 02/25/19 20:19 02/25/19 21:14 Temperature Temperature Source Pulse Rate Pulse Rate [Finger] 69 69 Pulse Rhythm [Finger] Regular Regular Pulse Strength [Finger] Normal Normal Respiratory Rate 15 15 Respiratory Effort / Characteristics Non-Labored Spontaneous Non-Labored Spontaneous Respiratory Depth Normal Normal Respiratory Pattern Regular Regular Blood Pressure Blood Pressure [Left Arm] 133/87 115/43 L Blood Pressure Mean Blood Pressure Mean [Left Arm] 102 67 Blood Pressure Position [Left Arm] Lying Lying Pulse Oximetry 100 97 Oxygen Delivery Method Non-rebreather Non-rebreather Oxygen Flow Rate 8 8 Sepsis Recent Fever Within 48 Hours Sepsis Action Taken by Nursing GENERAL: Obese, sitting up in bed, dyspneic with conversation, on rebreather, no distress EYE EXAM: normal conjunctiva OROPHARYNX: no exudate, no erythema, lips, buccal mucosa, and tongue normal and mucous membranes are moist NECK: supple, no nuchal rigidity, no adenopathy, non-tender LUNGS: Distant with faint rhonchi bilaterally HEART: no murmurs, S1 normal and S2 normal ABDOMEN: Obese, abdomen soft, non-tender, normo-active bowel sounds, no masses, no rebound or guarding. BACK: Back is symmetrical on inspection and there is no deformity, no midline tenderness, no CVA tenderness. SKIN: no rashes and no bruising UPPER EXTREMITIES: upper extremities are grossly normal. LOWER EXTREMITIES: Pitting edema tracking up to the hips. Mild erythema on bilateral shins. NEURO EXAM: Normal sensorium, cranial nerves II-XII grossly intact, normal speech, no gross weakness of arms, no gross weakness of legs. Course Course ED COURSE: Vital signs were reviewed and showed normal vital signs. The patients medical record was reviewed The above diagnostic studies were performed and reviewed. ED treatments and interventions as stated above. 1808: The patient was evaluated in room C01B. A complete history and physical examination was performed. Per the patient's records, she is taking Eliquis. 1907: I updated the patient, and she stated that she did not want to try BiPAP at this time. 1926: I spoke with Dr. Moyer, [facility] hospitalist, about the patients case. He will further evaluate the patient. 1928: Upon reevaluation, the patient is stable. I discussed my findings with the patient and she understands and agrees with the treatment plan. 2116: I checked on the patient, and she was still on a rebreather. Based on the patients age, coexisting illnesses, exam and lab findings the decision to treat as an inpatient was made. The patient remained stable while under my care. The patient will be evaluated for further management. Administered Medications Discontinued Medications Furosemide (Lasix) 60 mg IV NOW STA Stop: 02/25/19 19:26 Last Admin: 02/25/19 20:14 Dose: 60 mg Documented by: [id number] Levofloxacin/Dextrose (Levaquin/D5w) 750 mg in 150 mls @ 100 mls/hr IV Q24H CHEL Stop: 03/11/19 19:14 Last Infusion: 02/25/19 21:14 Dose: 0 mls/hr Documented by: [id number] Admin: 02/25/19 19:17 Dose: 100 mls/hr Documented by: [id number] Nitroglycerin (Nitro-Bid 2%) 0.5 inch EXT Q6H CHEL Stop: 03/27/19 19:14 Last Admin: 02/25/19 19:17 Dose: 0.5 inch Documented by: [id number] Critical Care Time Critical Care Time: Yes Total Critical Care Time: 34 I have personally spent 34 minutes of critical care time in the direct management of this patient. This includes bedside care, interpretation of diagnostic studies, and testing, discussion with consultants, patient, and [facility] members, and other required patient management activities. This 34 minutes is in excess of all separately billable procedures. Medical Decision Making Differential Diagnosis Differential diagnoses includes but is not limited to pneumonia, bronchitis, COPD/Asthma exacerbation, pneumothorax, pulmonary embolism, congestive heart failure, acute coronary syndrome Medical Records Attestation: I reviewed the patient's medical records. Home Medications Current Medication List: was personally reviewed by me Laboratory Data Attestation: I reviewed the patient's lab results. Result diagrams: 02/25/19 18:42 02/25/19 18:42 Lab Results 02/25/19 02/25/19 02/25/19 Range/Units 18:40 18:42 18:42 WBC 6.34 (4.8-10.8) K/uL RBC 4.32 (4.2-5.4) M/uL Hgb 13.1 (12.0-16.0) g/dL Hct 40.8 (37-47) % MCV 94.4 (80-100) fL MCH 30.3 (25-34) pg MCHC 32.1 (32-36) g/dL RDW Std Deviation 49.6 H (36.4-46.3) fL RDW Coeff of Carole 14.4 (11.5-14.5) % Plt Count 204 (130-400) K/uL MPV 10.3 (7.4-10.4) fL Immature Gran % (Auto) 0.5 % Neut % (Auto) 52.6 % Lymph % (Auto) 30.1 % [place] % (Auto) 13.2 % Eos % (Auto) 3.3 % Baso % (Auto) 0.3 % Immature Gran # (Auto) 0.03 H (0.00-0.02) K/uL Neut # (Auto) 3.33 (1.4-6.5) K/uL Lymph # (Auto) 1.91 (1.2-3.4) K/uL [place] # (Auto) 0.84 H (0.11-0.59) K/uL Eos # (Auto) 0.21 (0-0.5) K/uL Baso # (Auto) 0.02 (0-0.2) K/uL PT 10.9 (9.0-12.0) Seconds INR 1.1 (0.9-1.1) APTT 26.8 (21.0-31.0) Seconds PTT Ratio 1.0 VBG pH (7.36-7.41) VBG pCO2 (38-50) mmHg VBG pO2 mmHg VBG HCO3 mmol/L VBG O2 Saturation % VBG Base Excess mEq/L Barometric Pressure mm/Hg Sodium (136-145) mmol/L Potassium (3.5-5.1) mmol/L Chloride (98-107) mmol/L Carbon Dioxide (21-32) mmol/L Anion Gap (3-11) BUN (7-18) mg/dl Creatinine (0.6-1.2) mg/dl Est Cr Clr Drug Dosing ml/min Est GFR ( Amer) Est GFR (Non-Af Amer) BUN/Creatinine Ratio (10-20) Glucose (70-99) mg/dl Calcium (8.5-10.1) mg/dl Magnesium (1.8-2.4) mg/dl Total Bilirubin (0.2-1) mg/dl AST (15-37) U/L ALT (12-78) U/L Alkaline Phosphatase (45-117) U/L Troponin I (0-0.045) ng/ml NT-Pro-B Natriuret Pep (0-1800) pg/ml Total Protein (6.4-8.2) gm/dl Albumin (3.4-5.0) gm/dl Globulin (2.5-4.0) gm/dl Albumin/Globulin Ratio (0.9-2) Urine Color Urine Appearance (Clear) Urine pH (4.5-7.5) Ur Specific [place] (1.000-1.030) Urine Protein (Negative) Urine Glucose (UA) (Negative) Urine Ketones (Negative) Urine Blood (Negative) Urine Nitrite (Negative) Urine Bilirubin (Negative) Urine Urobilinogen (Negative) Ur Leukocyte Esterase (Negative) Urine WBC (Auto) (0-5) /hpf Urine RBC (Auto) (0-4) /hpf U Hyaline Cast (Auto) (0-5) /lpf U Epithel Cells (Auto) (0-5) /lpf Urine Bacteria (Auto) (Negative) Influenza Type A (PCR) Neg for Influ A (Neg) Influenza Type B (PCR) Neg for Influ B (Neg) 02/25/19 02/25/19 02/25/19 Range/Units 18:42 18:42 20:20 WBC (4.8-10.8) K/uL RBC (4.2-5.4) M/uL Hgb (12.0-16.0) g/dL Hct (37-47) % MCV (80-100) fL MCH (25-34) pg MCHC (32-36) g/dL RDW Std Deviation (36.4-46.3) fL RDW Coeff of Carole (11.5-14.5) % Plt Count (130-400) K/uL MPV (7.4-10.4) fL Immature Gran % (Auto) % Neut % (Auto) % Lymph % (Auto) % [place] % (Auto) % Eos % (Auto) % Baso % (Auto) % Immature Gran # (Auto) (0.00-0.02) K/uL Neut # (Auto) (1.4-6.5) K/uL Lymph # (Auto) (1.2-3.4) K/uL [place] # (Auto) (0.11-0.59) K/uL Eos # (Auto) (0-0.5) K/uL Baso # (Auto) (0-0.2) K/uL PT (9.0-12.0) Seconds INR (0.9-1.1) APTT (21.0-31.0) Seconds PTT Ratio VBG pH 7.35 L (7.36-7.41) VBG pCO2 61 H (38-50) mmHg VBG pO2 36 mmHg VBG HCO3 33 mmol/L VBG O2 Saturation 67.0 % VBG Base Excess 5.8 mEq/L Barometric Pressure 728.3 mm/Hg Sodium 141 (136-145) mmol/L Potassium 3.9 (3.5-5.1) mmol/L Chloride 102 (98-107) mmol/L Carbon Dioxide 34 H (21-32) mmol/L Anion Gap 5.0 (3-11) BUN 21 H (7-18) mg/dl Creatinine 1.24 H (0.6-1.2) mg/dl Est Cr Clr Drug Dosing 44.3 ml/min Est GFR ( Amer) 45.5 Est GFR (Non-Af Amer) 39.3 BUN/Creatinine Ratio 16.8 (10-20) Glucose 162 H (70-99) mg/dl Calcium 8.7 (8.5-10.1) mg/dl Magnesium 2.3 (1.8-2.4) mg/dl Total Bilirubin 0.6 (0.2-1) mg/dl AST 13 L (15-37) U/L ALT 14 (12-78) U/L Alkaline Phosphatase 106 (45-117) U/L Troponin I < 0.015 (0-0.045) ng/ml NT-Pro-B Natriuret Pep 1404 (0-1800) pg/ml Total Protein 8.0 (6.4-8.2) gm/dl Albumin 3.1 L (3.4-5.0) gm/dl Globulin 4.9 H (2.5-4.0) gm/dl Albumin/Globulin Ratio 0.6 L (0.9-2) Urine Color Yellow Urine Appearance Clear (Clear) Urine pH 7.0 (4.5-7.5) Ur Specific [place] 1.010 (1.000-1.030) Urine Protein Negative (Negative) Urine Glucose (UA) Negative (Negative) Urine Ketones Negative (Negative) Urine Blood Negative (Negative) Urine Nitrite Negative (Negative) Urine Bilirubin Negative (Negative) Urine Urobilinogen Negative (Negative) Ur Leukocyte Esterase 1+ H (Negative) Urine WBC (Auto) 5-10 H (0-5) /hpf Urine RBC (Auto) 0-4 (0-4) /hpf U Hyaline Cast (Auto) 1-5 (0-5) /lpf U Epithel Cells (Auto) >30 H (0-5) /lpf Urine Bacteria (Auto) Negative (Negative) Influenza Type A (PCR) (Neg) Influenza Type B (PCR) (Neg) Imaging Data Radiologist's Impression: Radiology results as stated below per my review and the radiologist's interpretation: XR chest 1V portable CLINICAL HISTORY: Dyspnea dyspnea COMPARISON STUDY: 02/04/2018 FINDINGS: Moderate cardiac enlargement. Prominent pulmonary vasculature. Diaphragms are smooth. Potential small superimposed parenchymal infiltrate right base. IMPRESSION: 1. Congestive heart failure. 2. Potential small superimposed parenchymal infiltrate right base. ACT 112: Negative or not required by law. The above report was generated using voice recognition software. It may contain grammatical, syntax or spelling errors. Electronically signed by: Gary Huynh M.D. 02/25/2019 6:31 PM ECG Data Attestation: I personally reviewed and interpreted this ECG as follows: Indication: + SOB/dyspnea Rate (beats per minute): 69 Rhythm: + other (atrial paced) ECG Wayside: + Left axis deviation ECG Findings: + Q waves (Septal) and + Other (nonspecific ST changes in the high lateral, QTC is normal ) Blood Pressure Blood Pressure Findings: Elevated blood pressure Blood Pressure Disposition: further management by hospitalist NINA Cottrell Patient is an 88-year-old female with a past medical history A. fib, DVT, CHF and asthma who presents the ER for swelling and shortness of breath. She is from [facility] and shortness of breath has been worsening for the past 4 days. They have been increasing nasal cannula on her which she normally does not wear. Currently on 4 L upon transport to the ER. She was flipped to a nonrebreather in the ER. She is awake alert and oriented. She is taking Eliquis. On exam she has diffuse pitting edema tracking up bilateral lower extremities. Mild rhonchi at the base of both lungs. Denies any cough runny nose or URI symptoms. IV was established blood work was obtained. Labs show no significant leukocytosis or anemia. INR was unremarkable. VBG with a pH of 7.35 and a CO2 elevated at 61. BMP with creatinine 1.24. Glucose slightly elevated at 162. LFTs bilirubin troponin was negative. UA was contaminated with multiple epithelial cells. Influenza was negative. Chest x-ray with pulmonary edema and a questionable infiltrate. Patient was covered with antibiotics. She remained on nonrebreather throughout her stay in the ER. She was given IV Lasix and placed on Nitropaste. Symptoms did improve significantly. Discussed with the hospitalist and was admitted for further work-up. Impression & Plan Hypoxia, CHF (congestive heart failure), Hypercarbia Discharge Plan Visit Data *Final* Discharge Date/Time: 02/25/19 22:21 Chief Complaint: Shortness of Breath/Dyspnea Stated Complaint: SOB ED Provider: Kade Whitley Discharge Problem: Hypoxia, CHF (congestive heart failure), Hypercarbia Patient Disposition: Admitted As Inpatient Discharge Instructions Interventions: ED Discharge Assessment Last Done: 02/25/19 22:21 Discharge Problem: CHF (congestive heart failure) Qualifiers: Heart failure type: unspecified Heart failure chronicity: unspecified Qualified Code(s): I50.9 - Heart failure, unspecified The scribe's documentation has been prepared under my direction and personally reviewed by me in its entirety. I confirm that the note above accurately reflects all work, treatment, procedures, and medical decision making performed by me.
--- NOTE | 2019-02-25 18:33 | XRay Report ---
XR chest 1V portable CLINICAL HISTORY: Dyspnea dyspnea COMPARISON STUDY: 02/04/2018 FINDINGS: Moderate cardiac enlargement. Prominent pulmonary vasculature. Diaphragms are smooth. Poten tial small superimposed parenchymal infiltrate right base. IMPRESSION: 1. Congestive heart failure. 2. Potential small superimposed parenchymal infiltrate right base. ACT 112: Negative or not required by law. The above report was generated using voice recognition software. It may contain grammatical, syntax or spelling errors. Electronically signed by: Gary Huynh M.D. 02/25/2019 6:31 PM
[2019-02-25 18:53] LABS: Basophils # (auto) 0.02 K/uL (0-0.2); Basophils % (auto) 0.3 %; Eosinophils # (auto) 0.21 K/uL (0-0.5); Eosinophils % (auto) 3.3 %; Hematocrit (blood only) 40.8 % (37-47); Hemoglobin 13.1 g/dL (12.0-16.0); Immature Granulocytes # (auto) 0.03 K/uL (0.00-0.02); Immature Granulocytes % (auto) 0.5 %; Lymphocytes # (auto) 1.91 K/uL (1.2-3.4); Lymphocytes % (auto) 30.1 %; Mean Corpuscular Hemoglobin 30.3 pg (25-34); Mean Corpuscular Hgb Conc 32.1 g/dL (32-36); Mean Corpuscular Volume 94.4 fL (80-100); Mean Platelet Volume 10.3 fL (7.4-10.4); Monocytes # (auto) 0.84 K/uL (0.11-0.59); Monocytes % (auto) 13.2 %; Neutrophils # (auto) 3.33 K/uL (1.4-6.5); Neutrophils % (auto) 52.6 %; Platelet Count 204 K/uL (130-400); RDW Coefficient of Variation 14.4 % (11.5-14.5); RDW Standard Deviation 49.6 fL (36.4-46.3); Red Blood Count 4.32 M/uL (4.2-5.4); White Blood Count 6.34 K/uL (4.8-10.8)
[2019-02-25 18:58] LABS: Base Excess VBG 5.8 mEq/L; pH VBG 7.35 (7.36-7.41)
[2019-02-25 19:07] LABS: INR 1.1 (0.9-1.1); Partial Thromboplastin Time 26.8 Seconds (21.0-31.0); Prothrombin Time 10.9 Seconds (9.0-12.0)
[2019-02-25 19:14] LABS: Alanine Aminotransferase 14 U/L (12-78); Albumin Level 3.1 gm/dl (3.4-5.0); Aspartate Aminotransferase 13 U/L (15-37); BUN Creatinine Ratio 16.8 (10-20); Blood Urea Nitrogen 21 mg/dl (7-18); Calcium 8.7 mg/dl (8.5-10.1); Carbon Dioxide 34 mmol/L (21-32); Chloride 102 mmol/L (98-107); Creatinine Clr Calc Pharmacy 44.3 ml/min; Est GFR (African American) 45.5; Est GFR (Non-African American) 39.3; Glucose 162 mg/dl (70-99); Magnesium 2.3 mg/dl (1.8-2.4); Potassium 3.9 mmol/L (3.5-5.1); Sodium 141 mmol/L (136-145)
[2019-02-25] MEDS ORDERED: NITROGLYCERIN 2% OINTMENT 30GM TUBE EXT SCH ×2 (19:15→22:15)
[2019-02-25] MEDS ORDERED: LEVOFLOXACIN/D5W 750 MG/150 ML BAG IV SCH (19:15)
[2019-02-25 19:19] LABS: Albumin Globulin Ratio 0.6 (0.9-2); Alkaline Phosphatase 106 U/L (45-117); Bilirubin,Total 0.6 mg/dl (0.2-1); Globulin 4.9 gm/dl (2.5-4.0); NT Pro B Type Natriuretic Pept 1404 pg/ml (0-1800); Troponin I < 0.015 ng/ml (0-0.045)
[2019-02-25] MEDS ORDERED: FUROSEMIDE 40 MG/4 ML VIAL IV STA (19:25)
[2019-02-25 19:40] LABS: Influenza A virus by PCR Neg for Influ A (Neg); Influenza B virus by PCR Neg for Influ B (Neg)
--- NOTE | 2019-02-25 20:15 | History & Physical Report ---
Date of Service February 25, 2019 Assessment & Plan (1) CHF (congestive heart failure): 88 y/o F Hx PAF, CHF, CKD III, morbid obesity, pulmonary HTN, AV pacer, chronic pain. She resides in a nursing facility and was sent to the hospital due to progressive SOB. She denies CP, a productive cough or fevers. Per family, edema in her lower extremities appears more prominent. Initial labs are unremarkable. A CXR is consistent with CHF. 1) CHF exacerbation - the pt received Lasix, NTG and was placed on BiPAP - cont IV Lasix as she is on a high dose at home - Metolazone daily will be added 2) Tachy - hesham syndrome, PAF - pacer - she is atrially paced only on admission - this is appropriate per recent EPS notes. Cont Amio, Metoprolol, apixaban 3) History of DVT - Heparin will be provided in hospital 4) MITCH - CPAP provided 5) LE edema - may be developing cellulitis although per family this is likely a chronic issue - would observe for now as diuresis may help 6) Chronic pain - cont Fentanyl, [place] PRN Full code - Heparin prophylaxis Total time for this admit including review of labs, meds, imaging, EKG, records - discussion with pt, family and ER attending - 45 min History of Present Illness Chief Complaint: shortness of breath Primary Care Provider: Paul Claudio 88 y/o F Hx PAF, CHF, CKD III, morbid obesity, pulmonary HTN, AV pacer, chronic pain. She resides in a nursing facility and was sent to the hospital due to progressive SOB. She denies CP, a productive cough or fevers. Per family, edema in her lower extremities appears more prominent. Initial labs are unremarkable. A CXR is consistent with CHF. PMH: 1) PAF - may have been a loan episode in 2018 where she was cardioverted - anticoagulation with Apixaban 2) AV pacer for tachy/hesham syndrome 3) CHF - per echo, this appears to be mostly R heart failure although her L EF is borderline at 50%. Diastolic function could not be accurately assessed as the study was limited by the pt's habitus. 4) Breast CA 2011 5) Chronic LE edema and cellulitis 6) Moderate pulmonary HTN 7) MITCH 8) CKD III 9) History of DVT - possibly post-op 10) Osteoporosis and chronic back pain - Narcotic dependent Surgical: 1) Cholecystectomy 2) R TKA 3) R SARAH BETH 4) IVC filter 5) R mastectomy 6) BL carpal release Social: Does not drink or smoke - [place] resident Family: Noncontributory due to pt age Allergies Allergy/AdvReac Type Severity Reaction Status Date / Time pollen extracts Allergy Unknown ALLERGY TO Verified 02/25/19 19:20 ALEGRE prednisone Allergy Unknown unknown Verified 02/25/19 19:20 egg AdvReac Unknown DIARRHEA, Verified 02/25/19 19:20 NAUSEATED Home Medications Home Medications Medication Instructions Recorded Confirmed Type Orajel 10% 1 applic TOPICAL UD PRN 02/25/19 02/25/19 History acetaminophen [Tylenol Extra 1,000 mg PO Q8 PRN 02/25/19 02/25/19 History Strength] acetaminophen [Tylenol] 650 mg PO Q6H PRN 02/25/19 02/25/19 History amiodarone [Pacerone] 200 mg PO DAILY 02/25/19 02/25/19 History apixaban [Eliquis] 2.5 mg PO BID 02/25/19 02/25/19 History calcium polycarbophil [Fiber-Lax] 625 mg PO DAILY 02/25/19 02/25/19 History duloxetine 60 mg PO DAILY 02/25/19 02/25/19 History duloxetine [Cymbalta] 30 mg PO DAILY 02/25/19 02/25/19 History fentanyl 1 patch TRANSDERMAL Q72H 02/25/19 02/25/19 History fluoride (sodium) [PreviDent 5000 1 applic DENTAL HS 02/25/19 02/25/19 History Booster Plus] furosemide 80 mg PO BID 02/25/19 02/25/19 History hydrocodone-acetaminophen [[place]] 1 tab PO Q6 PRN 02/25/19 02/25/19 History ipratropium-albuterol 3 ml INHALATION Q12 02/25/19 02/25/19 History linaclotide [Linzess] 145 mcg PO DAILY 02/25/19 02/25/19 History metolazone 2.5 mg PO MOTH 02/25/19 02/25/19 History metoprolol succinate 25 mg PO DAILY 02/25/19 02/25/19 History omeprazole 20 mg PO DAILY 02/25/19 02/25/19 History peg 400-propylene glycol [Systane 1 drp OPHTHALMIC (EYE) BID 02/25/19 02/25/19 History (propylene glycol)] polyethylene glycol 3350 [Miralax] 17 g PO Q OTHER DAY 02/25/19 02/25/19 History potassium chloride 40 meq PO .QMOTH 02/25/19 02/25/19 History potassium chloride 40 meq PO BID 02/25/19 02/25/19 History pramoxine [Sarna Sensitive] 1 applic TOPICAL BID 02/25/19 02/25/19 History pregabalin 150 mg PO BID 02/25/19 02/25/19 History ropinirole 2 mg PO BID 02/25/19 02/25/19 History saliva substitute combo no.9 1 ea PO TID 02/25/19 02/25/19 History [Biotene Dry Mouth Oral Rinse] Past Med/Surg History Medical History Anxiety Breast CA Carcinoma of breast (03/04/11) CHF (congestive heart failure) CHF exacerbation Chronic pain syndrome Deep venous thrombosis (Chronic) DVT (deep venous thrombosis) Elevated INR Elevated troponin Lymphedema Macular degeneration Morbid obesity Osteoarthritis Pacemaker IMPLANTED 2014 03/ TACHY-HESHAM/SSS LAST PACER CHECK 01/21/18 Paroxysmal atrial fibrillation Pulmonary hypertension MODERATE 40-50MMHG Sleep apnea ? CPAP Vertigo (Acute 03/04/11) Surgical History H/O mastectomy History of appendectomy History of cardiac pacemaker in situ (Chronic) History of carpal tunnel release of both wrists History of difficult intubation 07/07/17= GRADE 2 VIEW, GLIDESCOPE#3, ETT 7.5 AT [facility] History of ERCP 07/07/17= GRADE 2 VIEW, GLIDESCOPE#3, ETT 7.5 AT [facility] History of inferior vena caval filter placement History of total right hip arthroplasty History of total right knee replacement (TKR) Hx of cholecystectomy Hx of eye surgery (Chronic) Social History Preferred Language: Hebrew Communication Ability: Effective Visual Impairment: No Limitations Hearing Ability: Use of Hearing Aid Senior [employer] Developer Required: Yes Beliefs That Will Affect Care: None marital status: Current Living Situation: [facility] Current Living Situation Comment: ASSISTED LIVING FACILITY, [facility] current occupational status: retired Feels Safe at Home: Yes Smoking Status: Never smoker Second Hand Exposure: No ; Hx Alcohol Use: No Hx Substance Use: No Review of Systems Review of Systems: Gen: Denies fevers, night sweats, rigors, fatigue, malaise, weight loss/gain ENT: Denies congestion, throat pain, hearing loss Eyes: Denies acute visual changes CV: Denies CP, palpitations Pulmonary: Progressive SOB as per HPI GI: Denies N/V, diarrhea, constipation Neuro: Denies acute or unilateral weakness, acute gait impairment, headache or acute visual changes Musculoskeletal: Denies joint pain, inflammation - worsening LE edema Endocrine: Denies polydipsia, polyuria Skin: Chronic LE erythema Physical Exam Physical Exam: General: Obese, elderly F, AAO x 3, no distress ENT: No erythema or exudates, no thrush Eyes: DESI, EOMI Head and neck: Normocephalic, atraumatic - cannot assess JVD Chest/heart: Nontender, S1,2, RRR, faint Lungs: No wheezing - exam is very limited due to habitus however, crackles are discenable at both bases Abdomen: Nontender, nondistended, BS+ Neuro: AAO x 3, speech is clear, no unilateral weakness or loss of sensation, coordination intact Musculoskeletal: 3++ BL LE edema Skin: LE skin is erythematous without warmth - R > L Extremities: + edema as above Results & Data Vital Signs (Past 12 Hours) Vital Signs Temp Pulse Resp BP Pulse Ox 02/25/19 18:34 100 02/25/19 18:07 99 02/25/19 18:05 98.1 F 69 30 H 138/68 84 L PG Care Time/CCT Total # of Minutes Spent Total Time Spent with Patient: Total time spent is greater than 50% in coordination of care (as documented) at patient's floor/unit and/or counseling patient: (1) CHF (congestive heart failure) Heart failure chronicity: unspecified Heart failure type: unspecified Qualified Code(s): I50.9 - Heart failure, unspecified
[2019-02-25 20:38] LABS: Appearance Urine Clear (Clear); Bacteria Urine Automated Negative (Negative); Bilirubin Urine Negative (Negative); Blood Urine Negative (Negative); Color Urine Yellow; Epithelial Cell Urine Auto >30 /lpf (0-5); Glucose Urine UA Negative (Negative); Ketones Urine Negative (Negative); Leukocyte Esterase Urine 1+ (Negative); Nitrite Urine Negative (Negative); Protein Urine Negative (Negative); RBC Urine Automated 0-4 /hpf (0-4); Urobilinogen Urine Negative (Negative)
[2019-02-25] MEDS ORDERED: ALUMINUM/MAGNESIUM SUSP 30 ML UDC PO PRN (22:15)
[2019-02-25] MEDS ORDERED: ACETAMINOPHEN 500 MG TAB PO PRN (22:15)
[2019-02-25] MEDS: CHECK FENTANYL PATCH PLACEMENT SCH (23:59)
[2019-02-26] MEDS ORDERED: FUROSEMIDE 40 MG/4 ML VIAL IV SCH (06:00)
[2019-02-26] MEDS: HYDROCODONE/ACETAMOPHEN 5/325MG TAB PO PRN ×2 (06:04→17:52)
[2019-02-26 06:07] LABS: BUN Creatinine Ratio 20.1 (10-20); Calcium 8.7 mg/dl (8.5-10.1); Creatinine Clr Calc Pharmacy 44.9 ml/min; Est GFR (African American) 45.1; Est GFR (Non-African American) 38.9; Magnesium 2.2 mg/dl (1.8-2.4); Potassium 3.9 mmol/L (3.5-5.1)
[2019-02-26] MEDS: FUROSEMIDE 60 MG in SYRINGE 0 ML IV SCH ×3 (06:13→17:50)
[2019-02-26] MEDS: ALBUT/IPRATROP 3MG/0.5MG NEB 3 ML VIAL INH SCH ×2 (07:10→19:11)
[2019-02-26] MEDS: PANTOprazole 40 MG TAB PO SCH (08:44)
[2019-02-26] MEDS: ROPINIROLE HCL 1 MG TABLET PO SCH ×2 (08:45→19:44)
[2019-02-26] MEDS: DULOXETINE HCL 60 MG CAP PO SCH (08:45)
[2019-02-26] MEDS: POTASSIUM CHLORIDE 20 MEQ TABCR PO SCH ×2 (08:45→19:44)
[2019-02-26] MEDS: metOLazone 2.5 MG TABLET PO SCH (08:45)
[2019-02-26] MEDS: DULOXETINE HCL 30 MG CAP PO SCH (08:45)
[2019-02-26] MEDS: METOPROLOL SUCC 25MG EXT REL TAB PO SCH (08:45)
[2019-02-26] MEDS: POLYETHYLENE (MIRALAX) 17 GM PACK PO SCH (08:46)
[2019-02-26] MEDS: PREGABALIN 150 MG CAP PO SCH ×2 (08:49→19:43)
[2019-02-26] MEDS ORDERED: APIXABAN 2.5 MG TAB PO SCH (09:00)
[2019-02-26] MEDS: CHECK FENTANYL PATCH PLACEMENT SCH ×2 (09:01→17:50)
--- NOTE | 2019-02-26 12:11 | Cardiology Consultation ---
Date of Consultation February 26, 2019 Assessment & Plan (1) CHF (congestive heart failure): Patient did appear to present with pulmonary edema. She underwent diuresis with resolution of her symptoms also suggesting pulmonary edema was the etiology of her dyspnea. Reason for decompensation is unclear. In October of last year she had preserved LV systolic function. She may have an element of diastolic dysfunction. He certainly has lower extremity edema chronically and overall is likely volume overloaded. She is not appear to have any a arrhythmia. She did not have chest pain or evidence of recent infarction. No dietary indiscretion. No medication noncompliance. We will repeat echocardiogram in order to ensure there has not been any significant change in her LV function. She seems to be about back to baseline. Perhaps she would benefit from an intensification of her diuretic regimen. According to her outpatient chart she is taking furosemide 40 milligrams twice daily. This could easily be increased to 80 milligrams in the morning and 40 milligrams in the evening. Alternatively, she could take an extra dose of metolazone once weekly. She will need to have her electrolytes and renal function monitored in the outpatient setting. (2) Paroxysmal atrial fibrillation: Device interrogation did not reveal any recent atrial fibrillation. She has been continued on amiodarone. She is on systemic anticoagulation, however, it seems that her apixaban is under dosed. Her creatinine appears to be in the normal range. While she is over 80 years old, she likely would benefit from being 5 milligrams twice daily. Increased apixaban 5 milligrams twice daily. (3) History of cardiac pacemaker in situ: She has elevated atrial threshold which are chronic. Most of time she has atrial pacing. No arrhythmias identified. I did activate preference pacing today in the hopes of reducing her chance returning to atrial fibrillation. History of Present Illness Reason for Consultation: Heart failure Requesting Physician: Walt Attending Physician: Ti Godoy History of Present Illness The patient is an 88-year-old woman with a history of tachy-hesham syndrome, persistent atrial fibrillation and possible diastolic heart failure who was admitted for worsening dyspnea. Patient is a snf resident. She is not ambulatory. She spends most of her day in bed or wheelchair. She states that over the past 2-3 days she has noticed some progressively worsening dyspnea. She has chronic lower extremity edema which she cannot say has worsened. She did not have any associated chest discomfort. She has not had dizziness or lightheadedness. She has not report any palpitations. After presentation to the emergency room she was administered intravenous furosemide with good result. He states that her breathing is back to normal currently. He did not endorse symptoms of a cough or recent constitutional symptoms such as fevers or chills. She denies any change in her diet. She has her meals Cooked for her at her facility. She does not use salt. As noted above, the patient suffers from significant lower extremity edema and is poorly mobile. Sleeps in a chair for comfort purposes. She is essentially nonambulatory but can get around in a wheelchair. Allergies Allergy/AdvReac Type Severity Reaction Status Date / Time pollen extracts Allergy Unknown ALLERGY TO Verified 02/25/19 19:20 ALEGRE prednisone Allergy Unknown unknown Verified 02/25/19 19:20 egg AdvReac Unknown DIARRHEA, Verified 02/25/19: NAUSEATED Home Medications Home Medications Medication Instructions Recorded Confirmed Type Orajel 10% 1 applic TOPICAL UD PRN 02/25/19 02/25/19 History acetaminophen [Tylenol Extra 1,000 mg PO Q8 PRN 02/25/19 02/25/19 History Strength] acetaminophen [Tylenol] 650 mg PO Q6H PRN 02/25/19 02/25/19 History amiodarone [Pacerone] 200 mg PO DAILY 02/25/19 02/25/19 History apixaban [Eliquis] 2.5 mg PO BID 02/25/19 02/25/19 History calcium polycarbophil [Fiber-Lax] 625 mg PO DAILY 02/25/19 02/25/19 History duloxetine 60 mg PO DAILY 02/25/19 02/25/19 History duloxetine [Cymbalta] 30 mg PO DAILY 02/25/19 02/25/19 History fentanyl 1 patch TRANSDERMAL Q72H 02/25/19 02/25/19 History fluoride (sodium) [PreviDent 5000 1 applic DENTAL HS 02/25/19 02/25/19 History Booster Plus] furosemide 80 mg PO BID 02/25/19 02/25/19 History hydrocodone-acetaminophen [[place]] 1 tab PO Q6 PRN 02/25/19 02/25/19 History ipratropium-albuterol 3 ml INHALATION Q12 02/25/19 02/25/19 History linaclotide [Linzess] 145 mcg PO DAILY 02/25/19 02/25/19 History metolazone 2.5 mg PO MOTH 02/25/19 02/25/19 History metoprolol succinate 25 mg PO DAILY 02/25/19 02/25/19 History omeprazole 20 mg PO DAILY 02/25/19 02/25/19 History peg 400-propylene glycol [Systane 1 drp OPHTHALMIC (EYE) BID 02/25/19 02/25/19 History (propylene glycol)] polyethylene glycol 3350 [Miralax] 17 g PO Q OTHER DAY 02/25/19 02/25/19 History potassium chloride 40 meq PO .QMOTH 02/25/19 02/25/19 History potassium chloride 40 meq PO BID 02/25/19 02/25/19 History pramoxine [Sarna Sensitive] 1 applic TOPICAL BID 02/25/19 02/25/19 History pregabalin 150 mg PO BID 02/25/19 02/25/19 History ropinirole 2 mg PO BID 02/25/19 02/25/19 History saliva substitute combo no.9 1 ea PO TID 02/25/19 02/25/19 History [Biotene Dry Mouth Oral Rinse] Patient History Medical History Anxiety Breast CA Carcinoma of breast (03/04/11) CHF (congestive heart failure) CHF exacerbation Chronic pain syndrome Deep venous thrombosis (Chronic) DVT (deep venous thrombosis) Elevated INR Elevated troponin Lymphedema Macular degeneration Morbid obesity Osteoarthritis Pacemaker IMPLANTED 03/28 TACHY-HESHAM/SSS LAST PACER CHECK 01/21/18 Paroxysmal atrial fibrillation Pulmonary hypertension MODERATE 40-50MMHG Sleep apnea ? CPAP Vertigo (Acute 03/04/11) Surgical History H/O mastectomy History of appendectomy History of cardiac pacemaker in situ (Chronic) History of carpal tunnel release of both wrists History of difficult intubation 07/07/17= GRADE 2 VIEW, GLIDESCOPE#3, ETT 7.5 AT [facility] History of ERCP 07/07/17= GRADE 2 VIEW, GLIDESCOPE#3, ETT 7.5 AT [facility] History of inferior vena caval filter placement History of total right hip arthroplasty History of total right knee replacement (TKR) Hx of cholecystectomy Hx of eye surgery (Chronic) Social History Preferred Language: Thai Communication Ability: Effective Visual Impairment: No Limitations Hearing Ability: Use of Hearing Aid [employer] Faculty Member Required: No Beliefs That Will Affect Care: None marital status: Current Living Situation: Long-Term Current Living Situation Comment: ASSISTED LIVING FACILITY, [facility] current occupational status: retired Feels Safe at Home: Yes Safety Concerns: Feels Safe At This Time Smoking Status: Never smoker Second Hand Exposure: No ; Hx Alcohol Use: No Hx Substance Use: No Review of Systems Review of Systems: All systems reviewed & are unremarkable except as noted in HPI & below Persistent lower extremity edema. Some neuropathy involving the right heel. She has noticed a change in her voice quality, gravelly. Physical Exam Physical Exam: She is alert and oriented x3. Mood affect appear normal. She answered all questions appropriately. Morbidly obese HEENT: Sclerae are anicteric. Pupils are equal and reactive to light and accommodation. Extraocular movements were intact. Neuro: Cranial nerves intact Neck: Examination of the submandibular region did not reveal any significant lymphadenopathy. Carotids are palpable bilaterally and free of bruits on auscultation. There was no evidence of jugular venous distention but her neck was very redundant.. The thyroid was not enlarged. Lungs: The apices were clear. Normal pulmonary excursion. Normal respiratory effort. No expiratory wheezing. Cardiac: The rhythm was regular. S1 and S2 were normal. There are no murmurs on examination. The PMI was not markedly displaced on palpation. Abdomen: The abdomen was soft and nontender. Obese. Extremities: Patient has bilateral radial pulses that are equal in intensity. There is no evidence cyanosis or clubbing. She has severe lower extremity edema with trophic changes and erythema just above the ankles bilaterally. This ulceration on the right anterior tibial aspect. Skin: There are no rashes noted on examination today. Results & Data Vital Signs (Past 12 Hours) Vital Signs Temp Pulse Pulse Resp BP Pulse Ox 02/26/19 11:41 36.9 C 63 19 119/41 L 95 02/26/19 07:38 37.1 C 62 16 138/45 L 98 02/26/19 07:14 60 18 98 02/26/19 04:44 37.1 C 60 16 109/46 L 100 02/26/19 02:20 108 H 18 97 Laboratory Results Abnormal Lab Results 02/25/19 02/25/19 02/25/19 18:40 18:42 18:42 WBC 6.34 RBC 4.32 Hgb 13.1 Hct 40.8 MCV 94.4 MCH 30.3 MCHC 32.1 RDW Std Deviation 49.6 H RDW Coeff of Carole 14.4 Plt Count 204 MPV 10.3 Immature Gran % (Auto) 0.5 Neut % (Auto) 52.6 Lymph % (Auto) 30.1 [place] % (Auto) 13.2 Eos % (Auto) 3.3 Baso % (Auto) 0.3 Immature Gran # (Auto) 0.03 H Neut # (Auto) 3.33 Lymph # (Auto) 1.91 [place]hen[place] # (Auto) 0.84 H Eos # (Auto) 0.21 Baso # (Auto) 0.02 PT 10.9 INR 1.1 APTT 26.8 PTT Ratio 1.0 VBG pH VBG pCO2 VBG pO2 VBG HCO3 VBG O2 Saturation VBG Base Excess Barometric Pressure Sodium Potassium Chloride Carbon Dioxide Anion Gap BUN Creatinine Est Cr Clr Drug Dosing Est GFR ( Amer) Est GFR (Non-Af Amer) BUN/Creatinine Ratio Glucose Calcium Magnesium Total Bilirubin AST ALT Alkaline Phosphatase Troponin I NT-Pro-B Natriuret Pep Total Protein Albumin Globulin Albumin/Globulin Ratio Urine Color Urine Appearance Urine pH Ur Specific [place] Urine Protein Urine Glucose (UA) Urine Ketones Urine Blood Urine Nitrite Urine Bilirubin Urine Urobilinogen Ur Leukocyte Esterase Urine WBC (Auto) Urine RBC (Auto) U Hyaline Cast (Auto) U Epithel Cells (Auto) Urine Bacteria (Auto) Influenza Type A (PCR) Neg for Influ A Influenza Type B (PCR) Neg for Influ B 02/25/19 02/25/19 02/25/19 18:42 18:42 20:20 WBC RBC Hgb Hct MCV MCH MCHC RDW Std Deviation RDW Coeff of Carole Plt Count MPV Immature Gran % (Auto) Neut % (Auto) Lymph % (Auto) [place] % (Auto) Eos % (Auto) Baso % (Auto) Immature Gran # (Auto) Neut # (Auto) Lymph # (Auto) [place] # (Auto) Eos # (Auto) Baso # (Auto) PT INR APTT PTT Ratio VBG pH 7.35 L VBG pCO2 61 H VBG pO2 36 VBG HCO3 33 VBG O2 Saturation 67.0 VBG Base Excess 5.8 Barometric Pressure 728.3 Sodium 141 Potassium 3.9 Chloride 102 Carbon Dioxide 34 H Anion Gap 5.0 BUN 21 H Creatinine 1.24 H Est Cr Clr Drug Dosing 44.3 Est GFR ( Amer) 45.5 Est GFR (Non-Af Amer) 39.3 BUN/Creatinine Ratio 16.8 Glucose 162 H Calcium 8.7 Magnesium 2.3 Total Bilirubin 0.6 AST 13 L ALT 14 Alkaline Phosphatase 106 Troponin I < 0.015 NT-Pro-B Natriuret Pep 1404 Total Protein 8.0 Albumin 3.1 L Globulin 4.9 H Albumin/Globulin Ratio 0.6 L Urine Color Yellow Urine Appearance Clear Urine pH 7.0 Ur Specific [place] 1.010 Urine Protein Negative Urine Glucose (UA) Negative Urine Ketones Negative Urine Blood Negative Urine Nitrite Negative Urine Bilirubin Negative Urine Urobilinogen Negative Ur Leukocyte Esterase 1+ H Urine WBC (Auto) 5-10 H Urine RBC (Auto) 0-4 U Hyaline Cast (Auto) 1-5 U Epithel Cells (Auto) >30 H Urine Bacteria (Auto) Negative Influenza Type A (PCR) Influenza Type B (PCR) 02/26/19 05:29 WBC RBC Hgb Hct MCV MCH MCHC RDW Std Deviation RDW Coeff of Carole Plt Count MPV Immature Gran % (Auto) Neut % (Auto) Lymph % (Auto) [place] % (Auto) Eos % (Auto) Baso % (Auto) Immature Gran # (Auto) Neut # (Auto) Lymph # (Auto) [place] # (Auto) Eos # (Auto) Baso # (Auto) PT INR APTT PTT Ratio VBG pH VBG pCO2 VBG pO2 VBG HCO3 VBG O2 Saturation VBG Base Excess Barometric Pressure Sodium 142 Potassium 3.9 Chloride 103 Carbon Dioxide 35 H Anion Gap 4.0 BUN 25 H Creatinine 1.25 H Est Cr Clr Drug Dosing 44.9 Est GFR ( Amer) 45.1 Est GFR (Non-Af Amer) 38.9 BUN/Creatinine Ratio 20.1 H Glucose 127 H Calcium 8.7 Magnesium 2.2 Total Bilirubin AST ALT Alkaline Phosphatase Troponin I NT-Pro-B Natriuret Pep Total Protein Albumin Globulin Albumin/Globulin Ratio Urine Color Urine Appearance Urine pH Ur Specific [place] Urine Protein Urine Glucose (UA) Urine Ketones Urine Blood Urine Nitrite Urine Bilirubin Urine Urobilinogen Ur Leukocyte Esterase Urine WBC (Auto) Urine RBC (Auto) U Hyaline Cast (Auto) U Epithel Cells (Auto) Urine Bacteria (Auto) Influenza Type A (PCR) Influenza Type B (PCR) Diagnostic Findings Chest x-ray obtained at the time admission revealed pulmonary edema. Also cardiomegaly. Performed a complete device interrogation which did not reveal any evidence of recent arrhythmia. Mostly atrial pacing. Blunted rate histograms. Elevated atrial threshold. ECG Additional Comments: Paced atrial rhythm PG Care Time/CCT Total # of Minutes Spent Total Time Spent with Patient: Total time spent is greater than 50% in coordination of care (as documented) at patient's floor/unit and/or counseling patient: (1) CHF (congestive heart failure) Heart failure chronicity: unspecified Heart failure type: unspecified Qualified Code(s): I50.9 - Heart failure, unspecified
[2019-02-26] MEDS: ARTIFICIAL TEARS OP SCH ×2 (13:18→19:45)
[2019-02-26] MEDS: MICONAZOLE NITRATE POWDER 43 GM EXT SCH ×2 (13:18→19:45)
[2019-02-26] MEDS: APIXABAN 5 MG TABLET PO SCH (19:45)
--- NOTE | 2019-02-26 22:41 | Hospitalist Progress Note ---
Date of Service February 26, 2019 Assessment & Plan (1) CHF (congestive heart failure): 88 y/o F Hx PAF, CHF, CKD III, morbid obesity, pulmonary HTN, AV pacer, chronic pain. She resides in a nursing facility and was sent to the hospital due to progressive SOB. She denies CP, a productive cough or fevers. Per family, edema in her lower extremities appears more prominent. Initial labs are unremarkable. A CXR is consistent with CHF. 1) CHF exacerbation - The patient appears to be improving with IV diuretics. will continue to order this and will monitor patient. - Metolazone daily will be added 2) Tachy - hesham syndrome, PAF - pacer - she is atrially paced only on admission - this is appropriate per recent EPS notes. Cont Amio, Metoprolol, apixaban 3) History of DVT - Heparin will be provided in hospital 4) MITCH - CPAP provided 5) LE edema - It is erythematous, but is not tender to palpation. will continue to monitor for now. 6) Chronic pain - cont Fentanyl, [place] PRN Full code - Heparin prophylaxis If patient continues to improve, may consider discharge in AM. Subjective Pleasant 88 yo female, she reports she is breathing better. She still is not at baseline. Review of Systems Review of Systems: All systems reviewed & are unremarkable except as noted in HPI & below Physical Exam Physical Exam: General: Obese, elderly F, AAO x 3, no distress ENT: No erythema or exudates, no thrush Eyes: DESI, EOMI Head and neck: Normocephalic, atraumatic - cannot assess JVD Chest/heart: Nontender, S1,2, RRR, faint Lungs: rales at base bilaterally. No wheezing Abdomen: Nontender, nondistended, BS+ Neuro: AAO x 3, speech is clear, no unilateral weakness or loss of sensation, c oordination intact Musculoskeletal: 3++ BL LE edema Skin: LE skin is erythematous without warmth - R > L Extremities: + edema as above Results & Data Vital Signs (Past 12 Hours) Vital Signs Temp Pulse Pulse Resp BP Pulse Ox 02/26/19 21:05 62 23 99 02/26/19 20:23 36.9 C 63 16 109/34 L 100 02/26/19 19:13 63 18 99 02/26/19 15:29 37.0 C 63 16 108/35 L 95 01/03/20 11:41 36.9 C 63 19 119/41 L 95 PG Care Time/CCT Total # of Minutes Spent Total Time Spent with Patient: Total time spent is greater than 50% in coordination of care (as documented) at patient's floor/unit and/or counseling patient: (1) CHF (congestive heart failure) Heart failure chronicity: unspecified Heart failure type: unspecified Qualified Code(s): I50.9 - Heart failure, unspecified
[2019-02-27] MEDS: FUROSEMIDE 60 MG in SYRINGE 0 ML IV SCH ×3 (00:07→14:24)
[2019-02-27] MEDS: CHECK FENTANYL PATCH PLACEMENT SCH ×2 (00:07→09:38)
[2019-02-27] MEDS: ALBUT/IPRATROP 3MG/0.5MG NEB 3 ML VIAL INH SCH (07:00)
[2019-02-27 07:06] VITALS: TEMP 97.9
--- NOTE | 2019-02-27 07:26 | Electrocardiogram Report ---
Test Reason : Blood Pressure : / mmHG Vent. Rate : 069 BPM Atrial Rate : 234 BPM P-R Int : 298 ms QRS Dur : 118 ms QT Int : 456 ms P-R-T Axes : 000 -42 062 degrees QTc Int : 488 ms Atrial-paced rhythm with prolonged AV conduction Left axis deviation Incomplete left bundle block Abnormal ECG Confirmed by Curtis Soto ([id number]) on 02/27/2019 7:25:57 AM Referred By: REFERRED SELF Confirmed By:Javier Soto
[2019-02-27] MEDS: MICONAZOLE NITRATE POWDER 43 GM EXT SCH (09:03)
[2019-02-27] MEDS: metOLazone 2.5 MG TABLET PO SCH (09:03)
[2019-02-27] MEDS: PANTOprazole 40 MG TAB PO SCH (09:03)
[2019-02-27] MEDS: ROPINIROLE HCL 1 MG TABLET PO SCH (09:03)
[2019-02-27] MEDS: POTASSIUM CHLORIDE 20 MEQ TABCR PO SCH (09:04)
[2019-02-27] MEDS: DULOXETINE HCL 60 MG CAP PO SCH (09:04)
[2019-02-27] MEDS: POLYETHYLENE (MIRALAX) 17 GM PACK PO SCH (09:04)
[2019-02-27] MEDS: DULOXETINE HCL 30 MG CAP PO SCH (09:04)
[2019-02-27] MEDS: METOPROLOL SUCC 25MG EXT REL TAB PO SCH (09:04)
[2019-02-27] MEDS: PREGABALIN 150 MG CAP PO SCH (09:08)
[2019-02-27] MEDS: APIXABAN 5 MG TABLET PO SCH (09:50)
[2019-02-27 13:03] LABS: BUN Creatinine Ratio 22.4 (10-20); Calcium 9.1 mg/dl (8.5-10.1); Creatinine Clr Calc Pharmacy 39.2 ml/min; Est GFR (African American) 38.3; Est GFR (Non-African American) 33.1; Potassium 3.4 mmol/L (3.5-5.1)
[2019-02-27] MEDS: ARTIFICIAL TEARS OP SCH (14:24)
[2019-02-27 14:55] VITALS: BP 149/68; PULSE 89; O2SAT 97
[2019-02-28] MEDS ORDERED: fentaNYL 25 MCG/HR TDSY TD SCH (09:00)
--- NOTE | 2019-03-04 22:42 | Discharge Summary ---
Date of Service February 27, 2019 Admission HPI Per Admitting Provider 88 y/o F Hx PAF, CHF, CKD III, morbid obesity, pulmonary HTN, AV pacer, chronic pain. She resides in a nursing facility and was sent to the hospital due to progressive SOB. She denies CP, a productive cough or fevers. Per family, edema in her lower extremities appears more prominent. Initial labs are unremarkable. A CXR is consistent with CHF. PMH: 1) PAF - may have been a loan episode in 2018 where she was cardioverted - anticoagulation with Apixaban 2) AV pacer for tachy/hesham syndrome 3) CHF - per echo, this appears to be mostly R heart failure although her L EF is borderline at 50%. Diastolic function could not be accurately assessed as the study was limited by the pt's habitus. 4) Breast CA 2011 5) Chronic LE edema and cellulitis 6) Moderate pulmonary HTN 7) MITCH 8) CKD III 9) History of DVT - possibly post-op 10) Osteoporosis and chronic back pain - Narcotic dependent Surgical: 1) Cholecystectomy 2) R TKA 3) R SARAH BETH 4) IVC filter 5) R mastectomy 6) BL carpal release Social: Does not drink or smoke - [place] resident Family: Noncontributory due to pt age Principal Diagnosis CHF exacerbation Discharge Exam General: Obese, elderly F, AAO x 3, no distress ENT: No erythema or exudates, no thrush Eyes: DESI, EOMI Head and neck: Normocephalic, atraumatic - cannot assess JVD Chest/heart: Nontender, S1,2, RRR, faint Lungs: rales at base bilaterally. No wheezing Abdomen: Nontender, nondistended, BS+ Neuro: AAO x 3, speech is clear, no unilateral weakness or loss of sensation, coordination intact Musculoskeletal: 3++ BL LE edema Skin: LE skin is erythematous without warmth - R > L Extremities: + edema as above Discharge Data Allergies Allergy/AdvReac Type Severity Reaction Status Date / Time pollen extracts Allergy Unknown ALLERGY TO Verified 02/25/19 19:20 ALEGRE prednisone Allergy Unknown unknown Verified 02/25/19 19:20 egg AdvReac Unknown DIARRHEA, Verified 02/25/19 19:20 NAUSEATED Consultations 02/25/19 19:25 ED Decision to Admit Stat 02/25/19 21:32 Consult Cardiology Routine Hospital Course (1) CHF (congestive heart failure): 88 y/o F Hx PAF, CHF, CKD III, morbid obesity, pulmonary HTN, AV pacer, chronic pain. She resides in a nursing facility and was sent to the hospital due to progressive SOB. She denies CP, a productive cough or fevers. Per family, edema in her lower extremities appears more prominent. Initial labs are unremarkable. A CXR is consistent with CHF. 1) CHF exacerbation - The patient appears to have improved with IV diuretics. - Metolazone daily will be added 2) Tachy - hesham syndrome, PAF - pacer - she is atrially paced only on admission - this is appropriate per recent EPS notes. Cont Amio, Metoprolol, apixaban 3) History of DVT - Heparin will be provided in hospital 4) MITCH - CPAP provided 5) LE edema - It is erythematous, but is not tender to palpation. did not appear to be infected. 6) Chronic pain - cont Fentanyl, Show Low PRN Full code - Heparin prophylaxis Total Time Total Time Spent Total Time Spent (In Minutes): 32 Total Time Includes: Examination of the Patient, Discharge Planning and Medication Reconciliation Discharge Plan Discharge Items Patient Disposition: Transfer Prison Fac Reason For Visit: CHF EXACERBATION Discharge Diagnosis: CHF exacerbation Activity: Resume your previous activity Non-emergency contact: Primary Care Provider Call non-emergency contact if: you have any medication questions Follow-up/Referrals: Paul Claudio [Primary Care Provider] - Diet: Heart Healthy Addtl Attending Provider Instructions: Check BMP in 5 days. Hold evening dose of lasix tonight (02/27/18) Resume the next day. Call 911 and go to the Emergency Room if: * You have tightness or pain in your chest that does not go away with rest or Nitroglycerin * You are very short of breath even with rest Call your doctor if any of the following symptoms or problems start or get worse: * Shortness of breath or difficulty breathing * Wake up at night short of breath * Chest pain * Cough * Swelling of your hands, fee, or legs * More fatigued or tired with your normal activity * Palpitations - sudden fast heart beats WEIGHT * Weigh yourself every morning after using the bathroom. * Use the same scale. * Wear the same amount of clothing. * Write your weight down on your chart. * Call your doctor if you gain more than 2-3 pounds in 1-2 days. MEDICATIONS * Use this discharge instruction sheet for instructions. * Take your medications at the time your doctor ordered. * Do not skip a dose of your medicines. * If you miss a dose of medicine, take as soon as possible, but DO NOT DOUBLE A DOSE. * Read your medicine information when you get home. * Know all of the side effects of your medicine. * Call your doctor's office if you have any side effects. * Be sure all of your doctors know what medicine and herbs you take (including cold, flu, and herbal medicine). * Pain Medicine: If you do not get relief from your pain, please call your doctor for help. Take the following with you to your follow-up doctor appointments: * Weight Chart * Medication List * List of questions Do not drink excessive alcohol, beer or wine. Pending Studies at Discharge: No Stand-Alone Forms: My [facility] Skilled Items Patient informed of condition?: Yes DNR: No Discharge Level of Care: Skilled Communicable Disease: No Discharge Prognosis: Stable Lines: None Urinary Catheter: No Medications and DC Order Prescriptions: New Eliquis 5 mg Tablet 5 mg PO BID Qty: 0 RF: 0 Continued furosemide 40 mg tablet 80 mg PO BID RF: 0 amiodarone [Pacerone] 200 mg tablet 200 mg PO DAILY RF: 0 potassium chloride 10 mEq tablet extended release 40 meq PO BID RF: 0 calcium polycarbophil [Fiber-Lax] 625 mg Tablet 625 mg PO DAILY RF: 0 duloxetine 60 mg capsule,delayed release(DR/EC) 60 mg PO DAILY RF: 0 metolazone 2.5 mg tablet 2.5 mg PO MOTH RF: 0 potassium chloride 10 mEq Capsule, Extended Release 40 meq PO .QMOTH RF: 0 ipratropium-albuterol 0.5 mg-3 mg(2.5 mg base)/3 mL Solution For Nebulization 3 ml INHALATION Q12 RF: 0 polyethylene glycol 3350 [Miralax] 17 gram Powder In Packet 17 g PO Q OTHER DAY RF: 0 hydrocodone-acetaminophen [Show Low] 5-325 mg tablet 1 tab PO Q6 PRN (Reason: PAIN 7-10) RF: 0 acetaminophen [Tylenol Extra Strength] 500 mg Tablet 1,000 mg PO Q8 PRN (Reason: pain 4-6) RF: 0 ropinirole 2 mg Tablet 2 mg PO BID RF: 0 Sarna Sensitive 1 % Lotion 1 applic TOPICAL BID RF: 0 metoprolol succinate 25 mg Tablet Extended Release 24 Hr 25 mg PO DAILY RF: 0 fentanyl 25 mcg/hr Patch 72 Hour 1 patch TRANSDERMAL Q72H RF: 0 Systane (propylene glycol) 0.4-0.3 % Drops 1 drp OPHTHALMIC (EYE) BID RF: 0 duloxetine [Cymbalta] 30 mg capsule,delayed release(DR/EC) 30 mg PO DAILY RF: 0 pregabalin 150 mg Capsule 150 mg PO BID RF: 0 PreviDent 5000 Booster Plus 1.1 % Paste 1 applic DENTAL HS RF: 0 acetaminophen [Tylenol] 325 mg Capsule 650 mg PO Q6H PRN (Reason: TEMP>101/PAIN) RF: 0 Linzess 145 mcg capsule 145 mcg PO DAILY RF: 0 Biotene Dry Mouth Oral Rinse Mouthwash 1 ea PO TID RF: 0 omeprazole 20 mg Tablet,Disintegrat, Delay Rel 20 mg PO DAILY RF: 0 Orajel 10% 1 applic topical UD PRN (Reason: mouth discomfort) RF: 0 Discontinued Eliquis 2.5 mg tablet 2.5 mg PO BID RF: 0 Discharge Orders: Discharge Order (Routine); Ordered 02/27/19 Ordered By: Ti Angela/Other Patient Handouts: Heart Failure, Heart Failure Warning Signs Admission Data Admit Date/Time: 02/25/19 21:21 Attending Provider: Ti Godoy Admit Provider: Pritesh Moyer Primary Care Provider: Paul Claudio Other Providers: Pritesh Moyer ; Tony Up ; [place], Other Interventions: Discharge Summary Assessment (RN) Last Done: 02/27/19 15:50 DC Date/Time DO NOT enter until pt leaves facility: 02/27/19 16:20
== END 2019-02-27 16:20 ==
LOC: EDSEX → ED 17:47 → 2E 17:47 → SUATTDRO 21:21 → 2E 22:21

== ENCOUNTER 2020-12-03 01:48 | Observation (INO) ==
--- NOTE | 2020-12-03 02:04 | Emergency Department Note ---
History of Present Illness General Chief Complaint: Shortness of Breath/Dyspnea Stated Complaint: Respiratory Distress Time Seen by Provider: 12/03/20 01:51 History of Present Illness Provider Complaint: shortness of breath Onset (ago): day(s) (1) Severity: severe Current Pain Intensity: 0 Relieved By: + oxygen, + upright position and + medication (SL NTG) Exacerbated By: + exertion Known history of: COPD and congestive heart failure Associated symptoms: + chest pain; no fever, no paresthesias, no nausea/vomiting, no abdominal pain, no rash, no chest congestion, no dizziness or no lightheadedness Treatment prior to arrival: oxygen and nitroglycerin Related Data Home oxygen amount: 2 liters Home Medications Medication Instructions Recorded Confirmed Type acetaminophen 325 mg capsule 650 mg PO Q6H PRN 02/25/19 12/03/20 History (Tylenol) acetaminophen 500 mg tablet 1,000 mg PO Q8 PRN 02/25/19 12/03/20 History (Tylenol Extra Strength) amiodarone 200 mg tablet (Pacerone) 200 mg PO DAILY 02/25/19 12/03/20 History fentanyl 25 mcg/hr transdermal 1 patch TRANSDERMAL Q72H 02/25/19 12/03/20 History patch fluoride (sodium) 1.1 % dental 1 applic DENTAL HS 02/25/19 12/03/20 History paste (PreviDent 5000 Booster Plus) ipratropium 0.5 mg-albuterol 3 mg 3 ml INHALATION TID 02/25/19 12/03/20 History (2.5 mg base)/3 mL nebulization soln metoprolol succinate 25 mg 25 mg PO DAILY 02/25/19 12/03/20 History tablet,extended release 24 hr pregabalin 150 mg capsule 150 mg PO BID 02/25/19 12/03/20 History saliva substitute combo no.9 1 ea PO TID 02/25/19 12/03/20 History (Biotene Dry Mouth Oral Rinse) apixaban 5 mg tablet (Eliquis) 5 mg PO BID #0 tab 02/27/19 12/03/20 Rx bumetanide 2 mg tablet 4 mg PO DAILY tab 07/12/19 12/03/20 History nitroglycerin 0.4 mg sublingual 0.4 mg SL Q5M PRN 07/12/19 12/03/20 History tablet (Nitrostat) calcium carbonate [Tums] 1 tab PO QID PRN 07/03/20 12/03/20 History diclofenac sodium 1 % topical gel 0 g TOPICAL BID g 07/03/20 12/03/20 History (Voltaren) magnesium hydroxide 2,400 mg/10 mL 30 ml PO DAILY PRN ml 07/03/20 12/03/20 History oral suspension (Milk Of Magnesia Concentrated) metolazone 2.5 mg tablet 2.5 mg PO DAILY tab 07/03/20 12/03/20 History omeprazole 40 mg capsule,delayed 40 mg PO DAILY 07/03/20 12/03/20 History release potassium chloride 20 mEq 40 meq PO QID tab 07/03/20 12/03/20 History tablet,extended release propylene glycol 1 %-glycerin 0.3 1 drp OPHTHALMIC (EYE) BID PRN 07/03/20 12/03/20 History % eye drops psyllium husk [Fiber (psyllium 1 cap PO DAILY 07/03/20 12/03/20 History husk)] ropinirole 2 mg tablet 2 mg PO DAILY tab 07/03/20 12/03/20 History ropinirole 4 mg tablet 4 mg PO HS tab 07/03/20 12/03/20 History sennosides 8.6 mg capsule (senna) 8.6 mg PO BID 07/03/20 12/03/20 History sodium phosphates 19 gram-7 118 ml NE DAILY PRN 07/03/20 12/03/20 History gram/118 mL enema bisacodyl 10 mg rectal suppository 10 mg NE DAILY PRN 10/03/20 12/03/20 History (Dulcolax (bisacodyl)) duloxetine 60 mg capsule,delayed 120 mg PO DAILY cap 10/03/20 12/03/20 History release Proheal 30 ml PO DAILY 12/03/20 12/03/20 History artificial tears solution eye drops 1 drp OPHTHALMIC (EYE) BID 12/03/20 12/03/20 History benzonatate 100 mg capsule 200 mg PO TID 12/03/20 12/03/20 History (Fredrick Parr) calcium carbonate 500 mg calcium 500 mg PO QID PRN 12/03/20 12/03/20 History (1,250 mg) chewable tablet guaifenesin 600 mg tablet, 600 mg PO DAILY 12/03/20 12/03/20 History extended release 12 hr (Mucinex) prednisone 20 mg tablet 40 mg PO .DAILY FOR 5 DAYS 12/03/20 12/03/20 History vitamin B complex 1 cap PO DAILY 12/03/20 12/03/20 History Allergies Allergy/AdvReac Type Severity Reaction Status Date / Time pollen extracts Allergy Unknown ALLERGY TO Verified 12/03/20 02:45 ALEGRE prednisone Allergy Unknown unknown Verified 12/03/20 02:45 egg AdvReac Unknown DIARRHEA, Verified 12/03/20 02:45 NAUSEATED Past Med/Surg History Medical History Anxiety Breast CA Carcinoma of breast (03/04/11) CHF (congestive heart failure) CHF exacerbation Chronic pain syndrome Deep venous thrombosis DVT (deep venous thrombosis) Elevated INR Elevated troponin Lymphedema Macular degeneration Mixed conductive and sensorineural hearing loss of left ear with restricted hearing of right ear Morbid obesity Osteoarthritis Pacemaker IMPLANTED 03/28 TACHY-MARVA/SSS LAST PACER CHECK 01/21/18 Paroxysmal atrial fibrillation Pulmonary hypertension MODERATE 40-50MMHG Sensorineural hearing loss of both ears Sleep apnea ? CPAP Vertigo (03/04/11) Surgical History H/O mastectomy History of appendectomy History of cardiac pacemaker in situ History of carpal tunnel release of both wrists History of difficult intubation 07/07/17= GRADE 2 VIEW, GLIDESCOPE#3, ETT 7.5 AT [facility] History of ERCP 07/07/17= GRADE 2 VIEW, GLIDESCOPE#3, ETT 7.5 AT [facility] History of inferior vena caval filter placement History of total right hip arthroplasty History of total right knee replacement (TKR) Hx of cholecystectomy Hx of eye surgery S/P myringotomy with insertion of tube RIGHT Family History Other Asthma Cancer Hearing loss Heart disease Hypertension No family history of adverse response to anesthesia No family history of bleeding disorder Stroke Social History Smoking Status: Never smoker Second Hand Exposure: No; Hx Alcohol Use: No Hx Substance Use: No Preferred Language: [place] Communication Ability: Effective Visual Impairment: No Limitations Hearing Ability: Use of Hearing Aid Staff Trainer Required: No Beliefs That Will Affect Care: None marital status: Current Living Situation: Custodial Current Living Situation Comment: ASSISTED LIVING FACILITY, [facility] current occupational status: retired Feels Safe at Home: Yes Assistive Devices: Oxygen - Continuous Review of Systems A total of 10 systems reviewed and were otherwise negative Physical Exam Vital Signs: Vital Signs - 24 hr 12/03/20 02:01 12/03/20 02:33 12/03/20 02:34 Temperature 36.7 C Temperature Source Oral Pulse Rate 79 Respiratory Rate 20 Respiratory Effort / Characteristics Short of Breath Non-Labored Blood Pressure 129/70 Blood Pressure Belkis n 89 Blood Pressure Pos ition Lying Pulse Oximetry 98 99 Oxygen Delivery Me thod Nasal Cannula Nasal Cannula Nasal Cannula Oxygen Flow Rate 6 4 6 Sepsis Recent Feve r Within 48 Hours No Sepsis New/Unexpla ined Change in Men mustapha Status No Sepsis Action Take n by Nursing No Action Required Oxygen Flow Rate - Titration 4 Pulse Oximetry Pos t Tiitration 100 Physical Exam: Physical Exam GENERAL: She is oriented to person, place, and time. She appears well-developed and well-nourished. She does not appear distressed. HENT: Exam performed. -Head: Normocephalic and atraumatic. -Right Ear: External ear normal. No mastoid tenderness. -Left Ear: External ear normal. No mastoid tenderness. -Mouth/Throat: The oropharynx is clear and moist. No trismus in the jaw. No dental abscesses or uvula swelling. No oropharyngeal exudate or tonsillar abscesses. EYES: Conjunctivae and EOM are normal. Pupils are equal, round, and reactive to light. Right eye exhibits no discharge. Left eye exhibits no discharge. No scleral icterus. NECK: Normal range of motion. Neck supple. No JVD present. No spinous process tenderness present. No carotid bruit present. No rigidity. No tracheal deviation and normal range of motion present. No Brudzinski's sign and no Kernig's sign noted. CV: Normal rate, regular rhythm, normal heart sounds and intact distal pulses. There is no peripheral edema. Palpable radial pulses bue. PULM/CHEST: Rhonchi bilaterally. Inspiratory rales at the bases. ABD: The abdomen is soft. Bowel sounds are normal. She has no distension. No mass is present. There is no tenderness. There is no rebound, no guarding, no Navarrete's sign and no tenderness at McBurney's point. Rovsig negative MUSC/SKEL: Normal range of motion. There is no peripheral edema, tenderness or deformity. LYMPH: No cervical adenopathy. NEURO: She is alert and oriented to person, place, and time. She has normal strength. No cranial nerve deficit or sensory deficit. Coordination and gait normal. GCS eye subscore is 4. GCS verbal subscore is 5. GCS motor subscore is 6. Cerebellar tests wnl. SKIN: Skin is warm and dry. She is not diaphoretic. PSYCH: She has a normal mood and affect. Behavior is normal. Judgment and thought content normal. Course Course 0151: The patient was evaluated in room A3. A complete history and physical exam was performed Cardiac monitoring: An order was placed for continuous cardiac monitoring. The monitor shows a rate of 80 with paced rhythm 0317: Vital signs stable on supplemental oxygen via nasal cannula. Patient is DNR/DNI. Labs are within normal limits. Imaging shows left lower lobe infiltrate. Patient will be treated with cefepime and vancomycin and plan to be admitted to the [facility] team. Discussed with Dr. Martinez and she will evaluate the patient. Medical Decision Making Laboratory Data Result diagrams: 12/03/20 02:24 12/03/20 02:24 Lab Results 12/03/20 12/03/20 12/03/20 Range/Units 02:24 02:24 02:24 WBC (4.8-10.8) K/uL RBC (4.2-5.4) M/uL Hgb (12.0-16.0) g/dL Hct (37-47) % MCV (80-100) fL MCH (25-34) pg MCHC (32-36) g/dL RDW Std Deviation (36.4-46.3) fL RDW Coeff of Carole (11.5-14.5) % Plt Count (130-400) K/uL MPV (7.4-10.4) fL Immature Gran % (Auto) % Neut % (Auto) % Lymph % (Auto) % [place] % (Auto) % Eos % (Auto) % Baso % (Auto) % Neut # (Auto) (1.4-6.5) K/uL Lymph # (Auto) (1.2-3.4) K/uL [place] # (Auto) (0.11-0.59) K/uL Eos # (Auto) (0-0.5) K/uL Baso # (Auto) (0-0.2) K/uL Immature Gran # (Auto) (0.00-0.02) K/uL PT 11.2 (9.0-12.0) Seconds INR 1.1 (0.9-1.1) APTT 23.6 (21.0-31.0) Seconds PTT Ratio 0.9 VBG pH 7.42 H (7.36-7.41) VBG pCO2 49 (38-50) mmHg VBG pO2 30 mmHg VBG HCO3 31 mmol/L VBG O2 Saturation < 60.0 % VBG Base Excess 5.4 mEq/L Sodium 140 (136-145) mmol/L Potassium 4.3 (3.5-5.1) mmol/L Chloride 101 (98-107) mmol/L Carbon Dioxide 33 H (21-32) mmol/L Anion Gap 6.0 (3-11) BUN 44 H (7-18) mg/dl Creatinine 1.62 H (0.6-1.2) mg/dl Est Cr Clr Drug Dosing Not Reportable Est GFR ( Amer) 32.5 ml/min Est GFR (Non-Af Amer) 28.1 ml/min BUN/Creatinine Ratio 27.2 H (10-20) Glucose 165 H (70-99) mg/dl Calcium 8.8 (8.5-10.1) mg/dl Magnesium 2.0 (1.8-2.4) mg/dl Troponin I < 0.015 (0-0.045) ng/ml NT-Pro-B Natriuret Pep 1276 (0-1800) pg/ml Lipase 82 (73-393) U/L COVID-19 Eval Order 12/03/20 12/03/20 Range/Units 02:24 02:24 WBC 9.34 (4.8-10.8) K/uL RBC 4.16 L (4.2-5.4) M/uL Hgb 12.4 (12.0-16.0) g/dL Hct 37.7 (37-47) % MCV 90.6 (80-100) fL MCH 29.8 (25-34) pg MCHC 32.9 (32-36) g/dL RDW Std Deviation 47.0 H (36.4-46.3) fL RDW Coeff of Carole 14.3 (11.5-14.5) % Plt Count 227 (130-400) K/uL MPV 10.5 H (7.4-10.4) fL Immature Gran % (Auto) 1.3 % Neut % (Auto) 70.9 % Lymph % (Auto) 16.9 % [place] % (Auto) 10.8 % Eos % (Auto) 0.0 % Baso % (Auto) 0.1 % Neut # (Auto) 6.62 H (1.4-6.5) K/uL Lymph # (Auto) 1.58 (1.2-3.4) K/uL [place] # (Auto) 1.01 H (0.11-0.59) K/uL Eos # (Auto) 0.00 (0-0.5) K/uL Baso # (Auto) 0.01 (0-0.2) K/uL Immature Gran # (Auto) 0.12 H (0.00-0.02) K/uL PT (9.0-12.0) Seconds INR (0.9-1.1) APTT (21.0-31.0) Seconds PTT Ratio VBG pH (7.36-7.41) VBG pCO2 (38-50) mmHg VBG pO2 mmHg VBG HCO3 mmol/L VBG O2 Saturation % VBG Base Excess mEq/L Sodium (136-145) mmol/L Potassium (3.5-5.1) mmol/L Chloride (98-107) mmol/L Carbon Dioxide (21-32) mmol/L Anion Gap (3-11) BUN (7-18) mg/dl Creatinine (0.6-1.2) mg/dl Est Cr Clr Drug Dosing Est GFR ( Amer) ml/min Est GFR (Non-Af Amer) ml/min BUN/Creatinine Ratio (10-20) Glucose (70-99) mg/dl Calcium (8.5-10.1) mg/dl Magnesium (1.8-2.4) mg/dl Troponin I (0-0.045) ng/ml NT-Pro-B Natriuret Pep (0-1800) pg/ml Lipase (73-393) U/L COVID-19 Eval Order Covid19 at [facility] Imaging Data My Impression: Left lower lobe infiltrate ECG Data Interpretation: Paced rhythm with a rate of 76. NE 310 QRS [address] elevation or ST depression. [facility] Narrative 0151: The patient was evaluated in room A3. A complete history and physical exam was performed Cardiac monitoring: An order was placed for continuous cardiac monitoring. The monitor shows a rate of 80 with paced rhythm 0317: Vital signs stable on supplemental oxygen via nasal cannula. Patient is DNR/DNI. Labs are within normal limits. Imaging shows left lower lobe infiltrate. Patient will be treated with cefepime and vancomycin and plan to be admitted to the [facility] hospitalist team. Discussed with Dr. Martinez and she will evaluate the patient. Impression & Plan Pneumonia Discharge Plan Visit Data Chief Complaint: Shortness of Breath/Dyspnea Stated Complaint: Respiratory Distress Discharge Problem: Pneumonia Patient Disposition: Being Evaluated by Hospitalist Forms Stand Alone Forms: My [facility] Prescriptions Prescriptions: No Action bumetanide 2 mg tablet 4 mg PO DAILY RF: 0 nitroglycerin [Nitrostat] 0.4 mg tablet, sublingual 0.4 mg SL Q5M PRN (Reason: Chest Pain) RF: 0 magnesium hydroxide [Milk Of Magnesia Concentrated] 2,400 mg/10 mL suspension 30 ml PO DAILY PRN (Reason: Constipation) RF: 0 propylene glycol-glycerin 1-0.3 % drops 1 drp ophthalmic (eye) BID PRN (Reason: Dry Eyes) RF: 0 sodium phosphates 19-7 gram/118 mL enema 118 ml NE DAILY PRN (Reason: Constipation) RF: 0 psyllium husk 1 cap PO DAILY RF: 0 omeprazole 40 mg capsule,delayed release(DR/EC) 40 mg PO DAILY RF: 0 potassium chloride 20 mEq tablet extended release 40 meq PO QID RF: 0 ropinirole 4 mg tablet 4 mg PO HS RF: 0 senna 8.6 mg capsule 8.6 mg PO BID RF: 0 calcium carbonate 1 tab PO QID PRN (Reason: Indigestion) RF: 0 diclofenac sodium [Voltaren] 1 % gel 0 g topical BID RF: 0 bisacodyl [Dulcolax (bisacodyl)] 10 mg suppository 10 mg NE DAILY PRN (Reason: Constipation) RF: 0 amiodarone [Pacerone] 200 mg tablet 200 mg PO DAILY RF: 0 ipratropium-albuterol 0.5 mg-3 mg(2.5 mg base)/3 mL Solution For Nebulization 3 ml INHALATION TID RF: 0 acetaminophen [Tylenol Extra Strength] 500 mg Tablet 1,000 mg PO Q8 PRN (Reason: pain 4-6) RF: 0 metoprolol succinate 25 mg Tablet Extended Release 24 Hr 25 mg PO DAILY RF: 0 fentanyl 25 mcg/hr Patch 72 Hour 1 patch TRANSDERMAL Q72H RF: 0 pregabalin 150 mg Capsule 150 mg PO BID RF: 0 fluoride (sodium) [PreviDent 5000 Booster Plus] 1.1 % Paste 1 applic DENTAL HS RF: 0 acetaminophen [Tylenol] 325 mg Capsule 650 mg PO Q6H PRN (Reason: TEMP>101/PAIN) RF: 0 Biotene Dry Mouth Oral Rinse Mouthwash 1 ea PO TID RF: 0 Eliquis 5 mg Tablet 5 mg PO BID Qty: 0 RF: 0 metolazone 2.5 mg tablet 2.5 mg PO DAILY RF: 0 ropinirole 2 mg tablet 2 mg PO DAILY RF: 0 duloxetine 60 mg capsule,delayed release(DR/EC) 120 mg PO DAILY RF: 0 prednisone 20 mg Tablet 40 mg PO .DAILY FOR 5 DAYS RF: 0 artificial tears solution Drops 1 drp OPHTHALMIC (EYE) BID RF: 0 benzonatate [Tessalon Perles] 100 mg Capsule 200 mg PO TID RF: 0 calcium carbonate [Tums 500] 500 mg calcium (1,250 mg) Tablet,Chewable 500 mg PO QID PRN (Reason: Indigestion) RF: 0 vitamin B complex [B Complex] Capsule 1 cap PO DAILY RF: 0 guaifenesin [Mucinex] 600 mg Tablet Extended Release 12hr 600 mg PO DAILY RF: 0 Proheal 30 ml PO DAILY RF: 0 Referrals Referrals: [facility], 1928–1983 [Primary Care Provider] -
[2020-12-03 02:39] LABS: Basophils # (auto) 0.01 K/uL (0-0.2); Basophils % (auto) 0.1 %; Hematocrit (blood only) 37.7 % (37-47); Hemoglobin 12.4 g/dL (12.0-16.0); Immature Granulocytes # (auto) 0.12 K/uL (0.00-0.02); Immature Granulocytes % (auto) 1.3 %; Lymphocytes # (auto) 1.58 K/uL (1.2-3.4); Lymphocytes % (auto) 16.9 %; Mean Corpuscular Hemoglobin 29.8 pg (25-34); Mean Corpuscular Hgb Conc 32.9 g/dL (32-36); Mean Corpuscular Volume 90.6 fL (80-100); Mean Platelet Volume 10.5 fL (7.4-10.4); Monocytes # (auto) 1.01 K/uL (0.11-0.59); Monocytes % (auto) 10.8 %; Neutrophils # (auto) 6.62 K/uL (1.4-6.5); Neutrophils % (auto) 70.9 %; Platelet Count 227 K/uL (130-400); RDW Coefficient of Variation 14.3 % (11.5-14.5); Red Blood Count 4.16 M/uL (4.2-5.4); White Blood Count 9.34 K/uL (4.8-10.8)
[2020-12-03 02:44] LABS: Base Excess VBG 5.4 mEq/L; HCO3 VBG 31 mmol/L; PCO2 VBG 49 mmHg (38-50); PO2 VBG 30 mmHg; pH VBG 7.42 (7.36-7.41)
[2020-12-03 02:49] LABS: INR 1.1 (0.9-1.1); Partial Thromboplastin Ratio 0.9; Partial Thromboplastin Time 23.6 Seconds (21.0-31.0); Prothrombin Time 11.2 Seconds (9.0-12.0)
[2020-12-03 02:53] LABS: Oxygen Saturation VBG < 60.0 %
[2020-12-03 02:57] LABS: BUN Creatinine Ratio 27.2 (10-20); Blood Urea Nitrogen 44 mg/dl (7-18); Calcium 8.8 mg/dl (8.5-10.1); Carbon Dioxide 33 mmol/L (21-32); Chloride 101 mmol/L (98-107); Est GFR (African American) 32.5 ml/min; Est GFR (Non-African American) 28.1 ml/min; Glucose 165 mg/dl (70-99); Lipase 82 U/L (73-393); Potassium 4.3 mmol/L (3.5-5.1); Sodium 140 mmol/L (136-145)
[2020-12-03 03:02] LABS: NT Pro B Type Natriuretic Pept 1276 pg/ml (0-1800); Troponin I < 0.015 ng/ml (0-0.045)
[2020-12-03] MEDS ORDERED: VANCOMYCIN HCL 2,750 MG in SODIUM CHLORIDE 0.9% 500 ML IV ONE (03:13)
[2020-12-03] MEDS ORDERED: CEFEPIME 2,000 MG/20 ML VIAL IV STA (03:13)
[2020-12-03] MEDS ORDERED: VANCOMYCIN CONSULT ACTIVE PRN (03:13)
--- NOTE | 2020-12-03 03:58 | History & Physical Report ---
Date of Service December 03, 2020 Assessment & Plan (1) Hypoxia: Plan: 89yo female presenting with worsening cough, fatigue and hypoxia noted in her intermediate today. She was recently diagnosed with bronchitis and was started on Prednisone therapy. She was found to be hypoxic today at 85% on her usual 2L, improved with increasing O2 to 6L. Pulmonary exam with rales in bilateral bases. Ddx to include acute exacerbation of CHF - ?fluid retention from steroid use or PNA. Labs no not reveal leukocytosis or elevated BNP. Troponin is negative. EKG without acute ischemic changes -Admit to medical -Bumex 2mg IV BID -Continue Metolazone -Monitor BUN, Cr and electrolytes -Monitor I/O, daily weights -Supplemental O2 as needed -Continue nebs - DuoNeb and Albuterol PRN -Will hold additional antibiotics for now (2) CHF (congestive heart failure): Plan: Suspect acute exacerbation of CHF as cause for SOB -Bumex 2mg IV BID -Continue Metolazone -Daily weights -I/O monitoring -Continue Tessalon TID and Guaifenesin Echo 02/26/19 with mild concentric LVH, normal systolic function with EF of 55- 60%, mild mitral annular calcification, moderate PH with RVSP elevated at 40- 50mmHg (3) Paroxysmal atrial fibrillation: Plan: Patient atrial paced for tachy-hesham syndrome. Presently in NSR -Continue Amiodarone 200mg daily -Continue Metoprolol -Continue Anticoagulation with Apixaban 5mg po BID (4) Sleep apnea: Plan: Chronic -Continue CPAP at [id number] (5) Ulcer of left heel: Plan: Patient complains of severe pain of her left heel ulcer. Dressing is in place. No bleeding, drainage. -Check X-ray of foot to assess for possible osteomyelitis given worsening pain (6) Anxiety: Plan: Patient appears anxious in room -Continue Duloxetine 120mg po daily Plan: F/E/N - Diuresis as above, monitor electrolytes and renal function with increased Bumex dosing, Heart healthy diet as tolerated Ppx - Continue Apixaban Code - DNR/DNI per record review Dispo -Admit to medical History of Present Illness Chief Complaint: hypoxia Primary Care Provider: [facility] Heather Donahue is an 89yo female with history of CHF, PAF, MITCH, on 2L NC at baseline presenting from [facility] with complaint os chest pain and allergic reaction to Prednisone. Patient was recently diagnosed with bronchitis and was started on Prednisone on 11/30/20. EMS found patient 85% on her normal 2L NC. She was administered a DuoNeb and O2 was increased to 6L which improved saturation. Patient was administered 2 Nitro prior to arrival. Patient is a poor historian but is able to provide some details about the events prior to arrival. She states that she feels very short of breath, tired, constant cough productive for clear mucus. She feels very short of breath. States she has had worsening bilateral LE edema and orthopnea as well but is uncertain of weight gain. No additional complaints ER Course: Vancomycin, Cefepime, supplemental O2 Allergies Allergy/AdvReac Type Severity Reaction Status Date / Time pollen extracts Allergy Unknown ALLERGY TO Verified 12/03/20 02:45 ALEGRE prednisone Allergy Unknown unknown Verified 12/03/20 02:45 egg AdvReac Unknown DIARRHEA, Verified 12/03/20 02:45 NAUSEATED Home Medications Medication Instructions Recorded Confirmed Type acetaminophen 325 mg capsule 650 mg PO Q6H PRN 02/25/19 12/03/20 History (Tylenol) acetaminophen 500 mg tablet 1,000 mg PO Q8 PRN 02/25/19 12/03/20 History (Tylenol Extra Strength) amiodarone 200 mg tablet (Pacerone) 200 mg PO DAILY 02/25/19 12/03/20 History fentanyl 25 mcg/hr transdermal 1 patch TRANSDERMAL Q72H 02/25/19 12/03/20 History patch fluoride (sodium) 1.1 % dental 1 applic DENTAL HS 02/25/19 12/03/20 History paste (PreviDent 5000 Booster Plus) ipratropium 0.5 mg-albuterol 3 mg 3 ml INHALATION TID 02/25/19 12/03/20 History (2.5 mg base)/3 mL nebulization soln metoprolol succinate 25 mg 25 mg PO DAILY 02/25/19 12/03/20 History tablet,extended release 24 hr pregabalin 150 mg capsule 150 mg PO BID 02/25/19 12/03/20 History saliva substitute combo no.9 1 ea PO TID 02/25/19 12/03/20 History (Biotene Dry Mouth Oral Rinse) apixaban 5 mg tablet (Eliquis) 5 mg PO BID #0 tab 02/27/19 12/03/20 Rx bumetanide 2 mg tablet 4 mg PO DAILY tab 07/12/19 12/03/20 History nitroglycerin 0.4 mg sublingual 0.4 mg SL Q5M PRN 07/12/19 12/03/20 History tablet (Nitrostat) calcium carbonate [Tums] 1 tab PO QID PRN 07/03/20 12/03/20 History diclofenac sodium 1 % topical gel 0 g TOPICAL BID g 07/03/20 12/03/20 History (Voltaren) magnesium hydroxide 2,400 mg/10 mL 30 ml PO DAILY PRN ml 07/03/20 12/03/20 History oral suspension (Milk Of Magnesia Concentrated) metolazone 2.5 mg tablet 2.5 mg PO DAILY tab 07/03/20 12/03/20 History omeprazole 40 mg capsule,delayed 40 mg PO DAILY 07/03/20 12/03/20 History release potassium chloride 20 mEq 40 meq PO QID tab 07/03/20 12/03/20 History tablet,extended release propylene glycol 1 %-glycerin 0.3 1 drp OPHTHALMIC (EYE) BID PRN 07/03/20 12/03/20 History % eye drops psyllium husk [Fiber (psyllium 1 cap PO DAILY 07/03/20 12/03/20 History husk)] ropinirole 2 mg tablet 2 mg PO DAILY tab 07/03/20 12/03/20 History ropinirole 4 mg tablet 4 mg PO HS tab 07/03/20 12/03/20 History sennosides 8.6 mg capsule (senna) 8.6 mg PO BID 07/03/20 12/03/20 History sodium phosphates 19 gram-7 118 ml WA DAILY PRN 07/03/20 12/03/20 History gram/118 mL enema bisacodyl 10 mg rectal suppository 10 mg WA DAILY PRN 10/03/20 12/03/20 History (Dulcolax (bisacodyl)) duloxetine 60 mg capsule,delayed 120 mg PO DAILY cap 10/03/20 12/03/20 History release Proheal 30 ml PO DAILY 12/03/20 12/03/20 History artificial tears solution eye drops 1 drp OPHTHALMIC (EYE) BID 12/03/20 12/03/20 History benzonatate 100 mg capsule 200 mg PO TID 12/03/20 12/03/20 History (Fredrick Parr) calcium carbonate 500 mg calcium 500 mg PO QID PRN 12/03/20 12/03/20 History (1,250 mg) chewable tablet guaifenesin 600 mg tablet, 600 mg PO DAILY 12/03/20 12/03/20 History extended release 12 hr (Mucinex) prednisone 20 mg tablet 40 mg PO .DAILY FOR 5 DAYS 12/03/20 12/03/20 History vitamin B complex 1 cap PO DAILY 12/03/20 12/03/20 History Past Med/Surg History Medical History (Updated 12/03/20 @ 04:27 by Rachel Martinez DO) Anxiety Breast CA Carcinoma of breast (03/04/11) CHF (congestive heart failure) CHF exacerbation Chronic pain syndrome Deep venous thrombosis DVT (deep venous thrombosis) Elevated INR Elevated troponin Lymphedema Macular degeneration Mixed conductive and sensorineural hearing loss of left ear with restricted hearing of right ear Morbid obesity Osteoarthritis Pacemaker IMPLANTED 03/28 TACHY-HESHAM/SSS LAST PACER CHECK 01/21/18 Paroxysmal atrial fibrillation Pulmonary hypertension MODERATE 40-50MMHG Sensorineural hearing loss of both ears Sleep apnea ? CPAP Vertigo (03/04/11) Surgical History H/O mastectomy History of appendectomy History of cardiac pacemaker in situ History of carpal tunnel release of both wrists History of difficult intubation 07/07/17= GRADE 2 VIEW, GLIDESCOPE#3, ETT 7.5 AT [facility] History of ERCP 07/07/17= GRADE 2 VIEW, GLIDESCOPE#3, ETT 7.5 AT [facility] History of inferior vena caval filter placement History of total right hip arthroplasty History of total right knee replacement (TKR) Hx of cholecystectomy Hx of eye surgery S/P myringotomy with insertion of tube RIGHT Family History Other Asthma Cancer Hearing loss Heart disease Hypertension No family history of adverse response to anesthesia No family history of bleeding disorder Stroke Social History Smoking Status: Never smoker Second Hand Exposure: No; Hx Alcohol Use: No Hx Substance Use: No Preferred Language: Montserratian Communication Ability: Effective Visual Impairment: No Limitations Hearing Ability: Use of Hearing Aid Cover Mat Machine Operator Required: No Beliefs That Will Affect Care: None marital status: Current Living Situation: Alf Current Living Situation Comment: ASSISTED LIVING FACILITY, [facility] current occupational status: retired Feels Safe at Home: Yes Assistive Devices: Oxygen - Continuous Review of Systems Review of Systems: All systems reviewed & are unremarkable except as noted in HPI & below Physical Exam Physical Exam: General: obese female patient, uncomfortable but in NAD, hard of hearing Skin: venous stasis dermatitis of bilateral LE. Ulcer of left heel with dressing in place HEENT: NC/AT, PERRL, EOMI, anicteric sclera, conjunctiva without injection, external ear normal to inspection and nontender, nares patent, moist mucus membranes, dentition intact, no oropharyngeal lesions, neck supple, trachea midline, no LAD, no thyromegaly, no JVD Heart: +S1/S2, regular, no m/r/g Lungs: equal air entry bilaterally, crackles in bilateral bases Abd: +BS, soft, NT/ND, no masses/organomegaly/ascites Ext: warm, 2+ pulses in UE/LE bilaterally, 1+ edema of bilateral LE pitting Neuro: generalized weakness, non-focal, patient is hard of hearing but able to answer questions appropriately Results & Data Results & Data ([facility]) Vital Signs (Past 12 Hours) Vital Signs Temp Pulse Resp BP Pulse Ox 12/03/20 02:34 99 12/03/20 02:01 36.7 C 79 20 129/70 98 Laboratory Results Laboratory Results WBC 9.34 K/uL (4.8-10.8) 12/03/20 02:24 RBC 4.16 M/uL (4.2-5.4) L 12/03/20 02:24 Hgb 12.4 g/dL (12.0-16.0) 12/03/20 02:24 Hct 37.7 % (37-47) 12/03/20 02:24 MCV 90.6 fL (80-100) 12/03/20 02:24 MCH 29.8 pg (25-34) 12/03/20 02:24 MCHC 32.9 g/dL (32-36) 12/03/20 02:24 RDW Std Deviation 47.0 fL (36.4-46.3) H 12/03/20 02:24 RDW Coeff of Carole 14.3 % (11.5-14.5) 12/03/20 02:24 Plt Count 227 K/uL (130-400) 12/03/20 02:24 MPV 10.5 fL (7.4-10.4) H 12/03/20 02:24 Immature Gran % (Auto) 1.3 % 12/03/20 02:24 Neut % (Auto) 70.9 % 12/03/20 02:24 Lymph % (Auto) 16.9 % 12/03/20 02:24 [place] % (Auto) 10.8 % 12/03/20 02:24 Eos % (Auto) 0.0 % 12/03/20 02:24 Baso % (Auto) 0.1 % 12/03/20 02:24 Neut # (Auto) 6.62 K/uL (1.4-6.5) H 12/03/20 02:24 Lymph # (Auto) 1.58 K/uL (1.2-3.4) 12/03/20 02:24 [place] # (Auto) 1.01 K/uL (0.11-0.59) H 12/03/20 02:24 Eos # (Auto) 0.00 K/uL (0-0.5) 12/03/20 02:24 Baso # (Auto) 0.01 K/uL (0-0.2) 12/03/20 02:24 Immature Gran # (Auto) 0.12 K/uL (0.00-0.02) H 12/03/20 02:24 PT 11.2 Seconds (9.0-12.0) 12/03/20 02:24 INR 1.1 (0.9-1.1) 12/03/20 02:24 APTT 23.6 Seconds (21.0-31.0) 12/03/20 02:24 PTT Ratio 0.9 12/03/20 02:24 VBG pH 7.42 (7.36-7.41) H 12/03/20 02:24 VBG pCO2 49 mmHg (38-50) 12/03/20 02:24 VBG pO2 30 mmHg 12/03/20 02:24 VBG HCO3 31 mmol/L 12/03/20 02:24 VBG O2 Saturation < 60.0 % 12/03/20 02:24 VBG Base Excess 5.4 mEq/L 12/03/20 02:24 Sodium 140 mmol/L (136-145) 12/03/20 02:24 Potassium 4.3 mmol/L (3.5-5.1) 12/03/20 02:24 Chloride 101 mmol/L (98-107) 12/03/20 02:24 Carbon Dioxide 33 mmol/L (21-32) H 12/03/20 02:24 Anion Gap 6.0 (3-11) 12/03/20 02:24 BUN 44 mg/dl (7-18) H 12/03/20 02:24 Creatinine 1.62 mg/dl (0.6-1.2) H 12/03/20 02:24 Est Cr Clr Drug Dosing Not Reportable 12/03/20 02:24 Est GFR ( Amer) 32.5 ml/min 12/03/20 02:24 Est GFR (Non-Af Amer) 28.1 ml/min 12/03/20 02:24 BUN/Creatinine Ratio 27.2 (10-20) H 12/03/20 02:24 Glucose 165 mg/dl (70-99) H 12/03/20 02:24 Calcium 8.8 mg/dl (8.5-10.1) 12/03/20 02:24 Magnesium 2.0 mg/dl (1.8-2.4) 12/03/20 02:24 Troponin I < 0.015 ng/ml (0-0.045) 12/03/20 02:24 NT-Pro-B Natriuret Pep 1276 pg/ml (0-1800) 12/03/20 02:24 Lipase 82 U/L (73-393) 12/03/20 02:24 COVID-19 Eval Order Covid19 at [facility] 12/03/20 02:24 SARS-CoV-2 (PCR) NEGATIVE (Negative) 12/03/20 02:24 Diagnostic Findings CXR by my interpretation with cardiomegaly peribronchial cuffing and bilateral airspace opacities, ?developing LLL PNA s/p left shoulder replacement, pacer in place ECG Additional Comments: EKG is atrial paced with rate of 76, no acute ischemic changes Code Status & VTE Plan VTE Prophylaxis Plan VTE Prophylaxis will be ordered: Yes PG Care Time/CCT Total # of Minutes Spent Total Time Spent with Patient: Total time spent is greater than 50% in coordination of care (as documented) at patient's floor/unit and/or counseling patient: Coding Level of Care Code 63605 Initial Inpt Care Lvl 3 Diagnoses Hypoxia R09.02 CHF (congestive heart failure) I50.9 Heart failure chronicity: unspecified Heart failure type: unspecified Paroxysmal atrial fibrillation I48.0 Sleep apnea G47.30 Ulcer of left heel L97.429 Anxiety F41.9 (1) CHF (congestive heart failure) Heart failure chronicity: unspecified Heart failure type: unspecified Qualified Code(s): I50.9 - Heart failure, unspecified
[2020-12-03] MEDS ORDERED: ONDANSETRON INJ 2 MG/ML 2 ML VIAL IV PRN (06:05)
[2020-12-03] MEDS ORDERED: bisacodyL 10 MG SUPP PR PRN (06:05)
[2020-12-03] MEDS ORDERED: POLYETHYLENE (MIRALAX) 17 GM PACK PO PRN (06:05)
[2020-12-03] MEDS ORDERED: ALUMINUM/MAGNESIUM SUSP 30 ML UDC PO PRN (06:05)
[2020-12-03] MEDS ORDERED: MAGNESIUM HYDROXIDE SUSP 30 ML UDC PO PRN (06:05)
[2020-12-03] MEDS ORDERED: ALBUTEROL 0.5% NEB SOLN 2.5 MG/0.5 ML VIAL NEB PRN (06:05)
[2020-12-03] MEDS ORDERED: ACETAMINOPHEN 500 MG TAB PO PRN (06:35)
[2020-12-03] MEDS: ALBUT/IPRATROP 3MG/0.5MG NEB 3 ML VIAL INH SCH ×3 (07:21→19:51)
--- NOTE | 2020-12-03 08:22 | XRay Report ---
SINGLE VIEW CHEST CLINICAL HISTORY: Atypical chest pain. FINDINGS: An AP, portable, upright chest radiograph is compared to study dated 02/25/2019 and correlate d with chest CT dated 03/02/2019. The examination is degraded by portable technique and patient rotatio n. A 2-lead cardiac pacemaker is unchanged in position. The heart is enlarged noting atherosclerotic calcification of the thoracic aorta. The pulmonary vasculature is noncongested. There is bibasilar sc arring/atelectasis. No airspace consolidation or large pleural effusion is identified. No pneumothora x is seen. The bony thorax is grossly intact. A right shoulder arthroplasty is in place. Advanced art hritic change is seen in the left shoulder. Surgical clips are noted in the right axilla. IMPRESSION: 1. Cardiomegaly and cardiac pacemaker with no radiographic evidence of congestive failure. 2. No airspace consolidation or large pleural effusion is identified. ACT 112: Negative or not required by law. Electronically signed by: Rm Okeefe M.D. 12/03/2020 8:20 AM
[2020-12-03] MEDS: CHECK fentaNYL PATCH PLACEMENT SCH ×3 (08:27→17:42)
[2020-12-03] MEDS: BUMETANIDE 2 MG in SYRINGE 0 ML IV SCH ×2 (08:28→17:41)
[2020-12-03] MEDS: DICLOFENAC SOD 1% GEL 100 GM TUBE EXT SCH ×2 (08:28→20:32)
--- NOTE | 2020-12-03 08:28 | XRay Report ---
XR foot LT 2V HISTORY: 89 years-old Female heel ulcer soft tissue ulcer of the left foot. Clinical concern for ost eomyelitis COMPARISON: 07/07/2016 TECHNIQUE: 2 views of the left foot FINDINGS: Demineralized appearance of the bones. Moderate multifocal osteoarthritis. Moderate diffuse soft tiss ue swelling. No acute fracture or dislocation. Spurring of the calcaneus. Severe degeneration of the midfoot. Moderate osseous erosion involves the second distal phalanx. IMPRESSION: 1. Osseous erosion of the second distal phalanx suggestive of osteomyelitis. 2. No radiographic evidence of calcaneal osteomyelitis on this exam. ACT 112: Negative or not required by law. The above report was generated using voice recognition software. It may contain grammatical, syntax o r spelling errors. Electronically signed by: Regan Quiñonez M.D. 12/03/2020 8:27 AM
[2020-12-03] MEDS: BENZONATATE 100 MG CAPSULE PO SCH ×3 (08:29→20:31)
[2020-12-03] MEDS: POTASSIUM CHLORIDE CRTAB 20 MEQ TABCR PO SCH ×4 (08:29→20:31)
[2020-12-03] MEDS: FAMOTIDINE 40 MG TABLET PO SCH (08:29)
[2020-12-03] MEDS: DULoxetine HCL 60 MG CAP PO SCH (08:30)
[2020-12-03] MEDS: metOLazone 2.5 MG TABLET PO SCH (08:30)
[2020-12-03] MEDS: APIXABAN 5 MG TABLET PO SCH ×2 (08:30→20:31)
[2020-12-03] MEDS: AMIODARONE 200 MG TAB PO SCH (08:30)
[2020-12-03] MEDS: guaiFENesin 600 MG TABCR PO SCH (08:30)
[2020-12-03] MEDS: METOPROLOL SUCC 25MG EXT REL TAB PO SCH (08:30)
[2020-12-03] MEDS: rOPINIRole HCL 2 MG TABLET PO SCH (08:31)
[2020-12-03] MEDS: PREGABALIN 150 MG CAP PO SCH ×2 (08:38→20:31)
--- NOTE | 2020-12-03 12:05 | Electrocardiogram Report ---
Test Reason : Blood Pressure : / mmHG Vent. Rate : 076 BPM Atrial Rate : 068 BPM P-R Int : 310 ms QRS Dur : 110 ms QT Int : 432 ms P-R-T Axes : 000 -42 033 degrees QTc Int : 486 ms Poor data quality, interpretation may be adversely affected Atrial-paced rhythm with prolonged AV conduction Left axis deviation Septal infarct , age undetermined Abnormal ECG When compared with ECG of 25-FEB-2019 18:01, Incomplete left bundle block is no longer Present Confirmed by Johnathan Welsh ([id number]) on 12/03/2020 12:04:57 PM Referred By: REFERRED SELF Confirmed By:Johnathan Welsh
--- NOTE | 2020-12-03 16:57 | Communication Note ---
Date of Service: December 03, 2020 I saw the patient with current resident physician and confirmed sandy portions of the history and physical examination. I agree with the impression and plan as noted the resident documentation as summarized below. This patient was admitted earlier today by the overnight inpatient team. 89-year-old female was sent to the emergency department from her long-term care facility after she was found to be hypoxic at 85% on her usual 2 L via oxygen. She tells me this morning that she felt as if she could not catch her breath. In the illness, she was given a DuoNeb treatment and her oxygen was increased to 6 L. She was also given nitroglycerin prior to arrival. Records also indicate the patient was given prednisone for presumed bronchitis. The patient states that she has had an upper respiratory infection for about 1 to 2 weeks. Her main complaint is left heel pain from a heel ulceration. Exam 118/64, 78, 20, 36.6, 96% on room air She is pleasant. She is alert and oriented. HEENT generally unremarkable. Lungs fairly clear with nonlabored respirations. Heart regular rate and rhythm Abdomen is obese but nontender Trace edema bilateral lower extremities Data WBC 9.34, hemoglobin 12.4. Sodium 140, potassium 4.3, BUN 44, creatinine 1.62 BNP 1276 Chest x-ray performed in the emergency department shows cardiomegaly, pacemaker, no evidence of failure. An x-ray of the left foot shows osseous erosion of the second distal phalanx suggestive of osteomyelitis. Impression and plan Hypoxia, resolved Unclear of etiology, she seems to be improved through both a combination of duo nebs and some degree of diuresis. She may have had some fluid retention secondary to steroids. Either way, the patient states that her work of breathing is much easier today and she is maintaining excellent saturations on room air. Will resume home diuretic regimen Left heel ulceration Question osteomyelitis, left second toe Wound care Additional per resident documentation and H&P of same date
--- NOTE | 2020-12-03 17:07 | Hospitalist Progress Note ---
Date of Service December 03, 2020 Assessment & Plan (1) Hypoxia: (2) Osteomyelitis: Plan: (1) Hypoxia: 89yo female presenting with worsening cough, fatigue and hypoxia noted in her mcfp. She was recently diagnosed with bronchitis and was started on Prednisone therapy. She was found to be hypoxic at 85% on her usual 2L, improved with increasing O2 to 6L. Initial pulmonary exam with rales in bilateral bases. Ddx to include acute exacerbation of CHF versus ?fluid retention from steroid use or PNA. Labs no not reveal leukocytosis or elevated BNP. Troponin is negative. EKG without acute ischemic changes -Bumex 2mg IV BID, Continue Metolazone -Monitor BUN, Cr and electrolytes, I/O, daily weights -Supplemental O2 as needed -Continue nebs - DuoNeb and Albuterol PRN -Will hold additional antibiotics for now (2) CHF (congestive heart failure): Suspect acute exacerbation of CHF as cause for SOB -Bumex 2mg IV BID -Continue Metolazone -Daily weights -I/O monitoring -Continue Tessalon TID and Guaifenesin -Echo 02/26/19 with mild concentric LVH, normal systolic function with EF of 55- 60%, mild mitral annular calcification, moderate PH with RVSP elevated at 40- 50mmHg (3) Paroxysmal atrial fibrillation: Patient atrial paced for tachy-hesham syndrome. Presently in NSR -Continue Amiodarone 200mg daily -Continue Metoprolol -Continue Anticoagulation with Apixaban 5mg po BID (4) Sleep apnea: Chronic -Continue CPAP at [id number] (5) Ulcer of left heel: Patient complains of severe pain of her left heel ulcer. Dressing is in place. No bleeding, drainage. -Check X-ray of left foot: no osteomyelitis of heel, erosion of 2nd distal phalanx suggestive of osteomyelitis. -wound care consulted -Given osteomyelitis of her second distal phalanx left foot with an incidental finding, her age, being relatively asymptomatic towards the foot, no clinical signs of infection, and labs relatively normal, seems reasonable to hold off antibiotics for now. This may be a chronic finding, and as long as she is not systemically affected it may not make sense to treat at this time given high incidences of recurrence despite antibiotic treatment. (6) Anxiety: Patient appears anxious in room -Continue Duloxetine 120mg po daily FEN - Diuresis as above, monitor electrolytes and renal function with increased Bumex dosing, Heart healthy diet as tolerated DVT Ppx - Continue Apixaban Code - DNR/DNI per record review Dispo - med/surg Admission and Anticipated Discharge Date Admission Date: December 03, 2020 Supervising Physician Co-Signing Physician Notes I also saw the patient with the resident physician and confirmed sandy portions of the history and physical examination. Please see my separate communication note for my complete attestation. Subjective Breathing better than when she came in. Unaware she had an ulcer on her foot. In good spirits, no acute complaints. Review of Systems Review of Systems: All systems reviewed & are unremarkable except as noted in HPI & below Constitutional: no fever, no chills and no fatigue Respiratory: + dyspnea (mild); no cough Cardiovascular: no chest pain and no palpitations Musculoskeletal: no foot pain Physical Exam Physical Exam: General: obese female patient, comfortable, NAD, hard of hearing Skin: venous stasis dermatitis of bilateral LE. Ulcer of left heel with dressing in place. Hyperkeratosis plaque on 2nd distal phalynx left foot. HEENT: NC/AT, PERRL, EOMI, anicteric sclera, conjunctiva without injection, external ear normal to inspection and nontender, nares patent, moist mucus membranes, dentition intact, no oropharyngeal lesions, neck supple, trachea midline, no LAD, no thyromegaly, no JVD Heart: +S1/S2, regular, no m/r/g Lungs: equal air entry bilaterally, mild wheezing in bilateral lungs L>R Abd: +BS, soft, NT/ND, no masses/organomegaly/ascites Ext: warm, 2+ pulses in UE/LE bilaterally, 1+ edema of bilateral LE pitting Neuro: generalized weakness, non-focal, patient is hard of hearing but able to answer questions appropriately Results & Data Results & Data ([facility]) Vital Signs (Past 12 Hours) Vital Signs Temp Pulse Pulse Pulse Resp BP BP 12/03/20 15:30 36.6 C 20 118/64 12/03/20 13:18 78 18 12/03/20 07:20 36.5 C 63 16 125/71 12/03/20 06:05 36.5 C 69 16 152/81 H 12/03/20 05:44 18 138/60 12/03/20 05:30 36.5 C 69 16 152/81 H 12/03/20 05:00 67 18 137/74 Pulse Ox 12/03/20 15:30 96 12/03/20 13:18 97 12/03/20 07:20 99 12/03/20 06:05 98 12/03/20 05:44 100 12/03/20 05:30 98 12/03/20 05:00 100 Resident Activity Tracking Resident Involvement: Resident Care Provided Care Provided: Adult [facility]
[2020-12-03] MEDS ORDERED: rOPINIRole HCL 2 MG TABLET PO SCH (21:00)
[2020-12-04] MEDS: CHECK fentaNYL PATCH PLACEMENT SCH ×3 (00:26→15:47)
[2020-12-04 07:24] LABS: Basophils # (auto) 0.04 K/uL (0-0.2); Basophils % (auto) 0.4 %; Eosinophils # (auto) 0.22 K/uL (0-0.5); Eosinophils % (auto) 2.2 %; Hematocrit (blood only) 41.7 % (37-47); Hemoglobin 13.6 g/dL (12.0-16.0); Immature Granulocytes # (auto) 0.08 K/uL (0.00-0.02); Immature Granulocytes % (auto) 0.8 %; Lymphocytes # (auto) 2.43 K/uL (1.2-3.4); Lymphocytes % (auto) 24.8 %; Mean Corpuscular Hemoglobin 29.6 pg (25-34); Mean Corpuscular Hgb Conc 32.6 g/dL (32-36); Mean Corpuscular Volume 90.7 fL (80-100); Mean Platelet Volume 10.8 fL (7.4-10.4); Monocytes # (auto) 1.07 K/uL (0.11-0.59); Monocytes % (auto) 10.9 %; Neutrophils # (auto) 5.95 K/uL (1.4-6.5); Neutrophils % (auto) 60.9 %; Platelet Count 240 K/uL (130-400); RDW Coefficient of Variation 14.5 % (11.5-14.5); RDW Standard Deviation 47.6 fL (36.4-46.3); White Blood Count 9.79 K/uL (4.8-10.8)
[2020-12-04] MEDS: ALBUT/IPRATROP 3MG/0.5MG NEB 3 ML VIAL INH SCH ×2 (07:35→13:24)
[2020-12-04 07:41] LABS: BUN Creatinine Ratio 31.4 (10-20); Calcium 9.1 mg/dl (8.5-10.1); Creatinine Clr Calc Pharmacy 30.5 ml/min; Est GFR (African American) 34.6 ml/min; Est GFR (Non-African American) 29.8 ml/min; Potassium 3.9 mmol/L (3.5-5.1)
[2020-12-04 07:42] LABS: C Reactive Protein 1.27 mg/dl (0-0.29)
--- NOTE | 2020-12-04 08:02 | Hospitalist Progress Note ---
Date of Service December 04, 2020 Assessment & Plan (1) Hypoxia: Plan: 89 year old female with worsening cough, fatigue, and hypoxia from care home recently diagnosed with bronchitis and treated with prednisone, of which patient had a bad reaction with worsening of shortness of breath and found to be hypoxic in 80's. (2) Osteomyelitis: Plan: Patient with incidental finding of erosion of 2nd distal phalanx suggestive of osteomyelitis on left foot X-ray. Given age, absence of symptoms Admission and Anticipated Discharge Date Admission Date: December 03, 2020 Subjective Patient was seen at bedside with nurse present. Patient is doing better with breathing than when she first came in. She endorses feeling a little nauseous but said she may feel better after eating breakfast. Still occasional cough, short of breath but says she is always short of breath. Patient was not physically in any distress when I saw her. She still has pain as much as when she was first admitted at the wound at the base of her left heel. No pain at the second digit of the left foot but does say the area is numb. Patient said she would like to go home soon if possible due to boredom here. Denies fevers or chills. Physical Exam Constitutional: WD/WN, vitals as above Eyes: PERRL, conjunctivae normal, anicteric sclerae Respiratory: Lungs clear to auscultation on inspiration, low volume expiratory wheeze at right upper lung. Cardiovascular: RRR, 2/6 systolic murmur, no rubs or gallops. Gastrointestinal (Abdomen): normal bowel sounds, soft, nontender, no hepatosplenomegaly Skin: around 2cm wound at the heel of her left foot, chronic skin damage to proximal second digit on left foot. Results & Data Results & Data ([facility]) Vital Signs (Past 12 Hours) Vital Signs Temp Pulse Pulse Pulse Resp BP Pulse Ox 12/04/20 07:36 88 0 L 93 12/04/20 03:54 84 11 L 94 12/03/20 22:37 80 16 94 12/03/20 20:57 80 21 94 12/03/20 20:20 36.5 C 58 L 20 111/65 95
[2020-12-04] MEDS: PREGABALIN 150 MG CAP PO SCH (08:21)
[2020-12-04] MEDS: BENZONATATE 100 MG CAPSULE PO SCH ×2 (08:22→13:59)
[2020-12-04] MEDS: guaiFENesin 600 MG TABCR PO SCH (08:22)
[2020-12-04] MEDS: METOPROLOL SUCC 25MG EXT REL TAB PO SCH (08:23)
[2020-12-04] MEDS: POTASSIUM CHLORIDE CRTAB 20 MEQ TABCR PO SCH ×2 (08:23→13:59)
[2020-12-04] MEDS: rOPINIRole HCL 2 MG TABLET PO SCH (08:23)
[2020-12-04] MEDS: AMIODARONE 200 MG TAB PO SCH (08:24)
[2020-12-04] MEDS: metOLazone 2.5 MG TABLET PO SCH (08:25)
[2020-12-04] MEDS: APIXABAN 5 MG TABLET PO SCH (08:26)
[2020-12-04] MEDS: DULoxetine HCL 60 MG CAP PO SCH (08:26)
[2020-12-04] MEDS: BUMETANIDE 2 MG in SYRINGE 0 ML IV SCH (08:28)
[2020-12-04] MEDS: FAMOTIDINE 40 MG TABLET PO SCH (08:28)
[2020-12-04] MEDS: DICLOFENAC SOD 1% GEL 100 GM TUBE EXT SCH (08:28)
[2020-12-04] MEDS ORDERED: fentaNYL 25 MCG/HR TDSY TD SCH (09:00)
--- NOTE | 2020-12-04 12:30 | XCELERA ---
[id number]
[2020-12-04 15:47] VITALS: TEMP 97.5; O2SAT 100
[2020-12-04 16:12] VITALS: BP 118/64; PULSE 85
--- NOTE | 2020-12-04 16:52 | Discharge Summary ---
Date of Service December 04, 2020 Admission HPI Per Admitting Provider Heather Donahue is an 89yo female with history of CHF, PAF, MITCH, on 2L NC at baseline presenting from [facility] with complaint os chest pain and allergic reaction to Prednisone. Patient was recently diagnosed with bronchitis and was started on Prednisone on 11/30/20. EMS found patient 85% on her normal 2L NC. She was administered a DuoNeb and O2 was increased to 6L which improved saturation. Patient was administered 2 Nitro prior to arrival. Patient is a poor historian but is able to provide some details about the events prior to arrival. She states that she feels very short of breath, tired, co nstant cough productive for clear mucus. She feels very short of breath. States she has had worsening bilateral LE edema and orthopnea as well but is uncertain of weight gain. No additional complaints ER Course: Vancomycin, Cefepime, supplemental O2 Principal Diagnosis Hypoxia 2/2 CHF exacerbation and bronchitis Discharge Exam Constitutional WD/WN, vitals as above Eyes PERRL, conjunctivae normal, anicteric sclerae Respiratory Slight end expiratory wheezes, inspiration clear to auscultation. Cardiovascular RRR, no murmur, no edema Gastrointestinal (Abdomen) normal bowel sounds, soft, nontender, no hepatosplenomegaly Skin around 2cm grade II looking ulcer at base of left heel. Chronic skin changes to distal second digit of left foot. Discharge Data Allergies Allergy/AdvReac Type Severity Reaction Status Date / Time pollen extracts Allergy Unknown ALLERGY TO Verified 12/03/20 02:45 ALEGRE prednisone Allergy Unknown unknown Verified 12/03/20 02:45 egg AdvReac Unknown DIARRHEA, Verified 12/03/20 02:45 NAUSEATED Consultations 12/03/20 03:14 ED Decision to Admit Stat Hospital Course (1) Hypoxia: (2) Osteomyelitis: Hypoxia 2/2 CHF vs bronchitis: Patient was hypoxic upon entering ED at 85% on 2L NC, given O2 at 6L NC along with diuretics and duoneb and improved. Hypoxia likely secondary to combination of CHF exacerbation and bronchitis. Told patient to take albuterol inhaler as needed to help get rid of any remaining mucous and to use her O2 when needed. Continued home meds. Osteomyelitis of left foot: Patient also had complaint of foot ulcer base of left heel. X-ray showed no osteomyelitis at heel but incidental chronic bone changes at the distal left second digit of the foot consistent with osteomyelitis. Given patient's age, lack of symptoms at the 2nd digit of the left foot told her to follow up with outpatient wound clinic to manage the heel ulcer as well as conservative management for the 2nd digit of left foot. Total Time Total Time Spent Total Time Spent (In Minutes): <30 Discharge Plan Discharge Items Patient Disposition: Transfer Halfway Fac Reason For Visit: ACUTE HYPOXIC RESPIRATORY FAILURE Discharge Diagnosis: Hypoxia due to CHF exacerbation vs bronchitis Activity: Per Instructions section Non-emergency contact: Primary Care Provider Call non-emergency contact if: your symptoms worsen, your pain is worsening, your temperature is above 101.5 and your wound has increased drainage Follow-up/Referrals: [facility] [Primary Care Provider] - Diet: Heart Healthy Addtl Attending Provider Instructions: Low oxygen saturation: You had low oxygen saturation when coming in which may have been from an exacerbation of heart failure or from your bronchitis. Your oxygen saturation has since improved and we recommend following up within the next few days with your primary care provider. You are prescribed an albuterol inhaler to use to help mucous in your lungs have an easier time of getting out b y opening up the airways. Please continue to use your albuterol inhaler as needed. Remember to use your oxygen as needed as well and continue with your other medications as prescribed. Foot ulcer: We recommend following up with Wound Clinic in the outpatient setting for your heel foot ulcer as well as conservative management of your left foot second toe which was found to have bone changes on X-ray. If you have any worsening of your breathing or feel like you can't catch your breath, develop a fever, or worsening of the ulcer or left second toe please come back to the hospital for further management. Pending Studies at Discharge: No Stand-Alone Forms: [facility] CHF Dc Instructions, [facility] Skilled Items Patient informed of condition?: Yes DNR: Yes Discharge Level of Care: Skilled Communicable Disease: Yes (MRSA nare screening. ) Discharge Prognosis: Stable Lines: None Urinary Catheter: No Medications and DC Order Prescriptions: Continued bumetanide 2 mg tablet 4 mg PO DAILY RF: 0 nitroglycerin [Nitrostat] 0.4 mg tablet, sublingual 0.4 mg SL Q5M PRN (Reason: Chest Pain) RF: 0 magnesium hydroxide [Milk Of Magnesia Concentrated] 2,400 mg/10 mL suspension 30 ml PO DAILY PRN (Reason: Constipation) RF: 0 propylene glycol-glycerin 1-0.3 % drops 1 drp ophthalmic (eye) BID PRN (Reason: Dry Eyes) RF: 0 sodium phosphates 19-7 gram/118 mL enema 118 ml [place] DAILY PRN (Reason: Constipation) RF: 0 psyllium husk 1 cap PO DAILY RF: 0 omeprazole 40 mg capsule,delayed release(DR/EC) 40 mg PO DAILY RF: 0 potassium chloride 20 mEq tablet extended release 40 meq PO QID RF: 0 ropinirole 4 mg tablet 4 mg PO HS RF: 0 senna 8.6 mg capsule 8.6 mg PO BID RF: 0 calcium carbonate 1 tab PO QID PRN (Reason: Indigestion) RF: 0 diclofenac sodium [Voltaren] 1 % gel 0 g topical BID RF: 0 bisacodyl [Dulcolax (bisacodyl)] 10 mg suppository 10 mg [place] DAILY PRN (Reason: Constipation) RF: 0 amiodarone [Pacerone] 200 mg tablet 200 mg PO DAILY RF: 0 ipratropium-albuterol 0.5 mg-3 mg(2.5 mg base)/3 mL Solution For Nebulization 3 ml INHALATION TID RF: 0 acetaminophen [Tylenol Extra Strength] 500 mg Tablet 1,000 mg PO Q8 PRN (Reason: pain 4-6) RF: 0 metoprolol succinate 25 mg Tablet Extended Release 24 Hr 25 mg PO DAILY RF: 0 fentanyl 25 mcg/hr Patch 72 Hour 1 patch TRANSDERMAL Q72H RF: 0 pregabalin 150 mg Capsule 150 mg PO BID RF: 0 fluoride (sodium) [PreviDent 5000 Booster Plus] 1.1 % Paste 1 applic DENTAL HS RF: 0 acetaminophen [Tylenol] 325 mg Capsule 650 mg PO Q6H PRN (Reason: TEMP>101/PAIN) RF: 0 Biotene Dry Mouth Oral Rinse Mouthwash 1 ea PO TID RF: 0 Eliquis 5 mg Tablet 5 mg PO BID Qty: 0 RF: 0 metolazone 2.5 mg tablet 2.5 mg PO DAILY RF: 0 ropinirole 2 mg tablet 2 mg PO DAILY RF: 0 duloxetine 60 mg capsule,delayed release(DR/EC) 120 mg PO DAILY RF: 0 prednisone 20 mg Tablet 40 mg PO .DAILY FOR 5 DAYS RF: 0 artificial tears solution Drops 1 drp OPHTHALMIC (EYE) BID RF: 0 benzonatate [Tessalon Perles] 100 mg Capsule 200 mg PO TID RF: 0 calcium carbonate 500 mg calcium (1,250 mg) Tablet,Chewable 500 mg PO QID PRN (Reason: Indigestion) RF: 0 vitamin B complex Capsule 1 cap PO DAILY RF: 0 guaifenesin [Mucinex] 600 mg Tablet Extended Release 12hr 600 mg PO DAILY RF: 0 Proheal 30 ml PO DAILY RF: 0 Discharge Orders: Discharge Order (Routine); Ordered 12/04/20 Ordered By: Yousif Cherry Admission Data Admit Date/Time: 12/03/20 03:47 Attending Provider: Kade Lee Admit Provider: Rachel Martinez Primary Care Provider: Jac Irving Other Providers: Rachel Martinez ; Maria Fernanda, Dexter Interventions: Discharge Summary Assessment (RN) Last Done: 12/04/20 16:11 Supervising Physician Co-Signing Physician Notes I personally examined the patient and verified all sandy points of history and exam, discussed case, and agree with decision making with Dr Cherry Overall feeling better, feeling very bored. Would like to get out of the hospital. Breathing feels like it she is at her baseline. HEENT normocephalic atraumatic mucous membranes moist. Lungs show right greater than left scattered rhonchi no wheezes no rales good effort good air entry, no accessory muscle use. Skin shows no rashes no pallor or icterus. Neuro without focal deficits. Left foot with dressed heel ulcer and no tracking erythema, second toe with ulcer with thick dark eschar nontender. Acute on chronic hypoxic respiratory failureappears to have been a combination of a bronchitis, and likely a degree of pulmonary edemaessentially representing acute HFpEF probably from steroid mediated fluid retention. Overall is impr austyn, notes that she is breathing well, appears to be at or better than her baseline as far as oxygenation, discussed that with the bronchitis type mechanism it may take quite a while for the mucus to clear, but no specific treatment really appears to be required. Stable for return to SNF. Heel ulcerprobably stage IIongoing outpatient wound care. She has thicker eschar covered ulcer on her second toe with what appears to be underlying osteomyelitis, given her age, lack of surrounding infection, and overall comorbidities, while orthopedic evaluation could be considered for the wound and infected toe itself, it may be better managed as a local wound issue to prevent her from suffering consequences of treatment she may not acutely need. Outpatient wound clinic follow-up. Stable for return to SNF. Otherwise as above. Resident Activity Tracking Resident Involvement: Resident Care Provided Care Provided: Adult [facility]
== END 2020-12-04 16:20 ==
LOC: ED 01:48 → SUATTDRO 03:47 → 3N 03:47 → INTOOBSV 03:47 → 3N 05:44 → 3E 20:24